=== PATIENT | female | born 1940 | race Caucasian/White ===

== ENCOUNTER 2022-01-18 10:02 | Emergency (ER) | payer OTHER, BC ==
--- OUTSIDE RECORDS SUMMARY | 2022-01-18 10:09 | XMS REPORT | Continuity of Care Document ---
:1940 Author Organization [facility] t Address [address] Brown [address] [place] [id number] Care Team Providers Name Role Phone SHANIQUE MARTÍNEZ Primary Care Physician Unavailable OUMOU SOTO Attending Clinician Unavailable MANUEL SIMS Attending Clinician Unavailable MARTA LOFTON Attending Clinician Unavailable MARTA LOFTON Attending Clinician Unavailable CATE NAZARIO Attending Clinician Unavailable DAMARIS GRUBER Attending Clinician Unavailable Damaris Gruber NP Attending Clinician FAYE MIRAMONTES Attending Clinician Unavailable Faye Miramontes MD Attending Clinician Doctor Unassigned, [place] Attending Clinician Unavailable TAMMY MUÑOZ Attending Clinician Unavailable Oumou Soto MD Attending Clinician Manuel Sims MDHTony Attending Clinician 2, [facility] Attending Clinician Unavailable FELISA CORRIGAN Attending Clinician Unavailable Mateo Funk DO Attending Clinician Josesito Hoffman Attending Clinician Tammy Muñoz MD Attending Clinician Field-Hrt, Visual Attending Clinician Unavailable Susan COREA, Stephany Rosales Attending Clinician [phone] FAYE MIRAMONTES Admitting Clinician Unavailable SIMSMANUEL DELUNA Admitting Clinician Unavailable Payers Payer Name Policy Type Policy Number Effective Date Expiration Date Sonido walter MEDICARE PART A \\T\\ [id number] 2003 B 00:00:00 BCBS TRADITIONAL [id number] 2014 00:00:00 MEDICARE PART A \\T\\ [id number] 2013 B - MEDICARE 00:00:00 MEDICARE SUPPLEMENT [id number] 2016 - BCBS [facility]00[facility]00 [id number] 2004 00:00:00 Problems Condition Condition Condition Status Onset Resolution Last Treating Co mments Source Name Details Category Date Date Treatment Clinician Date 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 7-20 it y of ium [place] complex 00 Medical (MAC) (MAC) Branch infection infection Essential Essential Disease Active Uni vers hypertensi hypertensi 7-20 it y of on on 00:00: [place] 00 Medical Branch Keratoconj Keratoconj Disease Active B nino unctivitis unctivitis 6-13 Co llege sicca due sicca due 00:00: of to to 00 Medicin decreased decreased e tear tear production production , , 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 Co llege and and 00:00: of basement basement 00 Medici n 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 3-02 Co llege eyes eyes 00:00: of 00 Medicin e 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 00 Medicin eyes eyes e 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, glaucoma, 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, right eye, 00 Me dicin 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 [facility] (epiretina (epiretina 9-23 Co llege l l 00:00: of membrane, membrane, 00 Medi cristo right eye) right eye) e ERM OD ERM OD Disease Active [facility] (epiretina (epiretina 11-17 Co llege l l 00:00: of membrane, membrane, 00 Medi cristo right eye) right eye) e POAG POAG Disease Active 2014-02 Overview: [facility] (primary (primary 03-28 Right eye Col lege open-angle open-angle 00:00: of glaucoma) glaucoma) 00 Medi cristo e 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 03-28 Co llege of both of both 00:00: of eyes eyes 00 Medicin e Neoplasm Neoplasm Disease Active [facility] r of of 1-14 College uncertain uncertain 00:00: of behavior behavior 00 Medici n of skin of skin e 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 00:00: of 00 Medicin e Vitreous Vitreous Disease Active [facility] degenerati degenerati 11-17 Co llege on on 00:00: of 00 Medicin e Borderline Borderline Disease Active [facility] glaucoma glaucoma 08-19 Colleg e with with 00:00: of ocular ocular 00 Medicin hypertensi hypertensi e on on Dryness of Dryness of Disease Active [facility] eye eye - College 00:00: of 00 Medicin e Pulmonary Pulmonary Disease Active 2008-02 Last [facility] nodule nodule 03-30 [facility] 00:00: t & Plan: of 00 Progressi Medicin ve RLL e nodules and lingula nodule- r/o Ca vs Laura. PET scan 11/03 - positive uptake, but mild. Discussed different ial diagnosis of Nodules- malignanc y, atypical malignanc y.Will proceed with bronchosc opy and biopsy- Feb 03 at 8 am. Risks benefits discussed in detail-. preop labs ordered. No known No known Disease Metho di active active st problems problems Hospit a l Anxiety Anxiety Problem Active 2019-06-13 Me moria (finding) (finding) 21:17:45 l Active [place] Problem 06/13/2019 [facility] Arthritis Arthritis Problem Active 2019-06-13 Memoria (disorder) (disorder) 21:17:45 l Active [place] Problem 06/13/2019 [facility] Bronchitis Bronchiti Problem Active 2019-06-13 [facility] (disorder) s 21:17:45 l (disorder) Robin n Active Problem 06/13/2019 [facility] Fatigue Fatigue Problem Active 2019-06-13 Me moria (finding) (finding) 21:17:45 l Active [place] Problem 06/13/2019 [facility] Glaucoma Glaucoma Problem Active 2019-06-13 Memoria (disorder) (disorder) 21:17:45 l Active Rick Problem 06/13/2019 [facility] Hyperlipid Hyperlipi Problem Active 2019-06-13 Memoria emia demia 21:17:45 l (disorder) (disorder) He rmann Active Problem 06/13/2019 [facility] Hypertensi Hypertens Problem Active 2019-06-13 Memoria ve lisa 21:17:45 l disorder, disorder, Herm meryl systemic systemic arterial arterial (disorder) (disorder) Active Problem 06/13/2019 [facility] Lumbar Lumbar Problem Active 2019-06-13 Jason angelica radiculopa radiculopa 21:17:45 l thy thy Rick (disorder) (disorder) Active Problem 06/13/2019 [facility] Neuropathy Neuropath Problem Active 2019-06-13 Memoria of lower y of lower 21:17:45 l limb limb [place] (disorder) (disorder) Active Problem 06/13/2019 [facility] Allergies, Adverse Reactions, Alerts Allergy Allergy Status Severity Reaction(s) Onset Inactive Treating Comm ents Source Name Type Date Date Clinician SULFA Drug Active Other-Cmnt 2021-02 Univer s (SULFONA Class 0-27 ity of MIDE 00:00: [place] ANTIBIOT 00 Medical ICS) Branch Sulfa Propensi Active Other - See 2021-02 Abdominal Univers (Sulfona ty to comments 0-27 cramping ity of mide adverse 00:00: [place] Antibiot reaction 00 Medica l ics) s Branch Adhesive Propensi Active Hives Univer s Tape-Chrissie ty to 8-09 ity of icones adverse 00:00: [place] reaction 00 Medical s Branch ADHESIVE DRUG Active Hives Univers TAPE-CHRISSIE 8-09 ity of ICONES 00:00: [place] 00 Medical Branch Fluoresc Propensi Active Other (See Burning B aylor ein-Nas ty to Comments) 6-13 sensation Co llege xinate adverse 00:00: of reaction 00 Medicin s to e drug Adhesive Propensi Active Rash RednessOt [place] ty to 08-12 her College adverse 00:00: reaction( of reaction 00 s): Other Medic in s to (See e substanc Comments) e rednessRe dness Adhesive Drug Active Other (See redness [facility] Codeine Drug Active Other (See Flushing [facility] 08-12 [facility] Sulfa Drug Active Nausea And [facility] (Sulfona [facility]ergy [facility]om[facility]12 [facility] mide [facility] Medical Antibiot 00 Center ics) Adhesive Propensi Active Rash Redness Metho di ty to 08-12 st adverse 00:00: Hospita reaction 00 l s to drug ADHESIVE Allergy [facility] Other [facility] CODEINE Allergy Active Other [facility] SULFA Allergy Active N\\T\\V [facility] (SULFONA 08-12 [facility] MIDE 00:00: Medical ANTIBIOT 00 Center ICS) Sulfa Propensi Active Nausea And [facility] Antibiot ty to Vomiting 08-11 Colleg e ics adverse 00:00: of reaction 00 Medicin s to e drug Sulfa Propensi Active Other Methodi (Sulfona ty to 08-11 reaction( st mide adverse 00:00: s): Hospita Antibiot reaction 00 Nausea l ics) s to And drug Vomiting CODEINE DRUG Active Anaphylaxis Univ ers INGREDI 08-12 ity of 00:00: [place] 00 Medical Branch Codeine Propensi Active Anaphylaxis Un cathy ty to 18 ity of adverse 00:00: [place] reaction 00 Medical s Branch Codeine Propensi Active Dermatitis 2008-02 Face [place] Phosphat ty to 03-30 flush College e adverse 00:00: of reaction 00 Medicin s to e drug Predniso Propensi Active Anxiety 2008-02 [place], [place] j[place] ne ty to 03-30 nervous College adverse 00:00: of reaction 00 Medicin s to e drug Codeine Propensi Active Dermatitis 2008-02 Face [facility] Phosphat ty to 03-[address] adverse 00:00: Hospita reaction 00 l s to drug Social History Social Habit Start Date Stop Date Quantity Comments Source History SDOH [facility] History SDOH [facility] Alcohol Std Medical Cent[facility] r Drinks History SDOH [facility] Alcohol Binge Medical [address] Exposure to 2021-12-11 2021-12-21 Not sure University SARS-CoV-2 00:00:00 10:42:00 [facility] (event) [place] Tobacco use and 2021-09-05 2021-09-05 Smokeless tobacco Un iversity of exposure 00:00:00 00:00:[address] [facility] Social History 2018-04-01 2018-04-01 [facility] 17:31:49 17:31:49 Alcohol intake 2014-12-29 2014-12-29 [facility] [facility] (finding) History SDOH 2014-12-28 2014-12-[address] [facility] Alcohol Comment 00:00:00 00:00:00 Medical C enter Sex [birth year] RASHID Nath kes 00:00:00 00:00:00 Medical Center Smoking Status Start Date Stop Date Source Never smoked tobacco [facility] Medications Ordered Filled Start Stop Current Ordering Indication Dosage Frequency Signature Comments Components Source Medication Medication Date Date Medication? Clinician (SIG) Name Name doxycycline 2021-02 Yes [id number] 100mg Take 1 Univers hyclate 100 0-27 capsule by it y of mg capsule 00:00: mouth in [place] as the Medical morning Branch and 1 capsule in the evening. levoFLOXaci 2021-02 No 750mg 750 mg, U nivers n 0-26 10-26 Oral, ONCE ity of (LEVAQUIN) 17:45: 17:17 NOW, 1 [place] tablet 750 00 :00 dose, On Medic al mg Wed Branch 12/20/21 at 1245, JATINDER
Re ason for Anti-Infec tive: Documented Infection< br>Documen arvin Infection Site: Respirator y
Durat ion of Therapy: 7 days cefTRIAXone 2021-02- No 1000mg 1,000 mg, Univers (ROCEPHIN) 0-26 - IV ity of 1,000 mg in 17:00: 17:27 Piggyback, [place] NaCl 0.9% 00 :00 ONCE, 1 Medical (NS) 50 mL dose, On Branc h MINI-BAG 12/20/21 at 1200, Administer over 30 Minutes, 50 mL
Reas on for Anti-Infec tive: Documented Infection< br>Documen arvin Infection Site: Respirator y
Du ration of Therapy: 7 days iopamidol 2021-02- No [id number] 80mL 80 mL, U nivers (ISOVUE 0-20 12- Intravenou ity o f 370-500 mL) 17:00: 17:00 s, ONCE, 1 [place] injection 00 :00 dose, On Medica l 80 mL Wed Branch 12/20/21 at 1200, Routine levoFLOXaci 2021-02 Yes [id number] 750mg Take 1 Univers n 0-26 tablet by ity of (LEVAQUIN) 00:00: mouth [place] 750 mg 00 every 24 Medical tablet (twenty- Branch ur) hours. benzonatate 2021-02 Yes [id number] 100mg Take 1 Univers 100 mg 0-26 capsule by ity of capsule 00:00: mouth 3 [place] 00 (three) Medical times Branch daily as needed for Cough. levoFLOXaci 2021-02 Yes [id number] 750mg Take 1 Univers n 0-26 tablet by ity of (LEVAQUIN) 00:00: mouth [place] 750 mg 00 every 24 Medical tablet (- Branch ur) hours. benzonatate 2021-02 Yes [id number] 100mg Take 1 Univers 100 mg 0-26 capsule by ity of capsule 00:00: mouth 3 [place] 00 (three) Medical times Branch daily as needed for Cough. fexofenadin Yes 60mg Take 60 mg Univers e 60 mg 7-12 by mouth ity of tablet 14:33: daily. 1 [place] [address] tablet Medical daily Branch ALPHAGAN P Yes Place in Uni vers OPHTHALMIC 7-12 each eye. ity of 14:33: [place] [address] Medical Branch Ascorbate Yes Take by Unive rs Calcium 500 7-12 mouth. ity of mg Tab 14:33: Once a day [place] 03 Medical Branch Magnesium 2022-0 Yes Take by Unive rs (MAGNACAPS) 7-12 mouth. 2 ity of 100 mg Cap 14:33: capsules [place] as 03 twice a Medical day Branch aspirin 81 0 Yes 81mg Take 81 mg U nivers mg EC 7-12 by mouth ity of tablet 14:33: daily. [place] [address] Medical Branch nebulizer Yes Univers accessories 7-12 ity of (HYPERSONIQ 14:33: [place] NEBULIZER Medical [facility]) fexofenadin 0 Yes 60mg Take 60 mg Univers e 60 mg 7-12 by mouth ity of tablet 14:33: daily. 1 [place] [address] tablet Medical daily Branch ALPHAGAN P Yes Place in Uni vers OPHTHALMIC 7-12 each eye. ity of 14:33: [address] Branch Ascorbate Yes Take by Unive rs Calcium 500 7-12 mouth. ity of mg Tab 14:33: Once a day [place] [address] Medical [place] Magnesium Yes Take by Unive rs (MAGNACAPS) 7-12 mouth. 2 ity of 100 mg Cap 14:33: capsules [place] as 03 twice a Medical day Branch aspirin 81 0 Yes 81mg Take 81 mg U nivers mg EC 7-12 by mouth ity of tablet 14:33: daily. [address] Branch nebulizer Yes Univers accessories 7-12 ity of (HYPERSONIQ 14:33: [place] NEBULIZER Medical [facility]) fexofenadin 0 Yes 60mg Take 60 mg Univers e 60 mg 7-12 by mouth ity of tablet 14:33: daily. 1 [place] [address] tablet Medical daily Branch ALPHAGAN P Yes Place in Uni vers OPHTHALMIC 7-12 each eye. ity of 14:33: [address] Branch Ascorbate 0 Yes Take by Unive rs Calcium 500 7-12 mouth. ity of mg Tab 14:33: Once a day [place] [address] Medical Branch Magnesium 0 Yes Take by Unive rs (MAGNACAPS) 7-12 mouth. 2 ity of 100 mg Cap 14:33: capsules [place] as 03 twice a Medical day Branch aspirin 81 2021-0 Yes 81mg Take 81 mg U nivers mg EC 7-12 by mouth ity of tablet 14:33: daily. [place] 03 Medical Branch nebulizer Yes Univers accessories 7-12 ity of (HYPERSONIQ 14:33: [place] NEBULIZER Medical [facility] Branch [facility]) fexofenadin Yes 60mg Take 60 mg Univers e 60 mg 712 by mouth ity of tablet 14:33: daily. 1 tablet Medical daily Branch ALPHAGAN P Yes Place in [facility] vers OPHTHALMIC 7-12 each eye. ity of 14:33: Medical Branch Ascorbate Yes Take by Unive rs Calcium 500 7-12 mouth. ity of mg Tab 14:33: Once a day Medical Branch Magnesium Yes Take by Unive rs (MAGNACAPS) 7-12 mouth. 2 ity of 100 mg Cap 14:33: capsules [place] twice a Medical day Branch aspirin 81 Yes 81mg Take 81 mg U nivers mg EC 12 by mouth ity of tablet 14:33: daily. Medical [place] nebulizer Yes Univers accessories 7-12 ity of (HYPERSONIQ 14:33: [place] NEBULIZER Medical [facility]) CITRACAL Yes Take by Univer s PLUS ORAL 3-31 mouth. ity of 13:09: Twice a Medical Branch hyoscyamine Yes .125mg Take 0.125 Univers 0.125 mg 3-31 mg by ity of tablet 13:09: mouth. [facility] Branch CITRACAL Yes Take by Univer s PLUS ORAL 3-31 mouth. ity of 13:09: Twice a Medical Branch hyoscyamine 0 Yes .125mg Take 0.125 Univers 0.125 mg 3-31 mg by ity of tablet 13:09: mouth. Medical Branch CITRACAL Yes Take by Univer s PLUS ORAL 3-31 mouth. ity of 13:09: Twice a Medical Branch hyoscyamine 0 Yes .125mg Take 0.125 Univers 0.125 mg 3-31 mg by ity of tablet 13:09: mouth. Medical [place] CITRACAL Yes Take by Univer s PLUS ORAL 3-31 mouth. ity of 13:09: Twice a [place] 20 day Medical Branch hyoscyamine 0 Yes .125mg Take 0.125 Univers 0.125 mg 3-31 mg by ity of tablet 13:09: mouth. 20 Medical Branch losartan 25 0 Yes [id number] 25mg Take 1 Univers mg tablet 3-31 tablet by ity o f 00:00: mouth [place] 00 daily. Medical Branch losartan 25 2021-0 Yes [id number] 25mg Take 1 Univers mg tablet 3-31 tablet by ity o f 00:00: mouth [place] 00 daily. Medical Branch losartan 25 2021-0 Yes [id number] 25mg Take 1 Univers mg tablet 3-31 tablet by ity o f 00:00: mouth [place] 00 daily. Medical Branch losartan 25 0 Yes [id number] 25mg Take 1 Univers mg tablet 3-31 tablet by ity o f 00:00: mouth [place] 00 daily. Medical Branch multivit-mi Yes 1{tbl} Take 1 Me thodi nerals/ferr 7-07 tablet by ou fum 14:24: mouth. Hospita (MULTI 07 l VITAMIN ORAL) pregabalin Yes 50mg [id number] Take 50 mg Methodi (LYRICA) 50 7- [id number] by mouth 3 st MG capsule 14:24: 3D (three) Hosp parmjit 07 times a l day. ascorbate Yes Take by Metho di calcium 7- mouth. st (VITAMIN C 14:24: Hospita ORAL) 07 l LUTEIN ORAL Yes Take by Met hodi 7-[address] 14:24: Hospita 07 l B-complex Yes 1{tbl} QD Take 1 Meth shashi with 7-07 tablet by vitamin C 14:24: mouth Hospita tablet 07 daily. l Lactobacill Yes Take by Met hodi us 7- mouth. st acidophilus 14:24: Hospit a (PROBIOTIC 07 l ORAL) calcium Yes Take by Methodi citrate/vit 7-07 mouth. martínez D3 14:24: Hospita (CITRACAL 07 l REGULAR ORAL) multivit-mi Yes 1{tbl} Take 1 Me thodi nerals/ferr 7-07 tablet by ous fum 14:24: mouth. Hospita (MULTI 07 l VITAMIN ORAL) pregabalin Yes 50mg Q.[id number] Take 50 mg Methodi (LYRICA) 50 08-31 [id number] by mouth [address] MG capsule 14:24: 3D (three) Hosp parmjit 07 times a l day. ascorbate Yes Take by Metho di calcium 7- mouth. st (VITAMIN C 14:24: Hospita ORAL) 07 l LUTEIN ORAL Yes Take by Met hodi - mouth. st 14:24: Hospita 07 l B-complex Yes 1{tbl} QD Take 1 Meth shashi with 08-31 tablet by vitamin C 14:24: mouth Hospita tablet 07 daily. l Lactobacill Yes Take by Met hodi us 08-[address] acidophilus 14:24: Hospit a (PROBIOTIC 07 l ORAL) calcium Yes Take by Methodi citrate/vit 08-[address] martínez D3 14:24: Hospita (CITRACAL 07 l REGULAR ORAL) gentamicin Yes MIX 1 VIAL U nivers 40 mg/mL 2-23 (80MG) ity of injection 00:00: WITH 2ML [place] 00 OF NORMAL Medical SALINE AND Branch NEBULIZE TWICE A DAY FOR 7 DAYS ON AND FOR 7 DAYS OFF gentamicin Yes MIX 1 VIAL U nivers 40 mg/mL 2-23 (80MG) ity of injection 00:00: WITH 2ML [place] 00 OF NORMAL Medical SALINE AND Branch NEBULIZE TWICE A DAY FOR 7 DAYS ON AND FOR 7 DAYS OFF gentamicin Yes MIX 1 VIAL U nivers 40 mg/mL 2-23 (80MG) ity of injection 00:00: WITH 2ML [place] 00 OF NORMAL Medical SALINE AND Branch NEBULIZE TWICE A DAY FOR 7 DAYS ON AND FOR 7 DAYS OFF gentamicin Yes MIX 1 VIAL U nivers 40 mg/mL 2-23 (80MG) ity of injection 00:00: WITH 2ML [place] 00 OF NORMAL Medical SALINE AND Branch NEBULIZE TWICE A DAY FOR 7 DAYS ON AND FOR 7 DAYS OFF estazolam 2 Yes TAKE 1 Univ ers mg tablet 2-11 TABLET BY ity o f 00:00: MOUTH AT [place] 00 BEDTIME Medical NEEDED FOR Branch SLEEP estazolam 2 Yes TAKE 1 Univ ers mg tablet 2-11 TABLET BY ity o f 00:00: MOUTH AT [place] BEDTIME Medical NEEDED FOR Branch SLEEP estazolam 2 Yes TAKE 1 Univ ers mg tablet 2-11 TABLET BY ity o f 00:00: MOUTH AT [place] BEDTIME Medical NEEDED FOR Branch SLEEP estazolam 2 Yes TAKE 1 Univ ers mg tablet 2-11 TABLET BY ity o f 00:00: MOUTH AT [place] BEDTIME Medical NEEDED FOR Branch SLEEP atorvastati Yes 10mg Take 10 mg Univers n 20 mg 2-02 by mouth ity of tablet 00:00: daily. Medical Branch azithromyci Yes TAKE 2 Univ ers n 250 mg 2-02 TABLETS BY ity o f tablet 00:00: MOUTH ON [place] Saturday, Medical SATURDAY, AND SATURDAY EACH atorvastati Yes 10mg Take 10 mg Univers n 20 mg 2-02 by mouth ity of tablet 00:00: daily. Medical Branch azithromyci Yes TAKE 2 Univ ers n 250 mg 2-02 TABLETS BY ity o f tablet 00:00: MOUTH ON [place] Saturday, Medical SATURDAY, AND SATURDAY EACH WEEK atorvastati Yes 10mg Take 10 mg Univers n 20 mg 2-02 by mouth ity of tablet 00:00: daily. Medical Branch azithromyci Yes TAKE 2 Univ ers n 250 mg 2-02 TABLETS BY ity o f tablet 00:00: MOUTH ON [place] Saturday, Medical SATURDAY, AND SATURDAY EACH WEEK atorvastati Yes 10mg Take 10 mg Univers n 20 mg 2-02 by mouth ity of tablet 00:00: daily. Medical Branch azithromyci Yes TAKE 2 Univ ers n 250 mg 2-02 TABLETS BY ity o f tablet 00:00: MOUTH ON [place] Saturday, Medical SATURDAY, AND SATURDAY EACH WEEK timolol 2019-02 Yes Timoptic Univer s maleate PF 0-15 [place] ity of ophthalmic 00:00: (PF) 0.5 % [place] d[place] 00 eye drops Medical (TIMOPTIC in a Branch OCUDOSE, dropperett PF,) 0.5 % e drops tafluprost, 2019-02 Yes 1[drp] 1 Drop. U nivers PF, 0-15 ity of (ZIOPTAN, 00:00: [place] PF,) 0.0015 00 Medical % Dpet Branch timolol 2019-02 Yes Timoptic Univer s maleate PF 0-15 [place] ity of ophthalmic 00:00: (PF) 0.5 % [place] d[place] 00 eye drops Medical (TIMOPTIC in a Branch OCUDOSE, dropperett PF,) 0.5 % e drops tafluprost, 2019-02 Yes 1[drp] 1 Drop. U nivers PF, 0-15 ity of (ZIOPTAN, 00:00: [place] PF,) 0.0015 00 Medical % Dpet Branch timolol 2019-02 Yes Timoptic Univer s maleate PF 0-15 [place] ity of ophthalmic 00:00: (PF) 0.5 % [place] d[place] 00 eye drops Medical (TIMOPTIC in a Branch OCUDOSE, dropperett PF,) 0.5 % e drops tafluprost, 2019-02 Yes 1[drp] 1 Drop. U nivers PF, 0-15 ity of (ZIOPTAN, 00:00: [place] PF,) 0.0015 00 Medical % Dpet Branch timolol 2019-02 Yes Timoptic Univer s maleate PF 0-15 [place] ity of ophthalmic 00:00: (PF) 0.5 % [place] d[place] 00 eye drops Medical (TIMOPTIC in a Branch OCUDOSE, dropperett PF,) 0.5 % e drops tafluprost, 2019-02 Yes 1[drp] 1 Drop. U nivers PF, 0-15 ity of (ZIOPTAN, 00:00: [place] PF,) 0.0015 00 Medical % Dpet Branch pregabalin Yes 75 mg = 1 Me moria 75 MG Oral 4-02 cap, PO, l Capsule 20:07: Bedtime, # Herm meryl [Lyrica] 00 30 cap, 3 Refill(s), [id number] pregabalin 2020-0 Yes 75 mg = 1 Me moria 75 MG Oral 4-02 cap, PO, l Capsule 20:07: Bedtime, # Karon meryl [Lyrica] 00 30 cap, 3 Refill(s), Pharmacy: [facility] #[id number] pregabalin 2020-0 No 75 mg = 1 Me moria 75 MG Oral 4-02 cap, PO, l Capsule 16:34: Bedtime, X Karon sheth [Lyrica] 00 30 day, # 30 cap, 3 Refill(s), Pharmacy: [place] [id number] [facility] pregabalin 2020-0 No 75 mg = 1 Me moria 75 MG Oral 4-02 cap, PO, l Capsule 16:34: Bedtime, X Karon sheth [Lyrica] 00 30 day, # 30 cap, 3 Refill(s), Pharmacy: [place] [id number] [facility] Bioflavonoi 2020-0 Yes 1{tbl} Take 1 Tab [facility] d Products 1-30 by mouth [facility] (CHANTEL-C) 21:21: daily. of 500 MG TABS 52 Medicin e Multiple 2020-0 Yes 1{tbl} Take 1 Tab B aylor Vitamin 1-30 by mouth [place] (ONE DAILY) 21:21: daily. of TABS 52 Medicin e Greig-3 2020-0 Yes 1[tbs_u Take 1 [facility] Fatty Acids 1-30 s] Tbsp by [facility] (OMEGA 3 21:21: mouth of OR) 52 daily. Medicin e Magnesium 2020-0 Yes 2{capsu Take 2 [place] Oxide 400 1-30 le} Caps by [place] MG CAPS 21:21: mouth At of 52 bedtime. Medicin e Calcium 2020-0 Yes Take by Jovanni Citrate 1-30 mouth. [place] (CITRACAL 21:21: of PO) 52 Medicin e losartan 2020-0 Yes losartan [facility] (COZAAR) 50 1-30 50 mg College MG tablet 21:21: tablet of 52 Medicin e calcium 2020-0 Yes Take by [facility] citrate 1-30 mouth. [place] (CALCITRATE 21:21: of ) 950 MG 52 Medicin tablet e Timolol 2020-0 Yes 1[drp] Place 1 [facility] Maleate PF 1-30 Drop into Tamela ege (TIMOPTIC 00:00: both eyes of OCUDOSE) 00 two times Medici n 0.5 % SOLN daily. e ZIOPTAN Yes 1[drp] Place 1 [facility] 0.0015 % 1-30 Drop into Colleg e SOLN 00:00: both eyes of 00 daily. Medicin e lidocaine Yes [id number] Apply up [facility] (XYLOCAINE) 1-06 to three [place]ela ege 5 % 00:00: times a of ointment 00 day for Medicin pain in e finger. pregabalin 2018-02 Yes 75 mg = 1 Me moria 75 MG Oral 2-19 cap, PO, l Capsule 17:26: Bedtime, # Herm meryl [Lyrica] 55 30 cap, 3 Refill(s) pregabalin 2018-02 Yes 75 mg = 1 Me moria 75 MG Oral 2-19 cap, PO, l Capsule 17:26: Bedtime, # Herm meryl [Lyrica] 55 30 cap, 3 Refill(s) Estazolam 2 2018-02 Yes TAKE ONE Ba ylor MG TABS 1-08 TABLET BY [place] 00:00: MOUTH of 00 NEEDED AT Medicin BEDTIME e FOR SLEEP azithromyci 2018-02 Yes TAKE 2 [facility] or n 1-08 TABLETS BY [place] (ZITHROMAX) 00:00: MOUTH ONCE of 250 MG 00 DAILY ON Medicin tablet SATURDAY,SAT e ,Sat tobramycin- 2019- No 1[in_us Apply 1 [facility] dexamethaso 10-29 09-05 ] Inch to Tamela ege ne 00:00: 04:59 eye once of (TOBRADEX) 00 :00 for 1 Medicin 0.3-0.1 % dose. e ophthalmic ointment ZIOPTAN Yes 1[drp] Place 1 [facility] 0.0015 % 8-02 Drop into Colleg e ophthalmic 00:00: both eyes of solution 00 daily. Medicin e ZIOPTAN 2020- No 1[drp] Place 1 [facility] or 0.0015 % 8-02 01-30 Drop into Colle ge ophthalmic 00:00: 00:00 both eyes o f solution 00 :00 daily. Medicin e pregabalin Yes 75 mg = 1 Me moria 75 MG Oral 5-07 cap, PO, l Capsule 16:20: Bedtime, # Herm meryl [Lyrica] 04 30 cap, 3 Refill(s) pregabalin 2019-0 Yes 75 mg = 1 Me moria 75 MG Oral 5-07 cap, PO, l Capsule 16:20: Bedtime, # Karon meryl [Lyrica] 04 30 cap, 3 Refill(s) Bioflavonoi 2019-0 Yes 1{tbl} Take 1 Tab Jovanni d Products -02 by mouth Colle ge (CHANTEL-C) 19:07: daily. of 500 MG TABS 29 Medicin e Multiple 2019-0 Yes 1{tbl} Take 1 Tab B aylor Vitamin -02 by mouth [place] (ONE DAILY) 19:07: daily. of TABS 29 Medicin e Greig-3 2018- Yes 1[tbs_u Take 1 [facility] Fatty Acids 05-27 s] Tbsp by [facility] (OMEGA 3 19:07: mouth of OR) 29 daily. Medicin e Magnesium 2018- Yes 2{capsu Take 2 [place] jacobo Oxide 400 05-27 le} Caps by [place] MG CAPS 19:07: mouth At of 29 bedtime. Medicin e Sodium Yes Take by [facility] Chloride, 4- nebulizati Tamela ege Inhalant, 19:07: on. of (HYPER-CONNIE) 29 Medicin 7 % NEBU e Calcium Yes Take by [facility] Citrate 05-27 mouth. College (CITRACAL 19:07: of PO) 29 Medicin e Sodium Yes Take by [facility] Chloride, 4- nebulizati Tamela ege Inhalant, 19:07: on. of (HYPER-CONNIE) 29 Medicin 7 % NEBU e Timolol Yes 1[drp] Place 1 [facility] Maleate PF 4-02 Drop into Tamela ege (TIMOPTIC 00:00: both eyes of OCUDOSE) 00 two times Medici n 0.5 % SOLN daily. e Timolol 2020- No 1[drp] Place 1 [facility] or Maleate PF 4-02 01-30 Drop into Col lege (TIMOPTIC 00:00: 00:00 both eyes of OCUDOSE) 00 :00 two times Medici n 0.5 % SOLN daily. e erythromyci 2018- Yes [id number] Apply 02/[address] (ROMYCIN) 00:00: three of ophthalmic 00 times a da Med icin ointment right eye e erythromyci Yes [id number] Apply 02/[address] (ROMYCIN) 00:00: three of ophthalmic 00 times a da Med icin ointment right eye e pregabalin No 75 mg = 1 Me moria 75 MG Oral 2-05 cap, PO, l Capsule 18:01: Bedtime, # Herm meryl [Lyrica] 00 30 cap, 3 Refill(s) pregabalin No 75 mg = 1 Me moria 75 MG Oral 2-05 cap, PO, l Capsule 18:01: Bedtime, # Herm meryl [Lyrica] 00 30 cap, 3 Refill(s) tafluprost Yes 1 drp, Memor ia 2-05 BOTH EYES, l 17:58: QPM, 0 Rick 00 Refill(s) tafluprost Yes 1 drp, Memor ia 2-05 BOTH EYES, l 17:58: QPM, 0 [place] 00 Refill(s) 12 HR Yes 1 drp, Memoria Timolol 5 2-05 BOTH EYES, l MG/ML 17:18: BID, 0 Rick Ophthalmic 00 Refill(s) Solution [Timoptic] Colistin Yes 0 Memoria 2-05 Refill(s) l 17:18: [place] 00 gabapentin No 300 mg = 1 M emoria 300 MG Oral 2-05 cap, PO, l Capsule 17:18: Bedtime, 0 Herm meryl 00 Refill(s) Hydrochloro Yes 12.5 mg, Me moria thiazide 2-05 PO, Daily, l 17:18: 0 Rick 00 Refill(s) Hyoscyamine No 0 Memori a 2-05 Refill(s) l 17:18: Rick 00 hyoscyamine Yes 0.125 mg = Memoria 0.125 mg 2-05 1 tab, PO, l oral tablet 17:18: PRN, PRN He rmann 00 spasm, # 40 tab, 0 Refill(s) 12 HR 2019-0 Yes 1 drp, Memoria Timolol 5 2-05 BOTH EYES, l MG/ML 17:18: BID, 0 Rick Ophthalmic 00 Refill(s) Solution [Timoptic] Hydrochloro Yes 12.5 mg, Me moria thiazide 2-05 PO, Daily, l 17:18: 0 [place] 00 Refill(s) Colistin Yes 0 Memoria 2-05 Refill(s) l 17:18: Rick 00 gabapentin No 300 mg = 1 M emoria 300 MG Oral 2-05 cap, PO, l Capsule 17:18: Bedtime, 0 Herm meryl 00 Refill(s) Hyoscyamine No 0 Memori a 2-05 Refill(s) l 17:18: [place] 00 hyoscyamine Yes 0.125 mg = Memoria 0.125 mg 2-05 1 tab, PO, l oral tablet 17:18: PRN, PRN He rm 00 spasm, # 40 tab, 0 Refill(s) TIMOPTIC Yes PLACE 1 Method i OCUDOSE, 1-[address] PF, 0.5 % 00:00: BOTH EYES Hos carl dropperette 00 TWO TIMES l DAILY. TIMOPTIC Yes PLACE 1 Method i OCUDOSE, 1-[address] PF, 0.5 % 00:00: BOTH EYES Hos carl dropperette 00 TWO TIMES l DAILY. amLODIPine Yes 5mg QD Take 5 mg Me thodi (NORVASC) 5 1-[address] mg tablet 00:00: daily. Hospit a 00 l amLODIPine Yes 5mg QD Take 5 mg Me thodi (NORVASC) 5 1-[address] mg tablet 00:00: daily. Hospit a 00 l colistimeth 2017-02 Yes Method i ate 2-24 st (COLISTIN) 00:00: Hospita 150 mg 00 l injection colistimeth 2017-02 Yes Method i ate 2-24 st (COLISTIN) 00:00: Hospita 150 mg 00 l injection hyoscyamine 2017-02 Yes DISSOLVE Ba ylor (LEVSIN/SL) 1-15 1-2 College 0.125 MG SL 00:00: TABLETS of tablet 00 UNDER THE Medicin TONGUE e EVERY 4-6 HOURS NEEDED. hyoscyamine 2017-02 Yes DISSOLVE Me thodi (LEVSIN) -15 1-2 st 0.125 mg SL 00:00: TABLETS Hos carl tablet 00 UNDER THE l TONGUE EVERY 4-6 HOURS NEEDED. hyoscyamine 2017-02 Yes DISSOLVE Me thodi (LEVSIN) -15 1-2 st 0.125 mg SL 00:00: TABLETS Hos carl tablet 00 UNDER THE l TONGUE EVERY 4-6 HOURS NEEDED. tafluprost, Yes 1[drp] Apply 1 M ethodi PF, 9-[address] (ZIOPTAN, 00:00: eye. Hospita PF,) 0.0015 00 l % dropperette tafluprost, Yes 1[drp] Apply 1 M ethodi PF, 9-[address] (ZIOPTAN, 00:00: eye. Hospita PF,) 0.0015 00 l % dropperette TAFLUPROST/ 2014-02 Yes [facility] (FATIMAH, 08:41: Medical PF, OPHT) [facility] Missing or 2014-[address] Non-Formula -04 [facility] ry 08:41: Medical Medication [facility] TAFLUPROST/ 2014-02 Yes [facility] PF 1-04 eye(s[facility] (RENETTAOPTAN, 08:41: Medical PF, OPHT) 44 Center Missing or 2014-[address] Non-Formula -04 [facility] 08:41: Medical Medication 44 Center ascorbic 2014-02 Yes 1000mg QD Take 1,[address] acid 1-04 mg by [facility] (VITAMIN C) 08:41: mouth Medic al 1000 MG 43 daily. Center tablet magnesium 2014-02 Yes Take by [facility] Tab 104 mouth. [facility] tablet 08:41: Medical [facility] Center cetirizine 2014-02 Yes 10mg QD Take [address] (ZYRTEC) 10 04 by mouth Luke s MG tablet 08:41: daily. Medica l 43 [place] brimonidine 2014-02 Yes 1[drp] [id number] [address] (ALPHAGAN) 02-28 [id number] (three) [facility] 0.2 % 08:41: 3D times Medical ophthalmic 43 daily. [place] solution ascorbic 2014-02 Yes 1000mg QD Take 1,[address] acid 1-04 mg by [facility] (VITAMIN C) 08:41: mouth Medic al 1000 MG 43 daily. [place] tablet magnesium 2014-02 Yes Take by [facility] mg Tab 1-04 mouth. [facility] tablet 08:41: Medical 43 [place] cetirizine 2014-02 Yes 10mg QD Take [address] (ZYRTEC) 10 1-04 by mouth Luke s MG tablet 08:41: daily. Medica l 43 [place] brimonidine 2014-02 Yes 1[drp] [id number] [address] (ALPHAGAN) 1- [id number] (three) [facility] 0.2 % 08:41: 3D times Medical ophthalmic 43 daily. [place] solution rifampin Yes Take by [facility] (RIFADINE) 5-27 mouth. College 150 MG 00:00: of capsule 00 Medicin e ethambutol Yes Take by [facility] or (MYAMBUTOL) 5-27 mouth. Colleg e 400 MG 00:00: of tablet 00 Medicin e Immunizations Ordered Filled Immunization Date Status Comments Sour e Immunization Name Name SARS-COV-2 COVID-19 2020-04-15 Completed Unive rsity of PFIZER VACCINE 00:00:00 [facility] SARS-COV-2 COVID-19 2020-04-15 Completed Unive rsity of PFIZER VACCINE 00:00:00 [facility] SARS-COV-2 COVID-19 2020-04-15 Completed Unive rsity of PFIZER VACCINE 00:00:00 [facility] SARS-COV-2 COVID-19 2020-04-15 Completed Unive rsity of PFIZER VACCINE 00:00:00 [facility] PFIZER COVID-19 2020-04-15 Completed Confucianist MRNA VACCINATION 00:00:00 [facility] PFIZER COVID-19 2020-04-15 Completed Confucianist MRNA VACCINATION 00:00:00 [facility] SARS-COV-2 COVID-19 2020-03-25 Completed Unive rsity of PFIZER VACCINE 00:00:00 [facility] SARS-COV-2 COVID-19 2020-03-25 Completed Unive rsity of PFIZER VACCINE 00:00:00 [facility] SARS-COV-2 COVID-19 2020-03-25 Completed Unive rsity of PFIZER VACCINE 00:00:00 [facility] SARS-COV-2 COVID-19 2020-03-25 Completed Unive rsity of PFIZER VACCINE 00:00:00 [facility] PFIZER COVID-19 2020-03-25 Completed Confucianist MRNA VACCINATION 00:00:00 [facility] PFIZER COVID-19 2020-03-25 Completed Confucianist MRNA VACCINATION 00:00:00 Hospital Swine Flu (H1N1) 2009-01-27 Completed [facility] C ollege of 00:00:00 Medicine Swine Flu (H1N1) 2009-01-27 Completed [facility] ollege of 00:00:00 Medicine H1n1 Vaccine 2009-01-27 Completed University o f 00:00:00 [facility] H1n1 Vaccine 2009-01-27 Completed University o f 00:00:00 [facility] H1n1 Vaccine 2009-01-27 Completed University o f 00:00:00 [facility] H1n1 Vaccine 2009-01-27 Completed University o f 00:00:00 [facility] Vital Signs Vital Name Observation Time Observation Value Comments Source Systolic blood 2021-12-21 15:44:00 186 mm[Hg] Univer sity of pressure [facility] Diastolic blood 2021-12-21 15:44:00 93 mm[Hg] Unive rsity of pressure [facility] Heart rate 2021-12-21 15:44:00 75 /min [facility] Body temperature 2021-12-21 15:44:00 37.06 Azul [facility] Res[facility] rate 2021-12-21 15:44:00 18 /min [facility] Body height 2021-12-21 15:44:00 162.6 cm [facility] Body weight 2021-12-21 15:44:00 51.256 kg [facility] BMI 2021-12-21 15:44:00 19.40 kg/m2 [facility] Oxygen saturation in 2021-12-21 15:44:00 100 /min [facility] Arterial blood by [facility] Pulse oximetry Branch Systolic blood 2021-12-20 17:19:44 168 mm[Hg] Univer sity of pressure [facility] Diastolic blood 2021-12-20 17:19:44 61 mm[Hg] Unive rsity of pressure [facility] Heart rate 2021-12-20 17:19:44 64 /min [facility] Body temperature 2021-12-20 17:19:44 37.11 Azul Univ ersity [facility] Respiratory rate 2021-12-20 17:19:44 18 /min Univ ersity [facility] Oxygen saturation in 2021-12-20 17:19:44 97 /min University of Arterial blood by [facility] Pulse oximetry Branch Body weight 2021-12-20 15:10:00 51.256 kg [facility] BMI 2021-12-20 15:10:00 19.40 kg/m2 [facility] Systolic blood 2021-10-03 15:11:00 151 mm[Hg] Univer sity of pressure [facility] Diastolic blood 2021-10-03 15:11:00 64 mm[Hg] Unive rsity of pressure [facility] Heart rate 2021-10-03 15:11:00 62 /min [facility] Oxygen saturation in 2021-10-03 15:11:00 98 /min University of Arterial blood by [facility] Pulse oximetry Branch Body height 2021-10-03 15:03:00 162.6 cm [facility] Body weight 2021-10-03 15:03:00 51.71 kg [facility] BMI 2021-10-03 15:03:00 19.57 kg/m2 [facility] Systolic (mm Hg) 2019-02-12 17:01:00 Jason marshall Rick Diastolic (mm Hg) 2019-02-12 17:01:00 Paris diaz [place] Heart Rate 2019-02-12 17:01:00 [facility] Rick Respitory Rate 2019-02-12 17:01:00 Will rodriguez Rick Height 2019-02-12 17:01:00 162.56 cm [facility] [place] Weight 2019-02-12 17:01:00 [facility] Rick BMI Calculated 2019-02-12 17:01:00 Will Wernerann BMI Calculated 2018-07-01 15:56:00 Will rodriguez [place] Height 2018-07-01 15:56:00 162.56 cm [facility] [place] Weight 2018-07-01 15:56:00 [facility] Rick Systolic (mm Hg) 2018-07-01 15:56:00 Jason rial Rick Diastolic (mm Hg) 2018-07-01 15:56:00 Mem orial Rick Respitory Rate 2018-07-01 15:56:00 Memori al Rick Heart Rate 2018-07-01 15:56:00 [facility] Rick Systolic (mm Hg) 2018-04-01 17:16:00 Jason rial Rick Diastolic (mm Hg) 2018-04-01 17:16:00 Mem orial [place] Heart Rate 2018-04-01 17:16:00 [facility] [place] Respitory Rate 2018-04-01 17:16:00 Memori al Rick Height 2018-04-01 17:16:00 162.56 cm [facility] Rick Weight 2018-04-01 17:16:00 [facility] Rick BMI Calculated 2018-04-01 17:16:00 Memori al Rick Procedures Procedure Date / Time Performing Clinician Source Performed CONSENT/REFUSAL FOR 2021-12-21 15:39:02 [facility] CT CHEST PULMONARY 2021-12-20 15:55:00 Faye Miramontes [facility] ANGIOGRAM Medical Branch EKG-12 LEAD 2021-12-20 15:46:49 Faye Miramontes [facility] TROPONIN I 2021-12-20 15:36:00 Faye Miramontes [facility] COMP. METABOLIC PANEL 2021-12-20 15:36:00 Faye Miramontes [facility] ([id number]) [facility] CBC WITH DIFF 2021-12-20 15:36:00 Faye Miramontes [facility] RAPID INFLUENZA A/B 2021-12-20 15:36:00 Faye Miramontes [facility] N-TERMINAL PRO-BNP 2021-12-20 15:36:00 Faye Miramontes [facility] COVID-19 (ID NOW RAPID 2021-12-20 15:36:00 Faye Miramontes [facility] TESTING) Medical Branch NOTICE OF PRIVACY 2021-12-20 15:05:02 Doctor Unassigned, No Univ ersity [facility] PRACTICES Name Medical Branch CONSENT/REFUSAL FOR 2021-12-20 15:04:07 Doctor Unassigned, [facility] Name Medical Branch 24-2 LUZMARIA FASTER,OU-BOTH 2021-11-28 13:32:06 [facility] Medicine HRT, GLAUCOMA - OU - 2019-03-26 21:47:[address] [facility] BOTH EYES Medicine CORNEAL TOPOGRAPHY - OU 2018-11-10 23:02:48 Stephany Davis [facility] BOTH EYES S. Medicine Adenoidectomy [facility] Cataract surgery [facility] Tonsillectomy [facility] Plan of Care Planned Activity Planned Date Details Comments Source Future Scheduled 2022-01-15 HEPATITIS B Confucianist Test 09:51:01 VACCINES (1 of 3 - Hospital 3-dose series) [code = HEPATITIS B VACCINES (1 of 3 - 3-dose series)] Future Scheduled 2022-01-15 SHINGLES VACCINES Method ist Test 09:51:01 (1 of 2) [code = Hospital SHINGLES VACCINES (1 of 2)] Future Scheduled 2022-01-15 65+ PNEUMOCOCCAL Methodi st Test 09:51:01 VACCINE (1 - PCV) Hospital [code = 65+ PNEUMOCOCCAL VACCINE (1 - PCV)] Future Scheduled 2022-01-15 COVID-19 VACCINE (3 Meth odist Test 09:51:01 - Booster for Hospital Pfizer series) [code = COVID-19 VACCINE (3 - Booster for Pfizer series)] Future Scheduled 2022-01-15 INFLUENZA VACCINE Method ist Test 09:51:01 [code = INFLUENZA Hospital VACCINE] Future Scheduled 2021-12-19 HEPATITIS B Confucianist Test 06:50:02 VACCINES (1 of 3 - Hospital 3-dose series) [code = HEPATITIS B VACCINES (1 of 3 - 3-dose series)] Future Scheduled 2021-12-19 SHINGLES VACCINES Method ist Test 06:50:02 (1 of 2) [code = Hospital SHINGLES VACCINES (1 of 2)] Future Scheduled 2021-12-19 65+ PNEUMOCOCCAL Methodi st Test 06:50:02 VACCINE (1 - PCV) Hospital [code = 65+ PNEUMOCOCCAL VACCINE (1 - PCV)] Future Scheduled 2021-12-19 COVID-19 VACCINE (3 Meth odist Test 06:50:02 - Booster for Hospital Pfizer series) [code = COVID-19 VACCINE (3 - Booster for Pfizer series)] Future Scheduled 2021-12-19 INFLUENZA VACCINE Method ist Test 06:50:02 [code = INFLUENZA Hospital VACCINE] Future Scheduled MEDICARE AWV [code [facility] r [place] Test = MEDICARE AWV] of Medicine Future Scheduled TETANUS SHOT [facility] Tamela ege Test (ADULT) [code = of Medicine TETANUS SHOT (ADULT)] Future Scheduled FALL SCREEN [code = [facility] Test FALL SCREEN] of Medicine Future Scheduled OSTEOPOROSIS [facility] Tamela ege Test SCREENING [code = of Medicin e OSTEOPOROSIS SCREENING] Future Scheduled PNEUMOVAX >=65 [facility] Co llege Test (PPSV23) [code = of Medicine PNEUMOVAX >=65 (PPSV23)] Future Scheduled PREVNAR >= 65 [facility] Col lege Test (PCV13) [code = of Medicine PREVNAR >= 65 (PCV13)] Future Scheduled FLU VACCINE > 6 [facility] C ollege Test MONTHS [code = FLU of Medici ne VACCINE > 6 MONTHS] Future Scheduled TETANUS SHOT [facility] Tamela ege Test (ADULT) [code = of Medicine TETANUS SHOT (ADULT)] Future Scheduled FALL SCREEN [code = [facility] Test FALL SCREEN] of Medicine Future Scheduled OSTEOPOROSIS [facility] Tamela ege Test SCREENING [code = of Medicin e OSTEOPOROSIS SCREENING] Future Scheduled PNEUMOVAX >=65 [facility] Co llege Test (PPSV23) [code = of Medicine PNEUMOVAX >=65 (PPSV23)] Future Scheduled PREVNAR >= 65 [facility] Col lege Test (PCV13) [code = of Medicine PREVNAR >= 65 (PCV13)] Future Scheduled MEDICARE AWV [facility] Tamela ege Test (Initial) [code = of Medicin e MEDICARE AWV (Initial)] Future Scheduled FLU VACCINE > 6 [facility] C ollege Test MONTHS [code = FLU of Medici ne VACCINE > 6 MONTHS] Future Scheduled JULES VISUAL 1 Occurrences [facility] Test FIELD - OU - BOTH starting of Medicin e EYES [code = 15900] 03/26/2019 until 06/24/2020 Encounters Start End Encounter Admission Attending Care Care Encounter Source Date/Time Date/Time Type Type Clinicians Facility Department ID 2022-01-15 2022-01-15 Outpatient R MARTA LOFTON [facility] [id number] Univers 10:00:00 10:00:00 MARTA LOFTON i ty of [facility] 2021-12-21 2021-12-21 [facility] [id number] Univers 10:45:00 11:21:00 DAMARIS ity [facility] 2021-12-21 2021-12-21 Emergency [facility] [id number] Univers 10:45:00 11:21:00 Damaris VILLANUEVA [id number] ity [id number] [phone] [place] [id number] [place] 2021-12-20 2021-12-20 Emergency [facility] [id number] Univers 10:16:00 12:30:00 FAYE ity [facility] 2021-12-20 2021-12-20 [facility] [id number] Univers 10:16:00 12:30:00 Faye VILLANUEVA [id number] [place]y [id number] [id number] [facility] 084 [place] 2021-12-20 2021-12-20 Orders Doctor CARSON [id number] Univers 00:00:00 00:00:00 Only Unassigned, MICHELLE [id number] [facility] [id number] Nicholas as [id number] [facility] 009 Branch 2021-12-06 2021-12-06 Outpatient R BETHANY [facility] [id number] Univers 10:00:00 10:00:00 SENDIL ity [facility] 2021-12-06 2021-12-06 Outpatient Ezequiel SIMS [facility] [id number] Univers 10:00:00 10:00:00 SENDIL ittrinidad [facility] 2021-11-28 2021-11-28 Outpatient [facility]OILA [facility] [id number] [facility] 12:38:36 14:13:50 TAMMY Og of Medicin e 2021-11-28 2021-11-28 Outpatient R BETHANY [facility] [id number] Univers 13:00:00 13:00:00 SENDIL ity [facility] 2021-11-28 2021-11-28 [facility] [id number] Univers 13:00:00 13:00:00 SENDIL ity [facility] 2021-10-09 2021-10-09 [facility] [id number] Univers 09:00:00 09:00:00 [facility] 2021-10-03 2021-10-03 [facility] [id number] Univers 09:45:00 11:03:16 Visit Oumou VILLANUEVA [id number] [id number] [id number] T[place] dical [facility] 205 [facility] 2021-10-03 2021-10-03 [facility] [id number] Univers 09:45:00 11:03:[address] [facility] 2021-10-03 2021-10-03 [facility] [id number] Univers 09:45:00 09:45:[address] [facility] 2021-09-13 2021-09-13 [facility] [id number] Univers 13:00:00 13:00:00 SENDIL ity [facility] 2021-09-13 2021-09-13 Tele[facility] [id number] Univers 00:00:00 00:00:00 Sendruby V[place]ANUEVA [id number] [id number] [id number] Tx dical NAL 059 [facility] 2021-09-05 2021-09-05 [facility] [id number] Univers 15:20:59 23:59:00 SENDIL ity [facility] 2021-09-05 2021-09-05 Office [facility] [id number] Univers 14:30:00 15:28:59 Visit Manuel V[place]AN[place] [id number] [id number] [id number] [address] 2021-09-05 2021-09-05 Outpatient R BETHANY [facility] [id number] Univers 14:30:00 14:30:00 SENDIL ity [facility] 2021-08-24 2021-08-24 Outpatient R BETHANY [facility] [id number] Univers 13:57:15 23:59:00 SENDIL ity [facility] 2021-08-17 2021-08-17 Outpatient R BETHANY [facility] [id number] Univers 13:00:00 13:00:00 [facility] 2021-08-14 2021-08-14 Outpatient R BETHANY [facility] [id number] Univers 11:00:00 11:00:00 [facility] 2021-08-11 2021-08-11 [facility]phone [facility] [id number] Univers 00:00:00 00:00:00 Manuel VILLANUEVA [id number] [id number] [id number] [address] 2021-05-29 2021-05-29 Telephone Bethany [facility] [id number] Univers 00:00:00 00:00:00 Manuel VILLANUEVA [id number] [id number] [phone] [address] 2021-05-25 2021-05-25 Sociology Instructor 2, Adc Lab [facility] [id number] Univers 14:15:00 14:30:00 Visit Manuel Sims [id number] 10 ity of [facility] [id number] [phone] Tx dical NAL 353 [facility] 2021-05-25 2021-05-25 [facility] [id number] Univers 13:30:00 13:51:[address] [facility] 2021-05-25 2021-05-25 Office [facility] [id number] Univers 13:30:00 13:51:57 Visit Sendruby VILLANUEVA [id number] [id number] [phone] Tx dical NAL 059 [facility] 2021-05-25 2021-05-25 Orders Doctor ALLI [id number] Univers 00:00:00 00:00:00 Only Unassigned, MICHELLE [id number] ity of [facility] [id number] Nicholas as [phone] [address] 2021-05-18 2021-05-18 Outpatient [facility] [id number] [facility] 13:55:58 14:53:23 TAMMY Og ege of Medicin e 2021-04-24 2021-04-24 [facility] [id number] Univers 13:00:00 13:00:00 SENDIL ity [facility] 2021-01-26 2021-01-26 Outpatient [facility] [id number] [facility] 13:14:06 14:44:44 TAMMY Og ege of Medicin e 2020-10-21 2020-10-21 Office Community [facility] 1.2.840.114 [id number] Univers 09:16:45 10:28:42 Visit Manuel Villanueva 350.1.13.10 [place] [phone] [place] dical nal 059 [facility] 2020-10-21 2020-10-21 Outpatient R BETHANY [facility] [id number] Univers 09:30:00 09:30:[address] [facility] 2020-10-18 2020-10-18 Orders Doctor ALLI 1.2.840.114 [id number] Univers 00:00:00 00:00:00 Only Unassigned, MICHELLE 350.1.13.10 ity of [place] [facility] 4.2.7.2.686 Nicholas as [phone] [address] 2020-09-20 2020-09-20 [facility] 1.2.840.114 [id number] Univers 00:00:00 00:00:00 Sendil Herman Villanueva 350.1.13.10 [place] [phone] [facility] 059 [facility] 2020-09-13 2020-09-13 Office Charles [facility] 1.2.840.114 [id number] [facility] 15:15:14 17:05:45 Visit Oumou JOSÉ 350.1.13.10 ity of [facility] [place] [phone] [address] 2020-09-13 2020-09-13 [facility] [id number] [facility] 15:30:00 15:30:00 [address] o f [facility] 2020-08-15 2020-08-15 Telephone [facility] 1.2.840.114 [id number] Univers 00:00:00 00:00:00 Oumou Villanueva 350.1.13.10 [place] [phone] [place] dicvalor health 205 [facility] 2020-08-04 2020-08-04 Telephone [facility] 1.2.840.114 [id number] Univers 00:00:00 00:00:00 Oumou Villanueva 350.1.13.10 [place] [phone] Me dical nal 188 [facility] 2020-08-01 2020-08-01 [facility] [id number] Univers 00:00:00 00:00:[address] [facility] 2020-07-19 2020-07-19 [facility] [id number] Univers 10:30:00 10:30:[address] [facility] 2020-07-07 2020-07-07 Orders Doctor ALLI 1.2.840.114 [id number] Univers 00:00:00 00:00:00 Only Unassigned, MICHELLE 350.1.13.10 ity of [facility] 4.2.7.2.686 [place] as [phone] [address] 2020-06-24 2020-06-24 [facility] 1.2.840.114 [id number] [facility] 09:59:50 11:38:21 Visit Oumou Villanueva 350.1.13.10 [place] [phone] [place] dical nal 205 [facility] 2020-06-24 2020-06-24 [facility] [id number] Univers 10:15:00 10:15:[address] [facility] 2020-06-17 2020-06-17 [facility] 1.2.840.114 [id number] Univers 10:05:41 11:43:48 Visit Manuel Villanueva 350.1.13.10 it[place] [phone] [place] dical nal 059 [facility] 2020-06-17 2020-06-17 [facility] 1.2.840.114 [id number] Univers 10:05:41 11:43:48 Visit Manuel Villanueva 350.1.13.10 it[place] [phone] [place] dical nal 059 [facility] 2020-06-17 2020-06-17 Outpatient R BETHANY [facility] [id number] Univers 10:30:00 10:30:00 SENDIL ittrinidad [facility] 2020-05-24 2020-05-24 Outpatient R BETHANY [facility] [id number] Univers 14:00:00 14:00:00 SENDIL ittrinidad [facility] 2020-05-23 2020-05-23 [facility]phone [facility] 1.2.656.355 [id number] Univers 00:00:00 00:00:00 Sendil Herman Villanueva 350.1.13.10 [place] [phone] Tx dical [facility] 2020-05-23 2020-05-23 Orders Doctor ALLI 1.2.840.114 [id number] Univers 00:00:00 00:00:00 Only Unassigned, MICHELLE 350.1.13.10 ity of [place] [facility] 4.2.7.2.686 Nicholas as [phone] [address] 2020-05-23 2020-05-23 [facility]phone [facility] 1.2.513.119 [id number] 00:00:00 00:00:00 Sendruby Villanueva 350.1.13.10 [place] 4.2.7.2.686 Professio [phone] [address] 2020-05-17 2020-05-17 Patient Good SCBLANCA 1.2.840.114 [id number] Univers 00:00:00 00:00:00 Outreach Mateo PRIMARY 350.1.13.10 i ty of [facility] [place] [phone] [place] dical [address] [place] [address] 2020-05-16 2020-05-16 Outpatient R BETHANY [facility] [id number] Univers 08:00:00 08:00:00 SENDIL shawanda [facility] 2020-05-04 2020-05-04 [facility] 1.2.840.114 [id number] Univers 10:22:44 11:41:29 Visit Sendil Herman Villanueva 350.1.13.10 [place] [phone] Tx dical [facility] 059 [facility] 2020-05-04 2020-05-04 Outpatient R SIMS, [facility] [id number] Univers 10:30:00 10:30:[address] [facility] 2020-05-04 2020-05-04 Orders Doctor CARSON 1.2.840.114 [id number] [facility] 00:00:00 00:00:00 Only Unassigned, MICHELLE 350.1.13.10 ity of [facility] 4.2.7.2.686 [place] as [phone] [address] 2020-04-15 2020-04-15 Outpatient [facility] [id number] [place] 00:00:00 00:00:[address] 2020-03-25 2020-03-25 Outpatient [facility] [id number] [place] 00:00:00 00:00:[address] 2019-06-11 2019-06-11 Ambulatory nullFlavo MNA [id number] Memoria 15:15:00 15:15:00 Pre-Reg r Neurology 06 l Eola Crandall 2019-06-11 2019-06-11 Ambulatory nullFlavo MNA [id number] [facility] 15:15:00 15:15:00 Pre-Reg r Neurology 07 l Eola Crandall 2019-06-11 2019-06-11 Ambulatory nullFlavo MNA [id number] [facility] 15:15:00 15:15:00 Pre-Reg r Neurology 07 l Eola Crandall 2019-06-11 2019-06-11 Ambulatory nullFlavo MNA [id number] [facility] 15:15:00 15:15:00 Pre-Reg r Neurology 06 l Eola Crandall 2019-06-11 2019-06-11 Outpatient MHIE MHIE [id number] [facility] 10:15:00 10:15:00 06 l Crandall 2019-06-11 2019-06-11 Outpatient MHIE MHIE [id number] [facility] 10:15:00 10:15:00 07 l Rick 2019-06-11 2019-06-11 Outpatient АЛЕКСАНДР HoffmanMISCHER MHMISCHER [id number] 10:15:00 10:15:00 Josesito 06 Jabier 2019-06-11 2019-06-11 Outpatient АЛЕКСАНДР HoffmanMISCHER MHMISCHER [id number] 10:15:00 10:15:00 Josesito 07 Jabier 2019-03-26 2019-03-26 Office Tammy Muñoz BCM 1.2.8 40.114 [id number] 14:42:21 15:17:21 Visit Field-Hrt, Visual AMBULATOR 350.1.13.2 1 Y 0.2.7.2.686 [phone] [facility][note 3] 2019-03-26 2019-03-26 Office Tammy Muñoz BCM 1.2.8 40.114 [id number] [facility] 14:42:21 15:17:21 Visit Field-Hrt, Visual AMBULATOR 350.1.13.2 1 College Y 0.2.7.2.686 of [phone] [facility] 300 e 2019-02-12 2019-02-13 Outpatient nullFlavo MNA [id number] Memoria 16:45:00 05:59:59 r Neurology 05 l Gely Rick 2019-02-12 2019-02-13 Outpatient nullFlavo MNA [id number] [facility] 16:45:00 05:59:59 r Neurology 05 l Gely Rick 2019-02-12 2019-02-12 Outpatient DONAVON HoffmanSCHER MHMISCHER [id number] 10:45:00 23:59:59 Josesito Aurora Jabier 2019-02-12 2019-02-12 Outpatient MHIE MHIE [id number] [facility] 10:45:00 10:45:00 05 tiffany Rick 2018-11-04 2018-11-04 Outpatient MHIE MHIE [id number] [facility] 10:30:00 10:30:00 04 tiffany Cabrera 2018-11-04 2018-11-04 Outpatient MHIE MHIE [id number] [facility] 10:30:00 10:30:00 04 tiffany Cabrera 2018-10-29 2018-10-29 Office VU Davis 1.2.840.114 [id number] 14:17:38 16:26:39 Visit Stephany S. AMBULATOR 350.1.13.21 Y 0.2.7.2.686 [phone] 300 2018-10-29 2018-10-29 Office VU Davis 1.2.840.114 [id number] [facility] 14:17:38 16:26:39 Visit Stephany S. AMBULATOR 350.1.13.21 College Y 0.2.7.2.686 of [id number] [facility] 300 e 2018-07-01 2018-07-02 Outpatient nullFlavo MNA [id number] Mem[facility] 15:30:00 04:59:59 r Neurology 03 l Gely Cabrera 2018-07-01 2018-07-02 Outpatient nullFlavo MNA [id number] [facility] 15:30:00 04:59:59 r Neurology 03 tiffany Cabrera 2018-07-01 2018-07-01 Outpatient АЛЕКСАНДР [id number] 10:30:00 23:59:59 Josesito 03 Jabier 2018-07-01 2018-07-01 Outpatient MHIE MHIE [id number] [facility] 10:30:00 10:30:00 03 tiffany Cabrera 2018-05-20 2018-05-20 Outpatient MHIE MHIE [id number] [facility] 09:30:00 09:30:00 02 tiffany Rick 2018-05-20 2018-05-20 Outpatient MHIE MHIE [id number] [facility]oria 09:30:00 09:30:00 02 tiffany Cabrera 2018-04-07 2018-04-07 Outpatient MHIE MHIE [id number] Memoria 08:15:00 08:15:00 01 tiffany Cabrera 2018-04-07 2018-04-07 Outpatient MHIE MHIE [id number] [facility]oria 08:15:00 08:15:00 01 tiffany Cabrera 2018-04-01 2018-04-02 Outpatient nullFlavo MNA [id number] [facility] 17:15:00 05:59:59 r Neurology 00 l Gely Cabrera 2018-04-01 2018-04-02 Outpatient nullFlavo MNA [id number] [facility] 17:15:00 05:59:59 r Neurology 00 l Gely Cabrera 2018-04-01 2018-04-01 Outpatient KENNY Hoffman [id number] 11:15:00 23:59:59 Josesito 00 Jabier 2018-04-01 2018-04-01 Outpatient SWETA SOL [id number] [place] 11:15:00 11:15:00 00 l Rick Results Test Description Test Time Test Comments Results Result Comments Source TROPONIN I 2021-12-20 16:26:15 Test Item Value Reference Range Interpretation Comme nts TROPONIN I (test code = 0.005 ng/mL See_Comment [Au tomated message] The [id number]) system which ge nerated this result tra nsmitted reference range : <=0.034. The reference r arpit was not used to int erpret this result as normal/abnormal . JABIER (test code = JABIER) Reference (Normal) Range (defined by the 99th percentile reference limit): <= 0.034 ng/mL Note: Cardiac troponin begins to rise 3-4 hours after the onset of ischemia. Repeat in 4-6 hours if the sample was drawn within 3-4 hours of the onset of the symptom and found normal. Diagnosis of myocardial injury is made with acute changes in cTn concentrations with at least one serial sample above the 99th percentile upper reference limit (URL), taken together with the patient's clinical presentation. Biotin has been reported to cause a negative bias, interpret results relative to patient's use of biotin. Lab Interpretation Normal (test code = 46437-9) [id number] 16:23:15 Test Item Value Reference Range Interpretation Comments NT-proBNP (test code 686 pg/mL See_Comment H [Autom ated = 7920829996) message] The system which generated this result transmitted reference range : <=450. The reference range was not used to interpret this result as normal/abnormal . JABIER (test code = JABIER) Biotin has been reported to cause a negative bias, interpret results relative to patient's use of biotin. Lab Interpretation Abnormal (test code = 95691-2) [facility] ([id number])2021-12-20 16:15:51 Test Item Value Reference Range Interpretation Comments NA (test code = 132 mmol/L 135-145 L 8950250489) K (test code = 5.4 mmol/L 3.5-5.0 H 0089521738) CL (test code = 98 mmol/L 98-108 2882102917) CO2 TOTAL (test code = 27 mmol/L 23-31 9099885185) AGAP (test code = 2-16 9919950283) BUN (test code = 33 mg/dL 7-23 H 8094159956) GLUCOSE (test code = 82 mg/dL 70-110 8122720711) CREATININE (test code = 0.92 mg/dL 0.50-1.04 9511107862) TOTAL BILI (test code = 0.7 mg/dL 0.1-1.9 5088853137) CALCIUM (test code = 9.2 mg/dL 8.6-10.6 6928937581) T PROTEIN (test code = 7.2 g/dL 6.3-8.2 9294428396) ALBUMIN (test code = 4.5 g/dL 3.5-5.0 5128240318) ALK PHOS (test code = 45 U/L 34-122 2233945795) ALTv (test code = 28 U/L 5-35 1742-6) AST(SGOT) (test code = 49 U/L 13-40 H 5901339736) eGFR (test code = mL/min/1.73m2 7781023549) JABIER (test code = JABIER) Association of Glomerular Filtration Rate (GFR) and Staging of Kidney Disease* + --+ --+ ------+| GFR (mL/min/1.73 m2) ?| With Kidney Damage ?| ?Without Kidney Damage+ --------+ --------+ +| ?>90 ?| ?Stage one ?| ? Normal ?+ ---+ ---+ -------+| ?60-89 ?| ?Stage two ?| ? Decreased GFR ? + --+ --+ ------+| ?30-59 ?| ?Stage three ?| ? Stage three ? + --+ --+ ------+| ?15-29 ?| ?Stage four ? | ? Stage four ?+ ---+ ---+ -------+| ?<15 (or dialysis) ? ?| ?Stage five ? | ? Stage five ?+ ---+ ---+ -------+ *Each stage assumes the associated GFR level has been in effect for at least three months. ?Stages 1 to 5, with or without kidney disease, indicate chronic kidney disease. Notes: Determination of stages one and two (with eGFR >59mL/min/1.73 m2) requires estimation of kidney damage for at least three months as defined by structural or functional abnormalities of the kidney, manifested by either:Pathological abnormalities or Markers of kidney damage (including abnormalities in the composition of the blood or urine or abnormalities in imaging tests). Lab Interpretation Abnormal (test code = 94110-0) [facility] WITH [id number] 16:00:51 Test Item Value Reference Range Interpretation Comments WBC (test code = See_Comment [Automated 7290-2) message] The sy stem which generated this result transmitted reference range : 4.30 - 11.10 10*3/?L. The reference range was not used to interpret this result as normal/abnormal . RBC (test code = See_Comment L [Automated 789-8) message] The sy stem which generated this result transmitted reference range : 3.93 - 5.25 10*6/?L. The reference range was not used to interpret this result as normal/abnormal . HGB (test code = 10.9 g/dL 11.6-15.0 L 718-7) HCT (test code = 31.4 % 35.7-45.2 L 4544-3) MCV (test code = 90.5 fL 80.6-95.5 787-2) MCH (test code = 31.4 pg 25.9-32.8 785-6) MCHC (test code = 34.7 g/dL 31.6-35.1 786-4) RDW-SD (test code = 46.5 fL 39.0-49.9 39663-0) RDW-CV (test code = 14.0 % 12.0-15.5 788-0) PLT (test code = See_Comment [Automated 777-3) message] The sy stem which generated this result transmitted reference range : 166 - 358 10*3/ ?L. The reference r arpit was not used to interpret this result as normal/abnormal . MPV (test code = 11.2 fL 9.5-12.9 93909-8) NRBC/100 WBC (test See_Comment [Automat ed code = 2199493068) message] The system which generated this result transmitted reference range : 0.0 - 10.0 /100 WBCs. The refer ence range was not u sed to interpret th is result as normal/abnormal . NRBC x10^3 (test code See_Comment [Auto mated = 4668952361) message] The s ystem which generated this result transmitted reference range : 10*3/?L. The reference range was not used to interpret this result as normal/abnormal . GRAN MAT (NEUT) % 65.7 % (test code = 770-8) IMM GRAN % (test code 0.70 % = 7460121276) LYMPH % (test code = 18.9 % 736-9) MONO % (test code = 9.6 % 5905-5) EOS % (test code = 4.7 % 713-8) BASO % (test code = 0.4 % 706-2) GRAN MAT x10^3(ANC) 4.80 10*3/uL 1.88-7.09 (test code = 8074981843) IMM GRAN x10^3 (test 0.05 10*3/uL 0.00-0.06 code = 1965684424) LYMPH x10^3 (test code 1.38 10*3/uL 1.32-3.29 = 731-0) MONO x10^3 (test code 0.70 10*3/uL 0.33-0.92 = 742-7) EOS x10^3 (test code = 0.34 10*3/uL 0.03-0.39 711-2) BASO x10^3 (test code 0.03 10*3/uL 0.01-0.07 = 704-7) Lab Interpretation Abnormal (test code = 69807-8) [facility] GLAUCOMA - OU - BOTH [id number] 22:09:29HRT Interpretation1/20 OD OS Quality Poor Poor Interpretation Cup 0.59 Cup 0.12 Change Poor study, essentially stable Poor study, essentially stable [facility] - B[facility] [id number] 23:02:48 Right EyeProgression has worsened. Left EyeProgression has worsened.[facility]"
--- NOTE | 2022-01-18 11:33 | RAD REPORT ---
EXAM DESCRIPTION: RAD - Hip Right 2 View - 01/18/2022 10:51 am CLINICAL HISTORY: Right hip pain FINDINGS: No fracture or dislocation is seen. The bones are osteoporotic. If the patient's continues to have symptoms to suggest an occult fracture MRI would be recommended
--- NOTE | 2022-01-18 11:34 | RAD REPORT ---
EXAM DESCRIPTION: RAD - Knee Right 2 View - 01/18/2022 10:51 am CLINICAL HISTORY: Knee pain FINDINGS: Limited two view series No fracture or dislocation seen
--- NOTE | 2022-01-18 11:40 | ER ---
Nurse's Notes [facility] Name: Kalpana Guzmán Age: 81 yrs Sex: Female : 1940 Arrival Date: 01/18/2022 Time: 10:06 Bed 6 Private MD: Lenka Penn C Diagnosis: Pain in right hip;Pain in right knee;Fall on same level, unspecified Presentation: 01/18 10:19 Chief complaint: Patient states: Knocked over by her large dog. R leg pain for 5-6 ll1 days. Coronavirus screen: Vaccine status: Patient reports receiving the 2nd dose of the covid vaccine. Client denies travel out of the [place] in the last 14 days. At this time, the client does not indicate any symptoms associated with coronavirus-19. Ebola Screen: Patient denies travel to an Ebola-affected area in the 21 days before illness onset. Initial Sepsis Screen: Does the patient meet any 2 criteria? No. Patient's initial sepsis screen is negative. Does the patient have a suspected source of infection? Yes: Bone or joint infection. Risk Assessment: Do you want to hurt yourself or someone else? Patient reports no desire to harm self or others. Onset of symptoms was January 13, 2022. 10:19 Method Of Arrival: Ambulatory ll1 10:19 Acuity: KATIE 4 ll1 Historical: - Allergies: 10:18 Codeine; ll1 - PMHx: 10:18 Hypertensive disorder; Glaucoma; MAC; ll1 - PSHx: 10:18 None; ll1 - Immunization history:: Client reports receiving the 2nd dose of the Covid vaccine. - Social history:: Smoking status: Patient denies any tobacco usage or history of. Screenin:20 Abuse screen: Denies threats or abuse. Denies injuries from another. Nutritional jl7 screening: No deficits noted. Tuberculosis screening: No symptoms or risk factors identified. Fall Risk None identified. Assessment: 10:20 General: Appears in no apparent distress. uncomfortable, Behavior is calm, cooperative, jl7 appropriate for age. Pain: Complains of pain in right leg Pain currently is 2 out of 10 on a pain scale. at worst was 8 out of 10 on a pain scale. Neuro: Level of Consciousness is awake, alert, obeys commands, Oriented to person, place, time, situation. Cardiovascular: Patient's skin is warm and dry. Respiratory: Airway is patent Respiratory effort is even, unlabored, Respiratory pattern is regular, symmetrical. Derm: Skin is pink, warm \T\ dry. Musculoskeletal: Range of motion: intact in all extremities, Swelling absent. 11:35 Reassessment: Dr. Ulloa at bedside discussing results and POC. jl7 Vital Signs: 10:19 BP 163 / 54; Pulse 65; Resp 17; Temp 98.2; Pulse Ox 99% ; Weight 53.07 kg; Height 5 ft. ll1 4 in. (162.56 cm); Pain 3/10; 11:35 BP 150 / 57; Pulse 57; Resp 15; Pulse Ox 100% ; jl7 10:19 Body Mass Index 20.08 (53.07 kg, 162.56 cm) ll1 ED Course: 10:06 Patient arrived in ED. rg4 10:06 Lenka Penn MD is Private Physician. rg4 10:08 Hank Ulloa DO is Attending Physician. ms3 10:16 Sravani Whitfield RN is Primary Nurse. jl7 10:18 Arm band placed on Patient placed in an exam room, on a stretcher. ll1 10:20 Triage completed. ll1 10:20 Patient has correct armband on for positive identification. Placed in gown. Pulse ox jl7 on. NIBP on. Warm blanket given. 10:53 Hip Right 2 View XRAY In Process Unspecified. EDMS 10:53 Knee Right 2 View XRAY In Process Unspecified. EDMS 11:45 No provider procedures requiring assistance completed. Patient did not have IV access jl7 during this emergency room visit. Administered Medications: No medications were administered Medication: 11:45 VIS not applicable for this client. jl7 Outcome: 11:40 Discharge ordered by MD. ms3 11:45 Discharged to home ambulatory. jl7 11:45 Condition: stable 11:45 Discharge instructions given to patient, Instructed on discharge instructions, follow up and referral plans. Demonstrated understanding of instructions, follow-up care. 11:45 Patient left the ED. jl7 Signatures: Dispatcher [employer] EDLaina Mary 4 Sravani Whitfield RN RN jl7 Magda Painting RN RN ll1 Hank Ulloa DO DO ms3
--- NOTE | 2022-01-18 11:40 | EDPHYS ---
Physician Documentation [facility] Name: Kalpana Guzmán Age: 81 yrs Sex: Female : 1940 Arrival Date: 01/18/2022 Time: 10:06 Bed 6 Private MD: Lenka Penn C ED Physician Hank Ulloa HPI: 01/18 10:25 This 81 yrs old Female presents to ER via Ambulatory with complaints of Leg Pain. ms3 10:25 The patient presents with pain, that is acute. The complaints affect the right hip, ms3 right knee. Context: The problem was sustained at home, resulted from giving her pit bull medication and hitting her hip and knee 6 days ago, the patient can fully bear weight, the patient is able to ambulate, with moderate difficulty. Onset: The symptoms/episode began/occurred 6 day(s) ago. Modifying factors: The symptoms are alleviated by Gabapentin. Associated signs and symptoms: Pertinent negatives calf tenderness, fever, rash, swelling. Treatment prior to arrival includes: Gabapentin. Severity of symptoms: At their worst the symptoms were severe, in the emergency department the symptoms have improved, a " 2" out of "10". Historical: - Allergies: 10:18 Codeine; ll1 - PMHx: 10:18 Hypertensive disorder; Glaucoma; MAC; ll1 - PSHx: 10:18 None; ll1 - Immunization history:: Client reports receiving the 2nd dose of the Covid vaccine. - Social history:: Smoking status: Patient denies any tobacco usage or history of. ROS: 10:25 Constitutional: Negative for fever, and chills. Neck: Negative for injury, pain, and ms3 swelling, Cardiovascular: Negative for chest pain, and palpitations. Respiratory: Negative for shortness of breath, cough, wheezing, and pleuritic chest pain, Abdomen/GI: Negative for abdominal pain, nausea, vomiting, diarrhea, and constipation. 10:25 Skin: Negative for injury, rash, and discoloration. 10:25 MS/extremity: Positive for pain. 10:25 All other systems are negative. Exam: 10:25 Constitutional: This is a well developed, well nourished patient who is awake, alert, ms3 and in no acute distress. Head/Face: Normocephalic, atraumatic. Neck: Trachea midline, no cervical lymphadenopathy. Supple, full range of motion without nuchal rigidity, or vertebral point tenderness. No Meningismus. Chest/axilla: Normal chest wall appearance and motion. Nontender with no deformity. Cardiovascular: Regular rate and rhythm with a normal S1 and S2. No gallops, murmurs, or rubs. Normal PMI, no JVD. No pulse deficits. Respiratory: Lungs have equal breath sounds bilaterally, clear to auscultation and percussion. No rales, rhonchi or wheezes noted. No increased work of breathing, no retractions or nasal flaring. Abdomen/GI: Soft, non-tender, with normal bowel sounds. No distension or tympany. No guarding or rebound. No evidence of tenderness throughout. Skin: Warm, dry with normal turgor. Normal color with no rashes, no lesions, and no evidence of cellulitis. 10:25 Musculoskeletal/extremity: Extremities: noted in the right hip: pain, tenderness, noted in the right knee: pain, ROM: no acute changes, Circulation is intact in all extremities. Sensation intact. Joints: the right knee displays painful range of motion. Vital Signs: 10:19 BP 163 / 54; Pulse 65; Resp 17; Temp 98.2; Pulse Ox 99% ; Weight 53.07 kg; Height 5 ft. ll1 4 in. (162.56 cm); Pain 3/10; 11:35 BP 150 / 57; Pulse 57; Resp 15; Pulse Ox 100% ; jl7 10:19 Body Mass Index 20.08 (53.07 kg, 162.56 cm) ll1 MDM: 10:25 Patient medically screened. ms3 10:25 Differential diagnosis: closed fracture, contusion. ms3 11:41 Data reviewed: vital signs, nurses notes, radiologic studies, and as a result, I will ms3 discharge patient. Counseling: I had a detailed discussion with the patient and/or guardian regarding: the historical points, exam findings, and any diagnostic results supporting the discharge/admit diagnosis. ED course: Discussed x-ray results with patient. Patient request prescription for cane. Patient to follow-up with orthopedics in 2 to 3 days. Patient understands agrees with plan. All questions were answered. Return precautions discussed include worsening symptoms, or any other concerns. On reevaluation patient is ambulatory in Emergency Department, alert and oriented x4, in no apparent distress, nontoxic-appearing.. 01/18 10:25 Order name: Hip Right 2 View XRAY; Complete Time: 11:36 ms3 01/18 10:25 Order name: Knee Right 2 View XRAY; Complete Time: 11:36 ms3 Administered Medications: No medications were administered Disposition Summary: 01/18/22 11:40 Discharge Ordered Location: Home ms3 Condition: Stable ms3 Diagnosis - Pain in right hip ms3 - Pain in right knee ms3 - Fall on same level, unspecified ms3 Discharge Instructions: - Discharge Summary Sheet ms3 - Musculoskeletal Pain ms3 Forms: - Medication Reconciliation Form ms3 - Thank You Letter ms3 - Antibiotic Education ms3 - Prescription Opioid Use ms3 Prescriptions: CaneSignatures: Dispatcher [employer] Magda Gould, RN RN ll1 Hank Ulloa, DO ms3
[2022-01-18 11:50] VITALS: TEMP 98.2
[2022-01-18 11:52] VITALS: BP 150/57; O2SAT 100
== END 2022-01-18 11:45 | disposition home or self-care (01) ==
LOC: ER 10:02
DX: M25.551 Pain in right hip (principal); M25.561 Pain in right knee; W18.30XA Fall on same level, unspecified, initial encounter; I10 Essential (primary) hypertension; Z88.5 Allergy status to narcotic agent
CPT/HCPCS: 99283

== ENCOUNTER 2022-11-06 08:45 | Emergency (ER) | payer OTHER, BC ==
--- OUTSIDE RECORDS SUMMARY | 2022-11-06 08:57 | XMS REPORT | Continuity of Care Document ---
:1940 Author Organization [facility] t Address [address] [place] [id number] Care Team Providers Name Role Phone April Pennandrew Heath Primary Care Physician ROLANDO SMART Attending Clinician Unavailable FRIEDA AC Attending Clinician Unavailable MARTA LOFTON Attending Clinician Unavailable MARTA LOFTON Attending Clinician Unavailable Frieda Ac MD Attending Clinician [phone] OUMOU IGLESIAS Attending Clinician Unavailable Oumou Luther MD Attending Clinician Unavailable Edwin Mackay MD Attending Clinician Pob, [facility] Main Attending Clinician Unavailable Edwin Yadav MD Attending Clinician EDWIN YADAV Attending Clinician Unavailable , [facility] Attending Clinician Unavailable Doctor Unassigned, [place] Attending Clinician Unavailable Marta Lofton DO Attending Clinician Pcp-Lab Attending Clinician Unavailable MANUEL SIMS Attending Clinician Unavailable CATE NAZARIO Attending Clinician Unavailable DAMARIS GRUBER Attending Clinician Unavailable Damaris Gruber NP Attending Clinician FAYE MIRAMONTES Attending Clinician Unavailable Faye Miramontes MD Attending Clinician Bethany COREA, Manuel K.H. Attending Clinician 2, [facility] Attending Clinician Unavailable FELISA CORRIGAN Attending Clinician Unavailable Mateo Funk DO Attending Clinician Josesito Hoffman Attending Clinician FAYE MIRAMONTES Admitting Clinician Unavailable MANUEL SIMS Admitting Clinician Unavailable Payers Payer Name Policy Type Policy Number Effective Date Expiration Date S saba MEDICARE PART A \\T\\ [id number] 2003 B 00:00:00 [employer] TRADITIONAL [id number] 2014 00:00:00 Problems Condition Condition Condition Status Onset Resolution Last Treating Co mments Source Name Details Category Date Date Treatment Clinician Date Chronic Chronic Disease Active Univers rhinitis rhinitis 7-25 ity of 00:00: [place] [facility] 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 7-25 it y of a a 00:00: [place] [facility] 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 7-20 it y of ium avium [place] av[place] (MAC) (MAC) Branch infection infection Essential Essential Disease Active Uni vers hypertensi hypertensi 7-20 it y of on on 00:00: [place] [facility] Anxiety Anxiety Problem Active 2019-06-13 Me sanjiv (finding) (finding) 21:17:45 l Active [place] Problem 06/13/2019 [facility] Arthritis Arthritis Problem Active 2019-06-13 Memoria (disorder) (disorder) 21:17:45 l Active [place] Problem 06/13/2019 [facility] Bronchitis Bronchiti Problem Active 2019-06-13 Memoria (disorder) s 21:17:45 l (disorder) Robin n Active Problem 06/13/2019 [facility] Fatigue Fatigue Problem Active 2019-06-13 Me sanjiv (finding) (finding) 21:17:45 l Active [place] Problem 06/13/2019 [facility] Glaucoma Glaucoma Problem Active 2019-06-13 Memoria (disorder) (disorder) 21:17:45 l Active [place] Problem 06/13/2019 [facility] Hyperlipid Hyperlipi Problem [...] y of lower 21:17:45 l limb limb [place] (disorder) (disorder) Active Problem 06/13/2019 [facility] No known No known Disease Metho di active active st problems problems Hospit a l Allergies, Adverse Reactions, Alerts Allergy Allergy Status [...] of ICONES 00:00: [place] 00 Medical Branch ADHESIVE Allergy [facility] CODEINE Allergy Active [facility] SULFA Allergy Active N\\T\\V [facility] 00:[facility]: Medical ANTIBIOT 00 Center ICS) Adhesive Drug Active Other (See redness [facility] Sulfa Drug Active Nausea And [facility] (Sulfona [facility]ergy Vomiting [facility] 00:[facility]: Medical Antibiot 00 Center ics) Adhesive Propensi Active Rash Redness Metho di ty to [address] adverse 00:00: Hospita reaction 00 l s to drug Adhesive Drug Active Other (See redness [facility] Codeine Drug Active Other (See Flushing [facility]) [facility] Center Sulfa Drug Active Nausea And [facility] (Sulfona Allergy Vomiting [facility] 00:00: Medical Antibiot 00 Center ics) Sulfa Propensi Active Other Methodi (Sulfona ty to 617 reaction( st mide adverse 00:00: s): Hospita Antibiot reaction 00 Nausea l ics) s to And drug Vomiting CODEINE DRUG Active Anaphylaxis Univ ers INGREDI 6-18 ity of 00:00: [address] Branch Codeine Propensi Active Anaphylaxis Un cathy ty to 6-18 ity of adverse 00:00: [place] reaction 00 [facility] s Branch Codeine Propensi Active Dermatitis 2008-02 Face Met hodi Phosphat ty to 2-[address] adverse 00:00: Hospita reaction 00 l s to drug No Known No Known Active Memori a Medicati Medicati l on on Rick Allergellie Allergellie s s Social History Social Habit Start Date Stop Date Quantity Comments Source History SDOH [facility] Alcohol Frequency Medical Center History SDOH [facility] Alcohol Std Drinks Medica l Center History SDOH [facility] Alcohol Binge Medical [address] [facility] Gender identity [facility] Sexual orientation [facility] Hospital Exposure to 2022-06-15 2022-06-25 Not sure University of SARS-CoV-2 (event) 00:00:00 09:11:00 [facility] [place] Tobacco use and 2021-09-05 2021-09-05 Smokeless Universit y of exposure 00:00:00 00:00:00 tobacco non-user [facility] History of Social 2018-10-14 2018-10-[address] function 00:00:00 00:00:00 Hospital Social History 2018-04-01 2018-04-01 [facility] Sabina mujica 17:31:49 17:31:49 Alcohol intake 2014-12-29 2014-12-29 Current drinker RASHID Pepper 00:00:00 00:00:00 of [facility] (finding) Alcohol Comment 2014-12-28 2014-12-28 1 per month RASHID Loera 00:00:00 00:00:00 Medical Center Sex Ass[birth year] At [birth year] RASHID Nath kes 00:00:00 00:00:00 Medical Center Smoking Status Start Date Stop Date Source Never smoked tobacco [facility] Medications Ordered Filled Start Stop Current Ordering Indication Dosage Frequency Signature Comments Components Source Medication Medication Date Date Medication? Clinician (SIG) Name Name hyoscyamine 3- No .125mg Take 0.125 Univers 0.125 mg 8-17 08-17 mg by ity of tablet 14:07: 00:00 mouth. [place] 23 :00 [facility] hyoscyamine 2023- No .125mg Take 0.125 Univers 0.125 mg 8-17 08-17 mg by ity of tablet 14:07: 00:00 mouth. [place] 23 :00 [facility] hyoscyamine 2023- No .125mg Take 0.125 Univers 0.125 mg 8-17 08-17 mg by ity of tablet 14:07: 00:00 mouth. [place] 23 :00 [facility] hyoscyamine 0 2023- No .125mg Take 0.125 Univers 0.125 mg 8-17 08-17 mg by ity of tablet 14:07: 00:00 mouth. [place] 23 :00 [facility] hyoscyamine 2023- No .125mg Take 0.125 Univers 0.125 mg 8-17 08-17 mg by ity of tablet 14:07: 00:00 mouth. [place] 23 :00 [facility] Magnesium Yes Take by Unive rs (MAGNACAPS) 8-17 mouth. 2 ity of 100 mg Cap 13:29: capsules Nicholas as 22 twice a Medical day Branch nebulizer Yes Univers accessories 8-17 ity of (HYPERSONIQ 13:29: [place] NEBULIZER 22 Medical CARTRIDGE Branch MISC) metoprolol 2023-0 Yes 12.5mg Take 0.5 U nivers tartrate 25 8-17 tablets by it y of mg tablet 13:29: [place] 22 the Medical morning Branch and 0.5 tablets in the evening. Magnesium 0 Yes Take by Unive rs (MAGNACAPS) 8-17 mouth. 2 ity of 100 mg Cap 13:29: capsules [place] as 22 twice a Medical day Branch nebulizer 0 Yes Univers accessories 8-17 ity of (HYPERSONIQ 13:29: [place] NEBULIZER 22 Medical [place] [facility] [place] metoprolol 0 Yes 12.5mg Take 0.5 U nivers tartrate 25 8-17 tablets by it y of mg tablet 13:29: [place] 22 the Medical morning Branch and 0.5 tablets in the evening. Magnesium 2022-0 Yes Take by Unive rs (MAGNACAPS) 8-17 mouth. 2 ity of 100 mg Cap 13:29: capsules [place] as 22 twice a Medical day Branch nebulizer 0 Yes Univers accessories 8-17 ity of (HYPERSONIQ 13:29: [place] NEBULIZER 22 Medical CARTRIDGE [facility]) metoprolol 0 Yes 12.5mg Take 0.5 U nivers tartrate 25 8-17 tablets by it y of mg tablet 13:29: mouth in 22 the Medical morning Branch and 0.5 tablets in the evening. Magnesium 0 Yes Take by Unive rs (MAGNACAPS) 8-17 mouth. 2 ity of 100 mg Cap 13:29: capsules [place] as 22 twice a Medical day Branch nebulizer 0 Yes Univers accessories 8-17 ity of (HYPERSONIQ 13:29: [place] NEBULIZER 22 Medical CARTRIDGE [facility]) metoprolol 0 Yes 12.5mg Take 0.5 U nivers tartrate 25 8-17 tablets by it y of mg tablet 13:29: [place] 22 the Medical morning Branch and 0.5 tablets in the evening. Magnesium 0 Yes Take by Unive rs (MAGNACAPS) 8-17 mouth. 2 ity of 100 mg Cap 13:29: capsules [place] as 22 twice a Medical day Branch nebulizer 0 Yes Univers accessories 8-17 ity of (HYPERSONIQ 13:29: [place] NEBULIZER 22 Medical [place] Branch [facility] [place] metoprolol 2022-0 Yes 12.5mg Take 0.5 U nivers tartrate 25 8-17 tablets by it y of mg tablet 13:29: [place] 22 the Medical morning Branch and 0.5 tablets in the evening. Magnesium 2022-0 Yes Take by Unive rs (MAGNACAPS) 8-17 mouth. 2 ity of 100 mg Cap 13:29: capsules [place] as 22 twice a Medical day Branch nebulizer 0 Yes Univers accessories 8-17 ity of (HYPERSONIQ 13:29: [place] NEBULIZER 22 Medical [place] Branch [facility] [place] metoprolol 0 Yes 12.5mg Take 0.5 U nivers tartrate 25 8-17 tablets by it y of mg tablet 13:29: [place] 22 the Medical morning Branch and 0.5 tablets in the evening. Magnesium 2022-0 Yes Take by Unive rs (MAGNACAPS) 8-17 mouth. 2 ity of 100 mg Cap 13:29: capsules [place] as 22 twice a Medical day Branch nebulizer 0 Yes Univers accessories 8-17 ity of (HYPERSONIQ 13:29: [place] NEBULIZER 22 Medical CARTRIDGE [facility]) metoprolol 2022-0 Yes 12.5mg Take 0.5 U nivers tartrate 25 8-17 tablets by it y of mg tablet 13:29: [place] 22 the Medical morning Branch and 0.5 tablets in the evening. aspirin 81 2022-0 2022- No 81mg Take 81 mg Univers mg EC 10-11 by mouth ity of tablet 13:26: 00:00 daily. [place] 50 :00 [facility] Branch aspirin 81 3-0 2022- No 81mg Take 81 mg Univers mg EC 10-11 by mouth ity of tablet 13:26: 00:00 daily. [place] 50 :00 [facility] Branch aspirin 81 3-0 202- No 81mg Take 81 mg Univers mg EC 10-11 by mouth ity of tablet 13:26: 00:00 daily. [place] 50 :00 [facility] Branch aspirin 81 2022-0 2022- No 81mg Take 81 mg Univers mg EC 10-11 by mouth ity of tablet 13:26: 00:00 daily. [place] 50 :00 [facility] aspirin 81 2022-0 2023- No 81mg Take 81 mg Univers mg EC 8-17 08-17 by mouth ity of tablet 13:26: 00:00 daily. [place] 50 :00 [facility] hyoscyamine 2022-[id number] 1 Univers sulfate 8-17 tablet ity of (LEVSIN/SL) 00:00: [place] 0.125 mg 00 tongue Medical sublingual every 12 Branc h tablet (twelve) hours as needed for Other (abdominal spasms). hyoscyamine 2022-[id number] 1 Univers sulfate 8-17 tablet ity of (LEVSIN/SL) 00:00: under the [place] 0.125 mg 00 tongue Medical sublingual every 12 Branc h tablet (twelve) hours as needed for Other (abdominal spasms). hyoscyamine 2022-[id number] 1 Univers sulfate 8-17 tablet ity of (LEVSIN/SL) 00:00: under the [place] 0.125 mg 00 tongue Medical sublingual every 12 Branc h tablet (twelve) hours as needed for Other (abdominal spasms). hyoscyamine 2022-[id number] 1 Univers sulfate 8-17 tablet ity of (LEVSIN/SL) 00:00: under the [place] 0.125 mg 00 tongue Medical sublingual every 12 Branc h tablet (twelve) hours as needed for Other (abdominal spasms). hyoscyamine 2022-[id number] 1 Univers sulfate 8-17 tablet ity of (LEVSIN/SL) 00:00: under the [place] 0.125 mg 00 tongue Medical sublingual every 12 Branc h tablet (twelve) hours as needed for Other (abdominal spasms). immun glob 2022-0 Yes [id number] 8g inject 8 g Univers G,IgG,-pro- 8-03 under the ity of IgA 0-50 00:00: skin [place] (HIZENTRA) 00 weekly. Medica l 4 gram/20 Branch mL (20 %) Syrg immun glob 2022-0 Yes [id number] 8g inject 8 g Univers G,IgG,-pro- 8-03 under the ity of IgA 0-50 00:00: skin [place] [facility] 00 weekly. Medica l 4 gram/20 Branch mL (20 %) Syrg immun glob Yes [id number] 8g inject 8 g Univers G,IgG,-pro- 8-03 under the ity of IgA 0-50 00:00: skin [place] (MNZENTRA) 00 weekly. Medica l 4 gram/20 Branch mL (20 %) Syrg immun glob Yes [id number] 8g inject 8 g Univers G,IgG,-pro- 8-03 under the ity of IgA 0-50 00:00: skin [place] ([facility] 00 weekly. Medica l 4 gram/20 Branch mL (20 %) Syrg immun glob Yes [id number] 8g inject 8 g Univers G,IgG,-pro- 8-03 under the ity of IgA 0-50 00:00: skin [place] ([facility]) 00 weekly. Medica l 4 gram/20 Branch mL (20 %) Syrg immun glob Yes [id number] 8g inject 8 g Univers G,IgG,-pro- 8-03 under the ity of IgA 0-50 00:00: skin [place] ([facility] 00 weekly. Medica l 4 gram/20 Branch mL (20 %) Syrg fexofenadin 2022- No 60mg Take 60 mg Univers e 60 mg 7-25 07-25 by mouth ity of tablet 14:46: 00:00 daily. 1 09 :00 tablet Medical daily Branch fexofenadin 2022- No 60mg Take 60 mg Univers e 60 mg 7-25 07-25 by mouth ity of tablet 14:46: 00:00 daily. 1 : tablet Medical daily Branch fexofenadin 2022- No 60mg Take 60 mg Univers e 60 mg 7-25 07-25 by mouth ity of tablet 14:46: 00:00 daily. 1 09 :00 tablet Medical daily Branch fexofenadin 0 2022- No 60mg Take 60 mg Univers e 60 mg 7-25 07-25 by mouth ity of tablet 14:46: 00:00 daily. 1 [place] 09 :00 tablet Medical daily Branch metoprolol 2022-0 Yes 12.5mg Take 12.5 Univers tartrate 25 7-25 mg by ity of mg tablet 14:17: mouth in [place] [address] the Medical morning Branch and 12.5 mg in the evening. metoprolol 0 Yes 12.5mg Take 12.5 Univers tartrate 25 7-25 mg by ity of mg tablet 14:17: mouth in [place] [address] the [facility] morning [place] and 12.5 mg in the evening. metoprolol 0 Yes 12.5mg Take 12.5 Univers tartrate 25 7-25 mg by ity of mg tablet 14:17: mouth in [address] Medical morning Branch and 12.5 mg in the evening. metoprolol 0 Yes 12.5mg Take 12.5 Univers tartrate 25 7-25 mg by ity of mg tablet 14:17: mouth in [address] morning [place] and 12.5 mg in the evening. metoprolol 0 Yes 12.5mg Take 12.5 Univers tartrate 25 7-25 mg by ity of mg tablet 14:17: mouth in [address] morning [place] and 12.5 mg in the evening. metoprolol 0 Yes 12.5mg Take 12.5 Univers tartrate 25 7-25 mg by ity of mg tablet 14:17: mouth in [address] and 12.5 mg in the evening. metoprolol 0 Yes 12.5mg Take 12.5 Univers tartrate 25 7-25 mg by ity of mg tablet 14:17: mouth in [address] and 12.5 mg in the evening. azelastine Yes [id number] 2{spray Use 2 Univers 137 mcg 7-25 } Sprays in ity of (0.1 %) 00:00: each [place] nasal spray 00 nostril in [facility] the morning and 2 Sprays in the evening. Use in each nostril as directed fexofenadin Yes [id number] 180mg Take 1 Univers e 180 mg 7-25 tablet by ity of tablet 00:00: mouth in [place] 00 the morning. 1 Branch tablet daily immun glob 2023-0 Yes [id number] 8g inject 8 g Univers G,IgG,-pro- 7-25 under the ity of IgA 0-50 00:00: skin [place] ([facility] 00 weekly. Medica l 4 gram/20 Branch mL (20 %) Syrg azelastine Yes [id number] 2{spray Use 2 Univers 137 mcg 7-25 } Sprays in ity of (0.1 %) 00:00: each [place] nasal spray 00 nostril in [facility] the Branch morning and 2 Sprays in the evening. Use in each nostril as directed fexofenadin Yes [id number] 180mg Take 1 Univers e 180 mg 7-25 tablet by ity of tablet 00:00: mouth in [place] 00 the Medical morning. 1 Branch tablet daily immun glob Yes [id number] 8g inject 8 g Univers G,IgG,-pro- 7-25 under the ity of IgA 0-50 00:00: skin [place] ([facility]) 00 weekly. Medica l 4 gram/20 Branch mL (20 %) Syrg azelastine Yes [id number] 2{spray Use 2 Univers 137 mcg 7-25 } Sprays in ity of (0.1 %) 00:00: each [place] nasal spray 00 nostril in [facility] the [place] morning and 2 Sprays in the evening. Use in each nostril as directed fexofenadin Yes [id number] 180mg Take 1 Univers e 180 mg 7-25 tablet by ity of tablet 00:00: mouth in [place] the Medical morning. 1 Branch tablet daily immun glob 0 Yes [id number] 8g inject 8 g Univers G,IgG,-pro- 7-25 under the ity of IgA 0-50 00:00: skin [place] ([facility] 00 weekly. Medica l 4 gram/20 Branch mL (20 %) Syrg azelastine Yes [id number] 2{spray Use 2 Univers 137 mcg 7-25 } Sprays in ity of (0.1 %) 00:00: each [place] nasal spray 00 nostril in [facility] the Branch morning and 2 Sprays in the evening. Use in each nostril as directed fexofenadin Yes [id number] 180mg Take 1 Univers e 180 mg 7-25 tablet by ity of tablet 00:00: mouth in [place] 00 the Medical morning. 1 Branch tablet daily immun glob Yes [id number] 8g inject 8 g Univers G,IgG,-pro- 7-25 under the ity of IgA 0-50 00:00: skin [place] ([facility] 00 weekly. Medica l 4 gram/20 Branch mL (20 %) Syrg azelastine Yes [id number] 2{spray Use 2 Univers 137 mcg 7-25 } Sprays in ity of (0.1 %) 00:00: each [place] nasal spray 00 nostril in [facility] the morning and 2 Sprays in the evening. Use in each nostril as directed fexofenadin Yes [id number] 180mg Take 1 Univers e 180 mg 7-25 tablet by ity of tablet 00:00: mouth in [place] 00 the Medical morning. 1 Branch tablet daily immun glob Yes [id number] 8g inject 8 g Univers G,IgG,-pro- 7-25 under the ity of IgA 0-50 00:00: skin [place] ([facility]) 00 weekly. Medica l 4 gram/20 Branch mL (20 %) Syrg azelastine Yes [id number] 2{spray Use 2 Univers 137 mcg 7-25 } Sprays in ity of (0.1 %) 00:00: each [place] nasal spray 00 nostril in [facility] the morning and 2 Sprays in the evening. Use in each nostril as directed fexofenadin Yes [id number] 180mg Take 1 Univers e 180 mg 7-25 tablet by ity of tablet 00:00: mouth in [place] 00 the Medical morning. 1 Branch tablet daily immun glob Yes [id number] 8g inject 8 g Univers G,IgG,-pro- 7-25 under the ity of IgA 0-50 00:00: skin [place] (HIZENTRA) 00 weekly. Medica l 4 gram/20 Branch mL (20 %) Syrg azelastine Yes [id number] 2{spray Use 2 Univers 137 mcg 7-25 } Sprays in ity of (0.1 %) 00:00: each [place] nasal spray 00 nostril in [facility] the [place] morning and 2 Sprays in the evening. Use in each nostril as directed fexofenadin 2022-0 Yes [id number] 180mg Take 1 Univers e 180 mg 7-25 tablet by ity of tablet 00:00: mouth in [place] 00 the Medical morning. 1 Branch tablet daily azelastine 2022-0 Yes [id number] 2{spray Use 2 Univers 137 mcg 7-25 } Sprays in ity of (0.1 %) 00:00: each [place] nasal spray 00 nostril in [facility] morning and 2 Sprays in the evening. Use in each nostril as directed fexofenadin 2022-0 Yes [id number] 180mg Take 1 Univers e 180 mg 7-25 tablet by ity of tablet 00:00: mouth in [place] the Medical morning. 1 Branch tablet daily azelastine 2022-0 Yes [id number] 2{spray Use 2 Univers 137 mcg 7-25 } Sprays in ity of (0.1 %) 00:00: each [place] nasal spray 00 nostril in [facility] morning and 2 Sprays in the evening. Use in each nostril as directed fexofenadin 2022-0 Yes [id number] 180mg Take 1 Univers e 180 mg 7-25 tablet by ity of tablet 00:00: mouth in [place] the Medical morning. 1 Branch tablet daily azelastine 2022-0 Yes [id number] 2{spray Use 2 Univers 137 mcg 7-25 } Sprays in ity of (0.1 %) 00:00: each [place] nasal spray 00 nostril in [facility] the [place] morning and 2 Sprays in the evening. Use in each nostril as directed fexofenadin 2022-0 Yes [id number] 180mg Take 1 Univers e 180 mg 7-25 tablet by ity of tablet 00:00: mouth in [place] the Medical morning. 1 Branch tablet daily azelastine 2022-0 Yes [id number] 2{spray Use 2 Univers 137 mcg 7-25 } Sprays in ity of (0.1 %) 00:00: each [place] nasal spray 00 nostril in [facility] morning and 2 Sprays in the evening. Use in each nostril as directed fexofenadin Yes [id number] 180mg Take 1 Univers e 180 mg 7-25 tablet by ity of tablet 00:00: mouth in [place] 00 the Medical morning. 1 Branch tablet daily azelastine Yes [id number] 2{spray Use 2 Univers 137 mcg 7-25 } Sprays in ity of (0.1 %) 00:00: each [place] nasal spray 00 nostril in [facility] morning and 2 Sprays in the evening. Use in each nostril as directed fexofenadin Yes [id number] 180mg Take 1 Univers e 180 mg 7-25 tablet by ity of tablet 00:00: mouth in [place] the Medical morning. 1 Branch tablet daily azelastine Yes [id number] 2{spray Use 2 Univers 137 mcg 7-25 } Sprays in ity of (0.1 %) 00:00: each [place] nasal spray 00 nostril in [facility] morning and 2 Sprays in the evening. Use in each nostril as directed fexofenadin Yes [id number] 180mg Take 1 Univers e 180 mg 7-25 tablet by ity of tablet 00:00: mouth in [place] the morning. 1 Branch tablet daily azelastine Yes [id number] 2{spray Use 2 Univers 137 mcg 7-25 } Sprays in ity of (0.1 %) 00:00: each [place] nasal spray 00 nostril in [facility] morning and 2 Sprays in the evening. Use in each nostril as directed fexofenadin Yes [id number] 180mg Take 1 Univers e 180 mg 7-25 tablet by ity of tablet 00:00: mouth in [place] the Medical morning. 1 Branch tablet daily immun glob 2022- No [id number] 8g inject 8 g Univers G,IgG,-pro- 709-27 under the it y of IgA 0-50 00:00: 00:00 skin [place] (HIZENTRA) 00 :00 weekly. Medica l 4 gram/20 Branch mL (20 %) Syrg immun glob 2022- No [id number] 8g inject 8 g Univers G,IgG,-pro- 7- 08-03 under the it y of IgA 0-50 00:00: 00:00 skin [place] (HIZENTRA) 00 :00 weekly. Medica l 4 gram/20 Branch mL (20 %) Syrg immun glob 2022-0 2022- No [id number] 8g inject 8 g Univers G,IgG,-pro- 7- 08-03 under the it y of IgA 0-50 00:00: 00:00 skin [place] (HIZENTRA) 00 :00 weekly. Medica l 4 gram/20 Branch mL (20 %) Syrg azelastine 2022-0 Yes [id number] 2{spray Use 2 Univers 137 mcg 4-07 } Sprays in ity of (0.1 %) 00:00: each [place] nasal spray 00 nostril in [facility] the Branch morning and 2 Sprays in the evening. Use in each nostril as directed azelastine 2022-0 Yes [id number] 2{spray Use 2 Univers 137 mcg 4-07 } Sprays in ity of (0.1 %) 00:00: each [place] nasal spray 00 nostril in [facility] the Branch morning and 2 Sprays in the evening. Use in each nostril as directed azelastine 2022-0 Yes [id number] 2{spray Use 2 Univers 137 mcg 4-07 } Sprays in ity of (0.1 %) 00:00: each [place] nasal spray 00 nostril in [facility] the Branch morning and 2 Sprays in the evening. Use in each nostril as directed azelastine 2022-0 Yes [id number] 2{spray Use 2 Univers 137 mcg 4-07 } Sprays in ity of (0.1 %) 00:00: each [place] nasal spray 00 nostril in [facility] the Branch morning and 2 Sprays in the evening. Use in each nostril as directed azelastine 2022-0 Yes [id number] 2{spray Use 2 Univers 137 mcg 4-07 } Sprays in ity of (0.1 %) 00:00: each [place] nasal spray 00 nostril in [facility] the Branch morning and 2 Sprays in the evening. Use in each nostril as directed azelastine 2023-0 Yes [id number] 2{spray Use 2 Univers 137 mcg 4-07 } Sprays in ity of (0.1 %) 00:00: each [place] nasal spray 00 nostril in [facility] the Branch morning and 2 Sprays in the evening. Use in each nostril as directed azelastine 2023-0 Yes [id number] 2{spray Use 2 Univers 137 mcg 4-07 } Sprays in ity of (0.1 %) 00:00: each [place] nasal spray 00 nostril in [facility] the Branch morning and 2 Sprays in the evening. Use in each nostril as directed azelastine 2023-0 Yes [id number] 2{spray Use 2 Univers 137 mcg 4-07 } Sprays in ity of (0.1 %) 00:00: each [place] nasal spray 00 nostril in [facility] morning and 2 Sprays in the evening. Use in each nostril as directed azelastine 2023-0 Yes [id number] 2{spray Use 2 [facility] 137 mcg 4-07 } Sprays in ity of (0.1 %) 00:00: each [place] nasal spray 00 nostril in [facility] morning and 2 Sprays in the evening. Use in each nostril as directed azelastine 2023-0 2023- No [id number] 2{spray Use 2 [facility] 137 mcg 4-07 07-25 } Sprays in ity of (0.1 %) 00:00: 00:00 each [place] nasal spray 00 :00 nostril in [facility] morning and 2 Sprays in the evening. Use in each nostril as directed azelastine 2023-0 2023- No [id number] 2{spray Use 2 [facility] 137 mcg 4-07 07-25 } Sprays in ity of (0.1 %) 00:00: 00:00 each [place] nasal spray 00 :00 nostril in [facility] morning and 2 Sprays in the evening. Use in each nostril as directed azelastine 2023-0 2023- No [id number] 2{spray Use 2 [facility] 137 mcg 4-07 07-25 } Sprays in ity of (0.1 %) 00:00: 00:00 each [place] nasal spray 00 :00 nostril in [facility] morning and 2 Sprays in the evening. Use in each nostril as directed azelastine 2023-0 2023- No [id number] 2{spray Use 2 [facility] 137 mcg 4-07 07-25 } Sprays in ity of (0.1 %) 00:00: 00:00 each [place] nasal spray 00 :00 nostril in [facility] morning and 2 Sprays in the evening. Use in each nostril as directed azelastine 2023-0 Yes [id number] 2{spray Use 2 [facility] 137 mcg 3-28 } Sprays in ity of (0.1 %) 00:00: each [place] nasal spray 00 nostril in [facility] morning and 2 Sprays in the evening. Use in each nostril as directed azelastine 2023-0 Yes [id number] 2{spray Use 2 [facility] 137 mcg 3-28 } Sprays in ity of (0.1 %) 00:00: each [place] nasal spray 00 nostril in [facility] the [facility] morning and 2 Sprays in the evening. Use in each nostril as directed azelastine 2023-0 Yes [id number] 2{spray Use 2 [facility] 137 mcg 3-28 } Sprays in ity of (0.1 %) 00:00: each [place] nasal spray 00 nostril in [facility] morning and 2 Sprays in the evening. Use in each nostril as directed azelastine 2023-0 Yes [id number] 2{spray Use 2 [facility] 137 mcg 3-28 } Sprays in ity of (0.1 %) 00:00: each [place] nasal spray 00 nostril in [facility] morning and 2 Sprays in the evening. Use in each nostril as directed azelastine 2023-0 Yes [id number] 2{spray Use 2 [facility] 137 mcg 3-28 } Sprays in ity of (0.1 %) 00:00: each [place] nasal spray 00 nostril in [facility] morning and 2 Sprays in the evening. Use in each nostril as directed azelastine 2023-0 2023- No [id number] 2{spray Use 2 [facility] 137 mcg 3-28 04-07 } Sprays in ity of (0.1 %) 00:00: 00:00 each [place] nasal spray 00 :00 nostril in [facility] morning and 2 Sprays in the evening. Use in each nostril as directed azelastine 2022- No [id number] 2{spray Use 2 [facility] 137 mcg 3-28 04-07 } Sprays in ity of (0.1 %) 00:00: 00:00 each [place] nasal spray 00 :00 nostril in [facility] morning and 2 Sprays in the evening. Use in each nostril as directed benzonatate 2022-0 Yes [id number] 100mg Take 1 [facility] (TESSALON 3-21 capsule by ity of PERLES) 100 00:00: mouth [place] mg capsule 00 every 8 Medica l (eight) Branch hours as needed for Cough. benzonatate 2022-0 Yes [id number] 100mg Take 1 [facility] (TESSALON 3-21 capsule by ity of PERLES) 100 00:00: mouth [place] mg capsule 00 every 8 Medica l (eight) Branch hours as needed for Cough. benzonatate 0 Yes [id number] 100mg Take 1 [facility] (TESSALON 3-21 capsule by ity of PERLES) 100 00:00: mouth [place] mg capsule 00 every 8 Medica l (eight) Branch hours as needed for Cough. benzonatate 2022-0 Yes [id number] 100mg Take 1 [facility] (TESSALON 3-21 capsule by ity of PERLES) 100 00:00: mouth [place] mg capsule 00 every 8 Medica l (eight) Branch hours as needed for Cough. benzonatate 2022-0 Yes [id number] 100mg Take 1 [facility] (TESSALON 3-21 capsule by ity of PERLES) 100 00:00: mouth [place] mg capsule 00 every 8 Medica l (eight) Branch hours as needed for Cough. benzonatate 2022-0 Yes [id number] 100mg Take 1 [facility] (TESSALON 3-21 capsule by ity of PERLES) 100 00:00: mouth [place] mg capsule 00 every 8 Medica l (eight) Branch hours as needed for Cough. benzonatate 2023-0 Yes [id number] 100mg Take 1 [facility] (TESSALON 3-21 capsule by ity of PERLES) 100 00:00: mouth [place] mg capsule 00 every 8 Medica l (eight) Branch hours as needed for Cough. benzonatate 2022-0 Yes [id number] 100mg Take 1 [facility] (TESSALON 3-21 capsule by ity of PERLES) 100 00:00: mouth [place] mg capsule 00 every 8 Medica l (eight) Branch hours as needed for Cough. benzonatate 2022-0 Yes [id number] 100mg Take 1 [facility] (TESSALON 3-21 capsule by ity of PERLES) 100 00:00: mouth [place] mg capsule 00 every 8 Medica l (eight) Branch hours as needed for Cough. benzonatate 2022-0 Yes [id number] 100mg Take 1 [facility] (TESSALON 3-21 capsule by ity of PERLES) 100 00:00: mouth [place] mg capsule 00 every 8 Medica l (eight) Branch hours as needed for Cough. benzonatate 2022-0 Yes [id number] 100mg Take 1 [facility] (TESSALON 3-21 capsule by ity of PERLES) 100 00:00: mouth [place] mg capsule 00 every 8 Medica l (eight) Branch hours as needed for Cough. benzonatate 2022-0 Yes [id number] 100mg Take 1 [facility] (TESSALON 3-21 capsule by ity of PERLES) 100 00:00: mouth [place] mg capsule 00 every 8 Medica l (eight) Branch hours as needed for Cough. benzonatate 2022-0 Yes [id number] 100mg Take 1 [facility] (TESSALON 3-21 capsule by ity of PERLES) 100 00:00: mouth [place] mg capsule 00 every 8 Medica l (eight) Branch hours as needed for Cough. benzonatate 2022-0 Yes [id number] 100mg Take 1 [facility] (TESSALON 3-21 capsule by ity of PERLES) 100 00:00: mouth [place] mg capsule 00 every 8 Medica l (eight) Branch hours as needed for Cough. benzonatate 2022-0 Yes [id number] 100mg Take 1 [facility] (TESSALON 3-21 capsule by ity of PERLES) 100 00:00: mouth [place] mg capsule 00 every 8 Medica l (eight) Branch hours as needed for Cough. benzonatate 2023-0 Yes [id number] 100mg Take 1 [facility] (TESSALON 3-21 capsule by ity of PERLES) 100 00:00: mouth [place] mg capsule 00 every 8 Medica l (eight) Branch hours as needed for Cough. benzonatate 2023-0 Yes [id number] 100mg Take 1 [facility] (TESSALON 3-21 capsule by ity of PERLES) 100 00:00: mouth [place] mg capsule 00 every 8 Medica l (eight) Branch hours as needed for Cough. benzonatate 2023-0 Yes [id number] 100mg Take 1 [facility] (TESSALON 3-21 capsule by ity of PERLES) 100 00:00: mouth [place] mg capsule 00 every 8 Medica l (eight) Branch hours as needed for Cough. benzonatate 2023-0 Yes [id number] 100mg Take 1 [facility] (TESSALON 3-21 capsule by ity of PERLES) 100 00:00: mouth [place] mg capsule 00 every 8 Medica l (eight) Branch hours as needed for Cough. benzonatate 2023-0 Yes [id number] 100mg Take 1 [facility] (TESSALON 3-21 capsule by ity of PERLES) 100 00:00: mouth [place] mg capsule 00 every 8 Medica l (eight) Branch hours as needed for Cough. benzonatate 2023-0 Yes [id number] 100mg Take 1 [facility] (TESSALON 3-21 capsule by ity of PERLES) 100 00:00: mouth [place] mg capsule 00 every 8 Medica l (eight) Branch hours as needed for Cough. benzonatate 2023-0 Yes [id number] 100mg Take 1 [facility] (TESSALON 3-21 capsule by ity of PERLES) 100 00:00: mouth [place] mg capsule 00 every 8 Medica l (eight) Branch hours as needed for Cough. benzonatate 2023-0 Yes [id number] 100mg Take 1 [facility] (TESSALON 3-21 capsule by ity of PERLES) 100 00:00: mouth [place] mg capsule 00 every 8 Medica l (eight) Branch hours as needed for Cough. benzonatate 2023-0 Yes [id number] 100mg Take 1 [facility] (TESSALON 3-21 capsule by ity of PERLES) 100 00:00: mouth [place] mg capsule 00 every 8 Medica l (eight) Branch hours as needed for Cough. benzonatate 3-0 Yes [id number] 100mg Take 1 [facility] (TESSALON 3-21 capsule by ity of PERLES) 100 00:00: mouth [place] mg capsule 00 every 8 Medica l (eight) Branch hours as needed for Cough. benzonatate 2023-0 Yes [id number] 100mg Take 1 [facility] (TESSALON 3-21 capsule by ity of PERLES) 100 00:00: mouth [place] mg capsule 00 every 8 Medica l (eight) Branch hours as needed for Cough. benzonatate 3-0 Yes [id number] 100mg Take 1 [facility] (TESSALON 3-21 capsule by ity of PERLES) 100 00:00: mouth [place] mg capsule 00 every 8 Medica l (eight) Branch hours as needed for Cough. benzonatate 3-0 Yes [id number] 100mg Take 1 [facility] (TESSALON 3-21 capsule by ity of PERLES) 100 00:00: mouth [place] mg capsule 00 every 8 Medica l (eight) Branch hours as needed for Cough. benzonatate 2022-0 Yes [id number] 100mg Take 1 [facility] (TESSALON 3-21 capsule by ity of PERLES) 100 00:00: mouth [place] mg capsule 00 every 8 Medica l (eight) Branch hours as needed for Cough. benzonatate 3-0 Yes [id number] 100mg Take 1 [facility] (TESSALON 3-21 capsule by ity of PERLES) 100 00:00: mouth [place] mg capsule 00 every 8 Medica l (eight) Branch hours as needed for Cough. benzonatate 3-0 Yes [id number] 100mg Take 1 [facility] (TESSALON 3-21 capsule by ity of PERLES) 100 00:00: mouth [place] mg capsule 00 every 8 Medica l (eight) Branch hours as needed for Cough. benzonatate 3-0 Yes [id number] 100mg Take 1 [facility] (TESSALON 3-21 capsule by ity of PERLES) 100 00:00: mouth [place] mg capsule 00 every 8 Medica l (eight) Branch hours as needed for Cough. metoprolol 2021-02 Yes 12.5mg Take 12.5 [facility] tartrate 25 1-21 mg by ity of mg tablet 10:39: mouth in [facility] the Medical morning Branch and 12.5 mg in the evening. metoprolol 2021-02 Yes 12.5mg Take 12.5 [facility] tartrate 25 1-21 mg by ity of mg tablet 10:39: mouth in [facility] the Medical morning Branch and 12.5 mg in the evening. metoprolol 2021-02 Yes 12.5mg Take 12.5 [facility] tartrate 25 1-21 mg by ity of mg tablet 10:39: mouth in [facility] the Medical morning Branch and 12.5 mg in the evening. metoprolol 2021-02 Yes 12.5mg Take 12.5 [facility] tartrate 25 1-21 mg by ity of mg tablet 10:39: mouth in [place] [address] the Medical morning Branch and 12.5 mg in the evening. metoprolol 2021-02 Yes 12.5mg Take 12.5 [facility] tartrate 25 1-21 mg by ity of mg tablet 10:39: mouth in [place] [address] the Medical morning Branch and 12.5 mg in the evening. metoprolol 2021-02 Yes 12.5mg Take 12.5 [facility] tartrate 25 1-21 mg by ity of mg tablet 10:39: mouth in [place] [address] the Medical morning Branch and 12.5 mg in the evening. metoprolol 2021-02 Yes 12.5mg Take 12.5 [facility] tartrate 25 1-21 mg by ity of mg tablet 10:39: mouth in [place] [address] the Medical morning Branch and 12.5 mg in the evening. metoprolol 2021-02 Yes 12.5mg Take 12.5 [facility] tartrate 25 1-21 mg by ity of mg tablet 10:39: mouth in [facility] the Medical morning Branch and 12.5 mg in the evening. metoprolol 2021-02 Yes 12.5mg Take 12.5 [facility] tartrate 25 1-21 mg by ity of mg tablet 10:39: mouth in [facility] the Medical morning Branch and 12.5 mg in the evening. metoprolol 2021-02 Yes 12.5mg Take 12.5 [facility] tartrate 25 1-21 mg by ity of mg tablet 10:39: mouth in [facility] the Medical morning Branch and 12.5 mg in the evening. metoprolol 2021-02 Yes 12.5mg Take 12.5 [facility] tartrate 25 1-21 mg by [facility]y of mg tablet 10:39: [place] the [facility] morning [facility] and 12.5 mg in the evening. metoprolol 2021-02 Yes 12.5mg Take 12.5 [facility] tartrate 25 1-21 mg by ity of mg tablet 10:39: mouth in [facility] the Medical morning Branch and 12.5 mg in the evening. metoprolol 2021-02 Yes 12.5mg Take 12.5 [facility] tartrate 25 1-21 mg by [facility] of mg tablet 10:39: [place] the Medical morning Branch and 12.5 mg in the evening. metoprolol 2021-02 Yes 12.5mg Take 12.5 [facility] tartrate 25 1-21 mg by ity of mg tablet 10:39: mouth in [facility] the Medical morning Branch and 12.5 mg in the evening. metoprolol 2021-02 Yes 12.5mg Take 12.5 [facility] tartrate 25 1-21 mg by ity of mg tablet 10:39: mouth in [facility] the Medical morning Branch and 12.5 mg in the evening. metoprolol 2021-02 Yes 12.5mg Take 12.5 [facility] tartrate 25 1-21 mg by ity of mg tablet 10:39: mouth in [facility] the Medical morning Branch and 12.5 mg in the evening. metoprolol 2021-02 Yes 12.5mg Take 12.5 [facility] tartrate 25 1-21 mg by ity of mg tablet 10:39: mouth in [facility] the Medical morning Branch and 12.5 mg in the evening. metoprolol 2021-02 Yes 12.5mg Take 12.5 [facility] tartrate 25 1-21 mg by ity of mg tablet 10:39: mouth in [facility] the Medical morning Branch and 12.5 mg in the evening. metoprolol 2021-02 Yes 12.5mg Take 12.5 [facility] tartrate 25 1-21 mg by ity of mg tablet 10:39: mouth in [facility] the Medical morning Branch and 12.5 mg in the evening. metoprolol 2021-02 Yes 12.5mg Take 12.5 [facility] tartrate 25 1-21 mg by [facility] of mg tablet 10:39: [place] the Medical morning Branch and 12.5 mg in the evening. metoprolol 2021-02 Yes 12.5mg Take 12.5 [facility] tartrate 25 1-21 mg by [facility] of mg tablet 10:39: [place] the Medical morning Branch and 12.5 mg in the evening. doxycycline 2021-02 Yes [id number] 100mg Take 1 [facility] hyclate 100 0-27 capsule by it y of mg capsule 00:00: mouth in [place] the Medical morning Branch and 1 capsule in the evening. doxycycline 2021-02 Yes [id number] 100mg Take 1 [facility] hyclate 100 0-27 capsule by it y of mg capsule 00:00: mouth in [place] 00 the Medical morning Branch and 1 capsule in the evening. doxycycline 2021-02 Yes [id number] 100mg Take 1 [facility] hyclate 100 0-27 capsule by it y of mg capsule 00:00: mouth in [place] 00 the Medical morning Branch and 1 capsule in the evening. doxycycline 2021-02 Yes [id number] 100mg Take 1 [facility] hyclate 100 0-27 capsule by it y of mg capsule 00:00: mouth in [place] 00 the Medical morning Branch and 1 capsule in the evening. doxycycline 2021-02 Yes [id number] 100mg Take 1 [facility] hyclate 100 0-27 capsule by it y of mg capsule 00:00: mouth in [place] 00 the Medical morning Branch and 1 capsule in the evening. doxycycline 2021-02 Yes [id number] 100mg Take 1 [facility] hyclate 100 0-27 capsule by it y of mg capsule 00:00: mouth in [place] 00 the Medical morning Branch and 1 capsule in the evening. doxycycline 2021-02 Yes [id number] 100mg Take 1 [facility] hyclate 100 0-27 capsule by it y of mg capsule 00:00: mouth in [place] 00 the Medical morning Branch and 1 capsule in the evening. doxycycline 2021-02 Yes [id number] 100mg Take 1 [facility] hyclate 100 0-27 capsule by it y of mg capsule 00:00: mouth in [place] 00 the Medical morning Branch and 1 capsule in the evening. doxycycline 2021-02 Yes [id number] 100mg Take 1 [facility] hyclate 100 0-27 capsule by it y of mg capsule 00:00: mouth in [place] 00 the Medical morning Branch and 1 capsule in the evening. doxycycline 2021-02 Yes [id number] 100mg Take 1 [facility] hyclate 100 0-27 capsule by it y of mg capsule 00:00: mouth in [place] 00 the Medical morning Branch and 1 capsule in the evening. doxycycline 2021-02 Yes [id number] 100mg Take 1 [facility] hyclate 100 0-27 capsule by it y of mg capsule 00:00: mouth in [place] 00 the Medical morning Branch and 1 capsule in the evening. doxycycline 2021-02 Yes [id number] 100mg Take 1 [facility] hyclate 100 0-27 capsule by it y of mg capsule 00:00: mouth in [place] 00 the Medical morning Branch and 1 capsule in the evening. doxycycline 2021-02 Yes [id number] 100mg Take 1 [facility] hyclate 100 0-27 capsule by it y of mg capsule 00:00: mouth in [place] 00 the Medical morning Branch and 1 capsule in the evening. doxycycline 2021-02 Yes [id number] 100mg Take 1 [facility] hyclate 100 0-27 capsule by it y of mg capsule 00:00: mouth in [place] 00 the Medical morning Branch and 1 capsule in the evening. doxycycline 2021-02 Yes [id number] 100mg Take 1 [facility] hyclate 100 0-27 capsule by it y of mg capsule 00:00: mouth in [place] 00 the Medical morning Branch and 1 capsule in the evening. doxycycline 2021-02 Yes [id number] 100mg Take 1 [facility] hyclate 100 0-27 capsule by it y of mg capsule 00:00: mouth in [place] 00 the Medical morning Branch and 1 capsule in the evening. doxycycline 2021-02 Yes [id number] 100mg Take 1 [facility] hyclate 100 0-27 capsule by it y of mg capsule 00:00: mouth in [place] 00 the Medical morning Branch and 1 capsule in the evening. doxycycline 2021-02 Yes [id number] 100mg Take 1 [facility] hyclate 100 0-27 capsule by it y of mg capsule 00:00: mouth in [place] 00 the Medical morning Branch and 1 capsule in the evening. doxycycline 2021-02 Yes [id number] 100mg Take 1 [facility] hyclate 100 0-27 capsule by it y of mg capsule 00:00: mouth in [place] 00 the Medical morning Branch and 1 capsule in the evening. doxycycline 2021-02 Yes [id number] 100mg Take 1 [facility] hyclate 100 0-27 capsule by it y of mg capsule 00:00: mouth in [place] 00 the Medical morning Branch and 1 capsule in the evening. doxycycline 2021-02 Yes [id number] 100mg Take 1 [facility] hyclate 100 0-27 capsule by it y of mg capsule 00:00: mouth in [place] 00 the Medical morning Branch and 1 capsule in the evening. doxycycline 2021-02 Yes [id number] 100mg Take 1 [facility] hyclate 100 0-27 capsule by it y of mg capsule 00:00: mouth in [place] 00 the Medical morning Branch and 1 capsule in the evening. doxycycline 2021-02- No [id number] 100mg Take 1 [facility] hyclate 100 0-27 07-25 capsule by i ty of mg capsule 00:00: 00:00 mouth in [place] 00 :00 the Medical morning Branch and 1 capsule in the evening. doxycycline 2021-02- No [id number] 100mg Take 1 [facility] hyclate 100 0-27 07-25 capsule by i ty of mg capsule 00:00: 00:00 mouth in [place] 00 :00 the Medical morning Branch and 1 capsule in the evening. doxycycline 2021-02- No [id number] 100mg Take 1 [facility] hyclate 100 0-27 07-25 capsule by i ty of mg capsule 00:00: 00:00 mouth in [place] 00 :00 the Medical morning Branch and 1 capsule in the evening. doxycycline 2021-02- No [id number] 100mg Take 1 [facility] hyclate 100 0-27 07-25 capsule by i ty of mg capsule 00:00: 00:00 mouth in [place] 00 :00 the Medical morning Branch and 1 capsule in the evening. levoFLOXaci 2021-02- No 750mg 750 mg, U nivers n 0-26 10-26 Oral, ONCE ity of (LEVAQUIN) 17:45: 17:17 NOW, 1 [place] tablet 750 00 :00 dose, On Medic al mg Wed Branch 12/20/21 at 1245, SUMANTH
Re ason for Anti-Infec tive: Documented Infection< br>Documen arvin Infection Site: Respirator y
Durat ion of Therapy: 7 days cefTRIAXone 2022-1 2022- No 1000mg 1,000 mg, [facility] (ROCEPHIN) 0-26 10- IV ity of 1,000 mg in 17:00: 17:27 [place]gy[place], [place] NaCl 0.9% 00 :00 ONCE, 1 Medical (NS) 50 mL dose, On Branc h MINI-BAG 12/20/21 at 1200, Administer over 30 Minutes, 50 mL
Reas on for Anti-Infec tive: Documented Infection< br>Documen arvin Infection Site: Respirator y
Du ration of Therapy: 7 days iopamidol 2021-02- No [id number] 80mL 80 mL, U nivers (ISOVUE 0-26 10- Intravenou ity o f 370-500 mL) 17:00: 17:00 s, ONCE, 1 [place] injection 00 :00 dose, On Medica l 80 mL Wed Branch 12/20/21 at 1200, Routine levoFLOXaci 2021-02 Yes [id number] 750mg Take 1 [facility] n 0-26 tablet by ity of (LEVAQUIN) 00:00: mouth [place] 750 mg 00 every 24 Medical tablet (twenty-fo Branch ur) hours. benzonatate 2021-02 Yes [id number] 100mg Take 1 [facility] 100 mg 0-26 capsule by ity of capsule 00:00: mouth 3 [place] 00 (three) Medical times Branch daily as needed for Cough. levoFLOXaci 2021-02 Yes [id number] 750mg Take 1 [facility] n 0-26 tablet by ity of (LEVAQUIN) 00:00: mouth [place] 750 mg 00 every 24 Medical tablet (twenty-fo Branch ur) hours. benzonatate 2021-02 Yes [id number] 100mg Take 1 [facility] 100 mg 0-26 capsule by ity of capsule 00:00: mouth 3 [place] 00 (three) Medical times Branch daily as needed for Cough. levoFLOXaci 2021-02 Yes [id number] 750mg Take 1 [facility] n 0-26 tablet by ity of (LEVAQUIN) 00:00: mouth [place] 750 mg 00 every 24 Medical tablet (twenty-fo Branch ur) hours. benzonatate 2021-02 Yes [id number] 100mg Take 1 [facility] 100 mg 0-26 capsule by ity of capsule 00:00: mouth 3 [place] 00 (three) Medical times Branch daily as needed for Cough. levoFLOXaci 2021-02 Yes [id number] 750mg Take 1 [facility] n 0-26 tablet by ity of (LEVAQUIN) 00:00: mouth [place] 750 mg 00 every 24 Medical tablet (twenty-fo Branch ur) hours. benzonatate 2021-02 Yes [id number] 100mg Take 1 [facility] 100 mg 0-26 capsule by ity of capsule 00:00: mouth 3 00 (three) Medical times Branch daily as needed for Cough. levoFLOXaci 2021-02 Yes [id number] 750mg Take 1 [facility] n 0-26 tablet by ity of (LEVAQUIN) 00:00: mouth [place] 750 mg 00 every 24 Medical tablet (twenty-fo Branch ur) hours. benzonatate 2021-02 Yes [id number] 100mg Take 1 [facility] 100 mg 0-26 capsule by ity of capsule 00:00: mouth 3 (three) Medical times Branch daily as needed for Cough. levoFLOXaci 2021-02 Yes [id number] 750mg Take 1 [facility] n 0-26 tablet by ity of (LEVAQUIN) 00:00: mouth [place] 750 mg 00 every 24 Medical tablet (twenty-fo Branch ur) hours. benzonatate 2021-02 Yes [id number] 100mg Take 1 [facility] 100 mg 0-26 capsule by ity of capsule 00:00: mouth 3 (three) Medical times Branch daily as needed for Cough. levoFLOXaci 2021-02 Yes [id number] 750mg Take 1 [facility] n 0-26 tablet by ity of (LEVAQUIN) 00:00: mouth [place] 750 mg 00 every 24 Medical tablet (twenty-fo Branch ur) hours. benzonatate 2021-02 Yes [id number] 100mg Take 1 [facility] 100 mg 0-26 capsule by ity of capsule 00:00: mouth 3 (three) Medical times Branch daily as needed for Cough. levoFLOXaci 2021-02 Yes [id number] 750mg Take 1 [facility] n 0-26 tablet by ity of (LEVAQUIN) 00:00: mouth [place] 750 mg 00 every 24 Medical tablet (twenty-fo Branch ur) hours. benzonatate 2021-02 Yes [id number] 100mg Take 1 [facility] 100 mg 0-26 capsule by ity of capsule 00:00: mouth 3 (three) Medical times Branch daily as needed for Cough. levoFLOXaci 2021-02 Yes [id number] 750mg Take 1 [facility] n 0-26 tablet by ity of (LEVAQUIN) 00:00: mouth [place] 750 mg 00 every 24 Medical tablet (twenty-fo Branch ur) hours. benzonatate 2021-02 Yes [id number] 100mg Take 1 [facility] 100 mg 0-26 capsule by ity of capsule 00:00: mouth 3 [place] 00 (three) Medical times Branch daily as needed for Cough. levoFLOXaci 2021-02 Yes [id number] 750mg Take 1 [facility] n 0-26 tablet by ity of (LEVAQUIN) 00:00: mouth [place] 750 mg 00 every 24 Medical tablet (twenty-fo Branch ur) hours. benzonatate 2021-02 Yes [id number] 100mg Take 1 [facility] 100 mg 0-26 capsule by ity of capsule 00:00: mouth 3 [place] 00 (three) Medical times Branch daily as needed for Cough. levoFLOXaci 2021-02 Yes [id number] 750mg Take 1 [facility] n 0-26 tablet by ity of (LEVAQUIN) 00:00: mouth [place] 750 mg 00 every 24 Medical tablet (twenty-fo Branch ur) hours. benzonatate 2021-02 Yes [id number] 100mg Take 1 [facility] 100 mg 0-26 capsule by ity of capsule 00:00: mouth 3 [place] 00 (three) Medical times Branch daily as needed for Cough. levoFLOXaci 2021-02 Yes [id number] 750mg Take 1 [facility] n 0-26 tablet by ity of (LEVAQUIN) 00:00: mouth [place] 750 mg 00 every 24 Medical tablet (twenty-fo Branch ur) hours. benzonatate 2021-02 Yes [id number] 100mg Take 1 [facility] 100 mg 0-26 capsule by ity of capsule 00:00: mouth 3 [place] 00 (three) Medical times Branch daily as needed for Cough. levoFLOXaci 2021-02 Yes [id number] 750mg Take 1 [facility] n 0-26 tablet by ity of (LEVAQUIN) 00:00: mouth [place] 750 mg 00 every 24 Medical tablet (twenty-fo Branch ur) hours. benzonatate 2021-02 Yes [id number] 100mg Take 1 [facility] 100 mg 0-26 capsule by ity of capsule 00:00: mouth 3 [place] 00 (three) Medical times Branch daily as needed for Cough. levoFLOXaci 2021-02 Yes [id number] 750mg Take 1 [facility] n 0-26 tablet by ity of (LEVAQUIN) 00:00: mouth [place] 750 mg 00 every 24 Medical tablet (twenty-fo Branch ur) hours. benzonatate 2021-02 Yes [id number] 100mg Take 1 [facility] 100 mg 0-26 capsule by ity of capsule 00:00: mouth 3 [place] 00 (three) Medical times Branch daily as needed for Cough. levoFLOXaci 2021-02 Yes [id number] 750mg Take 1 [facility] n 0-26 tablet by ity of (LEVAQUIN) 00:00: mouth [place] 750 mg 00 every 24 Medical tablet (twenty-fo Branch ur) hours. benzonatate 2021-02 Yes [id number] 100mg Take 1 [facility] 100 mg 0-26 capsule by ity of capsule 00:00: mouth 3 [place] 00 (three) Medical times Branch daily as needed for Cough. levoFLOXaci 2021-02 Yes [id number] 750mg Take 1 [facility] n 0-26 tablet by ity of (LEVAQUIN) 00:00: mouth [place] 750 mg 00 every 24 Medical tablet (twenty-fo Branch ur) hours. benzonatate 2021-02 Yes [id number] 100mg Take 1 [facility] 100 mg 0-26 capsule by ity of capsule 00:00: mouth 3 [place] 00 (three) Medical times Branch daily as needed for Cough. levoFLOXaci 2021-02 Yes [id number] 750mg Take 1 [facility] n 0-26 tablet by ity of (LEVAQUIN) 00:00: mouth [place] 750 mg 00 every 24 Medical tablet (twenty-fo Branch ur) hours. benzonatate 2021-02 Yes [id number] 100mg Take 1 [facility] 100 mg 0-26 capsule by ity of capsule 00:00: mouth 3 [place] 00 (three) Medical times Branch daily as needed for Cough. levoFLOXaci 2021-02 Yes [id number] 750mg Take 1 [facility] n 0-26 tablet by ity of (LEVAQUIN) 00:00: mouth [place] 750 mg 00 every 24 Medical tablet (twenty-fo Branch ur) hours. benzonatate 2021-02 Yes [id number] 100mg Take 1 [facility] 100 mg 0-26 capsule by ity of capsule 00:00: mouth 3 [place] 00 (three) Medical times Branch daily as needed for Cough. levoFLOXaci 2021-02 Yes [id number] 750mg Take 1 [facility] n 0-26 tablet by ity of (LEVAQUIN) 00:00: mouth [place] 750 mg 00 every 24 Medical tablet (twenty-fo Branch ur) hours. benzonatate 2021-02 Yes [id number] 100mg Take 1 [facility] 100 mg 0-26 capsule by ity of capsule 00:00: mouth 3 [place] 00 (three) Medical times Branch daily as needed for Cough. levoFLOXaci 2021-02 Yes [id number] 750mg Take 1 [facility] n 0-26 tablet by ity of (LEVAQUIN) 00:00: mouth [place] 750 mg 00 every 24 Medical tablet (twenty-fo Branch ur) hours. benzonatate 2021-02 Yes [id number] 100mg Take 1 [facility] 100 mg 0-26 capsule by ity of capsule 00:00: mouth 3 [place] 00 (three) Medical times Branch daily as needed for Cough. levoFLOXaci 2021-02 Yes [id number] 750mg Take 1 [facility] n 0-26 tablet by ity of (LEVAQUIN) 00:00: mouth [place] 750 mg 00 every 24 Medical tablet (twenty-fo Branch ur) hours. benzonatate 2021-02 Yes [id number] 100mg Take 1 [facility] 100 mg 0-26 capsule by ity of capsule 00:00: mouth 3 [place] 00 (three) Medical times Branch daily as needed for Cough. levoFLOXaci 2021-02 Yes [id number] 750mg Take 1 [facility] n 0-26 tablet by ity of (LEVAQUIN) 00:00: mouth [place] 750 mg 00 every 24 Medical tablet (twenty-fo Branch ur) hours. benzonatate 2021-02 Yes [id number] 100mg Take 1 [facility] 100 mg 0-26 capsule by ity of capsule 00:00: mouth 3 [place] 00 (three) Medical times Branch daily as needed for Cough. levoFLOXaci 2021-02 Yes [id number] 750mg Take 1 [facility] n 0-26 tablet by ity of (LEVAQUIN) 00:00: mouth [place] 750 mg 00 every 24 Medical tablet (twenty-fo Branch ur) hours. benzonatate 2021-02 Yes [id number] 100mg Take 1 [facility] 100 mg 0-26 capsule by ity of capsule 00:00: mouth 3 [place] 00 (three) Medical times Branch daily as needed for Cough. benzonatate 2021-02 Yes [id number] 100mg Take 1 [facility] 100 mg 0-26 capsule by ity of capsule 00:00: mouth (three) Medical times Branch daily as needed for Cough. benzonatate 2021-02 Yes [id number] 100mg Take 1 [facility] 100 mg 0-26 capsule by ity of capsule 00:00: mouth (three) Medical times Branch daily as needed for Cough. benzonatate 2021-02 Yes [id number] 100mg Take 1 [facility] 100 mg 0-26 capsule by ity of capsule 00:00: mouth (three) Medical times Branch daily as needed for Cough. benzonatate 2021-02 Yes [id number] 100mg Take 1 [facility] 100 mg 0-26 capsule by ity of capsule 00:00: mouth (three) Medical times Branch daily as needed for Cough. benzonatate 2021-02 Yes [id number] 100mg Take 1 [facility] 100 mg 0-26 capsule by ity of capsule 00:00: mouth (three) Medical times Branch daily as needed for Cough. benzonatate 2021-02 Yes [id number] 100mg Take 1 [facility] 100 mg 0-26 capsule by ity of capsule 00:00: mouth (three) Medical times Branch daily as needed for Cough. benzonatate 2021-02 Yes [id number] 100mg Take 1 [facility] 100 mg 0-26 capsule by ity of capsule 00:00: mouth (three) Medical times Branch daily as needed for Cough. benzonatate 2021-02 Yes [id number] 100mg Take 1 [facility] 100 mg 0-26 capsule by ity of capsule 00:00: mouth (three) Medical times Branch daily as needed for Cough. benzonatate 2021-02 Yes [id number] 100mg Take 1 [facility] 100 mg 0-26 capsule by ity of capsule 00:00: mouth (three) Medical times Branch daily as needed for Cough. benzonatate 2021-02 Yes [id number] 100mg Take 1 [facility] 100 mg 0-26 capsule by ity of capsule 00:00: mouth (three) Medical times Branch daily as needed for Cough. benzonatate 2021-02 Yes [id number] 100mg Take 1 [facility] 100 mg 0-26 capsule by ity of capsule 00:00: mouth (three) Medical times Branch daily as needed for Cough. benzonatate 2021-02 Yes [id number] 100mg Take 1 [facility] 100 mg 0-26 capsule by ity of capsule 00:00: mouth 3 00 (three) Medical times Branch daily as needed for Cough. benzonatate 2021-02 Yes [id number] 100mg Take 1 [facility] 100 mg 0-26 capsule by ity of capsule 00:00: mouth 3 00 (three) Medical times Branch daily as needed for Cough. benzonatate 2021-02 Yes [id number] 100mg Take 1 [facility] 100 mg 0-26 capsule by ity of capsule 00:00: mouth 3 00 (three) Medical times Branch daily as needed for Cough. levoFLOXaci 2021-02- No [id number] 750mg Take 1 [facility] n 0-26 07-25 tablet by ity of (LEVAQUIN) 00:00: 00:00 mouth [place] 750 mg 00 :00 every 24 Medical tablet (twenty-fo Branch ur) hours. levoFLOXaci 2021-02- No [id number] 750mg Take 1 [facility] n 0-26 07-25 tablet by ity of (LEVAQUIN) 00:00: 00:00 mouth [place] 750 mg 00 :00 every 24 Medical tablet (twenty-fo Branch ur) hours. levoFLOXaci 2021-02- No [id number] 750mg Take 1 [facility] n 0-26 07-25 tablet by ity of (LEVAQUIN) 00:00: 00:00 mouth [place] 750 mg 00 :00 every 24 Medical tablet (twenty-fo Branch ur) hours. levoFLOXaci 2021-02- No [id number] 750mg Take 1 [facility] n 0-26 07-25 tablet by ity of (LEVAQUIN) 00:00: 00:00 mouth [place] 750 mg 00 :00 every 24 Medical tablet (twenty-fo Branch ur) hours. [place] P Yes Place in Uni vers OPHTHALMIC 7-12 each eye. ity of 14:33: Medical Branch Asc[facility]ate [facility] by [facility] Calcium 500 7-12 mouth. ity of mg Tab 14:33: Once a day Medical Branch Magnesium Yes Take by Unive rs (MAGNACAPS) 7-12 mouth. 2 ity of 100 mg Cap 14:33: capsules [place] 03 twice a Medical day Branch aspirin 81 0 Yes 81mg Take 81 mg U nivers mg EC 7-12 by mouth ity of tablet 14:33: daily. [place] [address] Medical Branch nebulizer 0 Yes [facility] accessories 7-12 ity of (HYPERSONIQ 14:33: [place] NE[facility]ULIZER Medical [facility]) [place] P [address] in Uni vers OPHTHALMIC 7-12 each eye. ity of 14:33: [address] Branch Ascorbate 0 Yes Take by Unive rs Calcium 500 7-12 mouth. ity of mg Tab 14:33: Once a day [address] Branch Magnesium 0 Yes Take by Unive rs (MAGNACAPS) 7-12 mouth. 2 ity of 100 mg Cap 14:33: capsules [place] 03 twice a Medical day Branch aspirin 81 0 Yes 81mg Take 81 mg U nivers mg EC 7-12 by mouth ity of tablet 14:33: daily. [address] Branch nebulizer 0 Yes [facility] accessories 7-12 ity of (HYPERSONIQ 14:33: [place] NE[facility]UL[facility]ER [address] [place] [address]) [place] P [address] in Uni vers OPHTHALMIC 7-12 each eye. ity of 14:33: [address] Ascorbate 0 Yes Take by Unive rs Calcium 500 7-12 mouth. ity of mg Tab 14:33: Once a day [address] Magnesium 0 Yes Take by Unive rs (MAGNACAPS) 7-12 mouth. 2 ity of 100 mg Cap 14:33: capsules [place] 03 twice a Medical day Branch aspirin 81 0 Yes 81mg Take 81 mg U nivers mg EC 7-12 by mouth ity of tablet 14:33: daily. [address] Branch nebulizer 0 Yes [facility] accessories 7-12 ity of (HYPERSONIQ 14:33: [place] [facility]UL[facility] Medical [facility]) [place] P 2021-[address] in Uni vers OPHTHALMIC 7-12 each eye. ity of 14:33: [address] Ascorbate 0 Yes Take by Unive rs Calcium 500 7-12 mouth. ity of mg Tab 14:33: Once a day [address] Branch Magnesium 2021-0 Yes Take by Unive rs (MAGNACAPS) 7-12 mouth. 2 ity of 100 mg Cap 14:33: capsules [place] 03 twice a Medical day Branch aspirin 81 2021-0 Yes 81mg Take 81 mg U nivers mg EC 7-12 by mouth ity of tablet 14:33: daily. [address] Branch nebulizer 2021-0 Yes [facility] accessories 7-12 ity of (HYPERSONIQ 14:33: [place] NEBULIZER Medical [facility]) [place] P 2021-[address] in Uni vers OPHTHALMIC 7-12 each eye. ity of 14:33: [address] Ascorbate 2021-0 Yes Take by Unive rs Calcium 500 7-12 mouth. ity of mg Tab 14:33: Once a day [address] Magnesium 2021-0 Yes Take by Unive rs (MAGNACAPS) 7-12 mouth. 2 ity of 100 mg Cap 14:33: capsules [place] 03 twice a Medical day Branch aspirin 81 2021-0 Yes 81mg Take 81 mg U nivers mg EC 7-12 by mouth ity of tablet 14:33: daily. [address] nebulizer 0 Yes [facility] accessories 7-12 ity of (HYPERSONIQ 14:33: [place] NEBULIZ[facility] Medical [facility]) [place] P 2021-[address] in Uni vers OPHTHALMIC 7-12 each eye. ity of 14:33: [address] Ascorbate 2021-0 Yes Take by Unive rs Calcium 500 7-12 mouth. ity of mg Tab 14:33: Once a day [address] [place] P 2021-[address] in Uni vers OPHTHALMIC 7-12 each eye. ity of 14:33: [address] Ascorbate 2021-0 Yes Take by Unive rs Calcium 500 7-12 mouth. ity of mg Tab 14:33: Once a day [address] [place] P 2021-[address] in Uni vers OPHTHALMIC 7-12 each eye. ity of 14:33: [address] Ascorbate 2021-0 Yes Take by Unive rs Calcium 500 7-12 mouth. ity of mg Tab 14:33: Once a day [address] [place] P 2021-[address] in Uni vers OPHTHALMIC 7-12 each eye. ity of 14:33: [address] Ascorbate 2022-0 Yes Take by Unive rs Calcium 500 7-12 mouth. ity of mg Tab 14:33: Once a day [address] [place] P Yes Place in Uni vers OPHTHALMIC 7-12 each eye. ity of 14:33: [address] Ascorbate Yes Take by Unive rs Calcium 500 7-12 mouth. ity of mg Tab 14:33: Once a day [address] [place] P Yes Place in Uni vers OPHTHALMIC 7-12 each eye. ity of 14:33: [address] Ascorbate Yes Take by Unive rs Calcium 500 7-12 mouth. ity of mg Tab 14:33: Once a day [address] [place] P Yes Place in Uni vers OPHTHALMIC 7-12 each eye. ity of 14:33: [address] Ascorbate Yes Take by Unive rs Calcium 500 7-12 mouth. ity of mg Tab 14:33: Once a day [address] fexofenadin Yes 60mg Take 60 mg Univers e 60 mg 712 by mouth ity of tablet 14:33: daily. 1 [place] [address] tablet Medical daily Branch AL[place] P Yes Place in Uni vers OPHTHALMIC 7-12 each eye. ity of 14:33: [address] Ascorbate Yes Take by [facility] rs Calcium 500 7-12 mouth. ity of mg Tab 14:33: Once a day [address] Magnesium Yes Take by Unive rs (MAGNACAPS) 7-12 mouth. 2 ity of 100 mg Cap 14:33: capsules [place] twice a Medical day Branch aspirin 81 0 Yes 81mg Take 81 mg U nivers mg EC 712 by mouth ity of tablet 14:33: daily. [address] nebulizer 0 Yes Univers accessories 7-12 ity of (HYPERSONIQ 14:33: [place] NEBULIZER [address] [place] [address] MISC) fexofenadin Yes 60mg Take 60 mg Univers e 60 mg 7-12 by mouth ity of tablet 14:33: daily. 1 [place] [address] tablet Medical daily Branch ALPHAG[place] P Yes Place in Uni vers OPHTHALMIC 7-12 each eye. ity of 14:33: [address] Ascorbate 0 Yes Take by Unive rs Calcium 500 7-12 mouth. ity of mg Tab 14:33: Once a day [place] [address] Medical Branch Magnesium 0 Yes Take by Unive rs (MAGNACAPS) 7-12 mouth. 2 ity of 100 mg Cap 14:33: capsules [place] 03 twice a Medical day Branch aspirin 81 0 Yes 81mg Take 81 mg U nivers mg EC 7-12 by mouth ity of tablet 14:33: daily. [address] Branch nebulizer Yes Univers accessories 7-12 ity of (HYPERSONIQ 14:33: [place] NEBULIZER Medical [facility]) fexofenadin 0 Yes 60mg Take 60 mg Univers e 60 mg 7-12 by mouth ity of tablet 14:33: daily. 1 [place] [address] tablet Medical daily Branch [place] P Yes Place in Uni vers OPHTHALMIC 7-12 each eye. ity of 14:33: [address] Ascorbate Yes Take by Unive rs Calcium 500 7-12 mouth. ity of mg Tab 14:33: Once a day [address] Magnesium Yes Take by Unive rs (MAGNACAPS) 7-12 mouth. 2 ity of 100 mg Cap 14:33: capsules [place] 03 twice a Medical day Branch aspirin 81 0 Yes 81mg Take 81 mg U nivers mg EC 7-12 by mouth ity of tablet 14:33: daily. [address] nebulizer Yes Univers accessories 7-12 ity of (HYPERSONIQ 14:33: [place] NEBULIZER Medical [facility]) fexofenadin 0 Yes 60mg Take 60 mg Univers e 60 mg 7-12 by mouth ity of tablet 14:33: daily. 1 [place] [address] tablet Medical daily Branch [place] P Yes Place in Uni vers OPHTHALMIC 7-12 each eye. ity of 14:33: [address] Ascorbate 0 Yes Take by Unive rs Calcium 500 7-12 mouth. ity of mg Tab 14:33: Once a day [place] [address] Medical Branch Magnesium 2021-0 Yes Take by Unive rs (MAGNACAPS) 7-12 mouth. 2 ity of 100 mg Cap 14:33: capsules [place] 03 twice a Medical day Branch aspirin 81 Yes 81mg Take 81 mg U nivers mg EC 7-12 by mouth ity of tablet 14:33: daily. [place] [address] Medical Branch nebulizer Yes Univers accessories 7-12 ity of (HYPERSONIQ 14:33: [place] NEBULIZER Medical [facility]) fexofenadin Yes 60mg Take 60 mg Univers e 60 mg 7-12 by mouth ity of tablet 14:33: daily. 1 [place] [address] tablet Medical daily Branch [place] P Yes Place in Uni vers OPHTHALMIC 7-12 each eye. ity of 14:33: [address] Ascorbate Yes Take by Unive rs Calcium 500 7-12 mouth. ity of mg Tab 14:33: Once a day [address] Magnesium Yes Take by Unive rs (MAGNACAPS) 7-12 mouth. 2 ity of 100 mg Cap 14:33: capsules [place] twice a Medical day Branch aspirin 81 Yes 81mg Take 81 mg U nivers mg EC 7-12 by mouth ity of tablet 14:33: daily. [address] nebulizer Yes Univers accessories 7-12 ity of (HYPERSONIQ 14:33: [place] NEBULIZER Medical [facility]) fexofenadin Yes 60mg Take 60 mg Univers e 60 mg 7-12 by mouth ity of tablet 14:33: daily. 1 [place] [address] tablet Medical daily Branch [place] P Yes Place in Uni vers OPHTHALMIC 7-12 each eye. ity of 14:33: [address] Ascorbate Yes Take by Unive rs Calcium 500 7-12 mouth. ity of mg Tab 14:33: Once a day [address] Branch Magnesium 0 Yes Take by Unive rs (MAGNACAPS) 7-12 mouth. 2 ity of 100 mg Cap 14:33: capsules [place] 03 twice a Medical day Branch aspirin 81 Yes 81mg Take 81 mg U nivers mg EC 7-12 by mouth ity of tablet 14:33: daily. [address] Branch nebulizer Yes Univers accessories 7-12 ity of (HYPERSONIQ 14:33: [place] NE[facility]ULIZER [address] [place] [address]) fexofenadin Yes 60mg Take 60 mg Univers e 60 mg 7-12 by mouth ity of tablet 14:33: daily. 1 [place] [address] tablet Medical daily Branch [place] P Yes Place in Uni vers OPHTHALMIC 7-12 each eye. ity of 14:33: [address] Branch Ascorbate Yes Take by Unive rs Calcium 500 7-12 mouth. ity of mg Tab 14:33: Once a day [address] Branch Magnesium 0 Yes Take by Unive rs (MAGNACAPS) 7-12 mouth. 2 ity of 100 mg Cap 14:33: capsules [place] 03 twice a Medical day Branch aspirin 81 Yes 81mg Take 81 mg U nivers mg EC 7-12 by mouth ity of tablet 14:33: daily. [address] nebulizer Yes Univers accessories 7-12 ity of (HYPERSONIQ 14:33: [place] NE[facility]UL[facility]ER [address] [place] [address]) fexofenadin Yes 60mg Take 60 mg Univers e 60 mg 7-12 by mouth ity of tablet 14:33: daily. 1 [place] [address] tablet Medical daily Branch [place] P Yes Place in Uni vers OPHTHALMIC 7-12 each eye. ity of 14:33: [address] Ascorbate Yes Take by Unive rs Calcium 500 7-12 mouth. ity of mg Tab 14:33: Once a day [address] Magnesium Yes Take by Unive rs (MAGNACAPS) 7-12 mouth. 2 ity of 100 mg Cap 14:33: capsules [place] 03 twice a Medical day Branch aspirin 81 0 Yes 81mg Take 81 mg U nivers mg EC 7-12 by mouth ity of tablet 14:33: daily. [address] nebulizer 0 Yes Univers accessories 7-12 ity of (HYPERSONIQ 14:33: [place] NEBUL[facility]ER [address] [place] [address]) fexofenadin 0 Yes 60mg Take 60 mg Univers e 60 mg 7-12 by mouth ity of tablet 14:33: daily. 1 [place] [address] tablet Medical daily Branch [place] P Yes Place in Uni vers OPHTHALMIC 7-12 each eye. ity of 14:33: [place] [address] Medical Branch Ascorbate 0 Yes Take by Unive rs Calcium 500 7-12 mouth. ity of mg Tab 14:33: Once a day [place] [address] Medical Branch Magnesium 0 Yes Take by Unive rs (MAGNACAPS) 7-12 mouth. 2 ity of 100 mg Cap 14:33: capsules [place] 03 twice a Medical day Branch aspirin 81 2021-0 Yes 81mg Take 81 mg U nivers mg EC 7-12 by mouth ity of tablet 14:33: daily. [address] Branch nebulizer 0 Yes Univers accessories 7-12 ity of (HYPERSONIQ 14:33: [place] NEBULIZER Medical [facility]) fexofenadin 0 Yes 60mg Take 60 mg Univers e 60 mg 7-12 by mouth ity of tablet 14:33: daily. 1 [place] [address] tablet Medical daily Branch [place] P [address] Uni vers OPHTHALMIC 7-12 each eye. ity of 14:33: [address] Ascorbate Yes Take by Unive rs Calcium 500 7-12 mouth. ity of mg Tab 14:33: Once a day [place] [address] Medical [place] Magnesium 0 Yes Take by Unive rs (MAGNACAPS) 7-12 mouth. 2 ity of 100 mg Cap 14:33: capsules [place] as 03 twice a Medical day Branch aspirin 81 2021-0 Yes 81mg Take 81 mg U nivers mg EC 7-12 by mouth ity of tablet 14:33: daily. [address] nebulizer 0 Yes Univers accessories 7-12 ity of (HYPERSONIQ 14:33: [place] NEBULIZER Medical [facility]) fexofenadin 0 Yes 60mg Take 60 mg Univers e 60 mg 7-12 by mouth ity of tablet 14:33: daily. 1 [place] [address] tablet Medical daily Branch [place] P [address] Uni vers OPHTHALMIC 7-12 each eye. ity of 14:33: [address] Ascorbate 0 Yes Take by Unive rs Calcium 500 7-12 mouth. ity of mg Tab 14:33: Once a day [place] [address] Medical Branch Magnesium 2021-0 Yes Take by Unive rs (MAGNACAPS) 7-12 mouth. 2 ity of 100 mg Cap 14:33: capsules [place] 03 twice a Medical day Branch aspirin 81 Yes 81mg Take 81 mg U nivers mg EC 7-12 by mouth ity of tablet 14:33: daily. [place] [address] Medical Branch nebulizer Yes Univers accessories 7-12 ity of (HYPERSONIQ 14:33: [place] NEBULIZER Medical [facility]) fexofenadin Yes 60mg Take 60 mg Univers e 60 mg 7-12 by mouth ity of tablet 14:33: daily. 1 [place] [address] tablet Medical daily Branch [place] P Yes Place in Uni vers OPHTHALMIC 7-12 each eye. ity of 14:33: [address] Ascorbate Yes Take by Unive rs Calcium 500 7-12 mouth. ity of mg Tab 14:33: Once a day [place] [address] Medical Branch Magnesium Yes Take by Unive rs (MAGNACAPS) 7-12 mouth. 2 ity of 100 mg Cap 14:33: capsules [place] twice a Medical day Branch aspirin 81 Yes 81mg Take 81 mg U nivers mg EC 7-12 by mouth ity of tablet 14:33: daily. [address] Branch nebulizer Yes Univers accessories 7-12 ity of (HYPERSONIQ 14:33: [place] NEBULIZER Medical [facility]) fexofenadin Yes 60mg Take 60 mg Univers e 60 mg 7-12 by mouth ity of tablet 14:33: daily. 1 [place] [address] tablet Medical daily Branch [place] P Yes Place in Uni vers OPHTHALMIC 7-12 each eye. ity of 14:33: [address] Branch Ascorbate 0 Yes Take by Unive rs Calcium 500 7-12 mouth. ity of mg Tab 14:33: Once a day [place] [address] Medical Branch Magnesium 0 Yes Take by Unive rs (MAGNACAPS) 7-12 mouth. 2 ity of 100 mg Cap 14:33: capsules [place] as 03 twice a Medical day Branch aspirin 81 0 Yes 81mg Take 81 mg U nivers mg EC 7-12 by mouth ity of tablet 14:33: daily. [place] [address] Medical Branch nebulizer Yes Univers accessories 7-12 ity of (HYPERSONIQ 14:33: [place] NEBULIZER [address] [place] [address]) fexofenadin Yes 60mg Take 60 mg Univers e 60 mg 7-12 by mouth ity of tablet 14:33: daily. 1 [place] [address] tablet Medical daily Branch [place] P Yes Place in Uni vers OPHTHALMIC 7-12 each eye. ity of 14:33: [address] Ascorbate Yes Take by Unive rs Calcium 500 7-12 mouth. ity of mg Tab 14:33: Once a day [address] Magnesium 0 Yes Take by Unive rs (MAGNACAPS) 7-12 mouth. 2 ity of 100 mg Cap 14:33: capsules [place] as 03 twice a Medical day Branch aspirin 81 Yes 81mg Take 81 mg U nivers mg EC 7-12 by mouth ity of tablet 14:33: daily. [address] nebulizer Yes Univers accessories 7-12 ity of (HYPERSONIQ 14:33: [place] NEBULIZER [address] [place] [address]) fexofenadin Yes 60mg Take 60 mg Univers e 60 mg 7-12 by mouth ity of tablet 14:33: daily. 1 [place] [address] tablet Medical daily Branch [facility] P Yes Place in Uni vers OPHTHALMIC 7-12 each eye. ity of 14:33: [address] Ascorbate Yes Take by Unive rs Calcium 500 7-12 mouth. ity of mg Tab 14:33: Once a day [address] Magnesium Yes Take by Unive rs (MAGNACAPS) 7-12 mouth. 2 ity of 100 mg Cap 14:33: capsules [place] as 03 twice a Medical day Branch aspirin 81 0 Yes 81mg Take 81 mg U nivers mg EC 7-12 by mouth ity of tablet 14:33: daily. [address] nebulizer Yes Univers accessories 7-12 ity of (HYPERSONIQ 14:33: [place] NEBULIZER [address] [place] [address]) fexofenadin 0 Yes 60mg Take 60 mg Univers e 60 mg 7-12 by mouth ity of tablet 14:33: daily. 1 [place] [address] tablet Medical daily Branch [facility] P Yes Place in Uni vers OPHTHALMIC 7-12 each eye. ity of 14:33: [place] [address] Medical Branch Ascorbate 0 Yes Take by Unive rs Calcium 500 7-12 mouth. ity of mg Tab 14:33: Once a day [place] [address] Medical Branch Magnesium 0 Yes Take by Unive rs (MAGNACAPS) 7-12 mouth. 2 ity of 100 mg Cap 14:33: capsules [place] as 03 twice a Medical day Branch aspirin 81 0 Yes 81mg Take 81 mg U nivers mg EC 7-12 by mouth ity of tablet 14:33: daily. [place] [address] Medical Branch nebulizer Yes Univers accessories 7-12 ity of (HYPERSONIQ 14:33: [place] NEBULIZER Medical [facility]) fexofenadin Yes 60mg Take 60 mg Univers e 60 mg 7-12 by mouth ity of tablet 14:33: daily. 1 [place] [address] tablet Medical daily Branch [place] P Yes Place in Uni vers OPHTHALMIC 7-12 each eye. ity of 14:33: [address] Ascorbate Yes Take by Un[facility] rs Calcium 500 7-12 mouth. ity of mg Tab 14:33: Once a day [place] [address] Medical Branch Magnesium Yes Take by Unive rs (MAGNACAPS) 7-12 mouth. 2 ity of 100 mg Cap 14:33: capsules [place] as 03 twice a Medical day Branch aspirin 81 0 Yes 81mg Take 81 mg U nivers mg EC 7-12 by mouth ity of tablet 14:33: daily. [address] nebulizer Yes Univers accessories 7-12 ity of (HYPERSONIQ 14:33: [place] NEBULIZER Medical [facility]) fexofenadin 0 Yes 60mg Take 60 mg Univers e 60 mg 7-12 by mouth ity of tablet 14:33: daily. 1 [place] [address] tablet Medical daily Branch [place] P Yes Place in Uni vers OPHTHALMIC 7-12 each eye. ity of 14:33: [address] Ascorbate Yes Take by [facility] rs Calcium 500 7-12 mouth. ity of mg Tab 14:33: Once a day [place] [address] Medical Branch Magnesium 0 Yes Take by Unive rs (MAGNACAPS) 7-12 mouth. 2 ity of 100 mg Cap 14:33: capsules [place] as 03 twice a Medical day Branch aspirin 81 Yes 81mg Take 81 mg U nivers mg EC 7-12 by mouth ity of tablet 14:33: daily. [place] [address] Medical Branch nebulizer Yes Univers accessories 7-12 ity of (HYPERSONIQ 14:33: [place] NEBULIZER [address] [place] [address] [facility]) fexofenadin Yes 60mg Take 60 mg Univers e 60 mg 7-12 by mouth ity of tablet 14:33: daily. 1 [place] [address] tablet Medical daily Branch [place] P Yes Place in Uni vers OPHTHALMIC 7-12 each eye. ity of 14:33: [address] Ascorbate Yes Take by [facility] rs Calcium 500 7-12 mouth. ity of mg Tab 14:33: Once a day [address] Magnesium Yes Take by Unive rs (MAGNACAPS) 7-12 mouth. 2 ity of 100 mg Cap 14:33: capsules [place] as twice a Medical day Branch aspirin 81 Yes 81mg Take 81 mg U nivers mg EC 7-12 by mouth ity of tablet 14:33: daily. [address] nebulizer Yes Univers accessories 7-12 ity of (HYPERSONIQ 14:33: [place] NE[facility] [address] [place] [address] [facility]) fexofenadin Yes 60mg Take 60 mg Univers e 60 mg 7-12 by mouth ity of tablet 14:33: daily. 1 [place] [address] tablet Medical daily Branch [place] P Yes Place in Uni vers OPHTHALMIC 7-12 each eye. ity of 14:33: [address] Ascorbate 0 Yes Take by Un[facility] rs Calcium 500 7-12 mouth. ity of mg Tab 14:33: Once a day [address] [address] [facility] Magnesium 0 Yes Take by [facility] rs (MAGNACAPS) 7-12 mouth. 2 ity of 100 mg Cap 14:33: capsules [place] as 03 twice a Medical day Branch aspirin 81 0 Yes 81mg Take 81 mg U nivers mg EC 7-12 by mouth ity of tablet 14:33: daily. [place] [address] Medical Branch nebulizer Yes [facility] accessories 7-12 ity of (HYPERSONIQ 14:33: [place] NEBULIZER Medical [facility]) fexofenadin Yes 60mg Take 60 mg Univers e 60 mg 7-12 by mouth ity of tablet 14:33: daily. 1 [place] [address] tablet Medical daily Branch ALPHAGAN P Yes Place in [facility] vers OPHTHALMIC 7-12 each eye. ity of 14:33: [address] Ascorbate Yes Take by Unive rs Calcium 500 7-12 mouth. ity of mg Tab 14:33: Once a day [place] [address] Medical Branch Magnesium Yes Take by Unive rs (MAGNACAPS) 7-12 mouth. 2 ity of 100 mg Cap 14:33: capsules [place] 03 twice a Medical day Branch aspirin 81 Yes 81mg Take 81 mg U nivers mg EC 7-12 by mouth ity of tablet 14:33: daily. [address] nebulizer Yes Univers accessories 7-12 ity of (HYPERSONIQ 14:33: [place] NEBULIZER [address] [place] [address]) fexofenadin Yes 60mg Take 60 mg Univers e 60 mg 7-12 by mouth ity of tablet 14:33: daily. 1 [place] [address] tablet Medical daily Branch ALPHAGAN P Yes Place in [place] [facility] OPHTHALMIC 7-12 each eye. ity of 14:33: [address] Ascorbate Yes Take by Unive rs Calcium 500 7-12 mouth. ity of mg Tab 14:33: Once a day [address] Magnesium Yes Take by Unive rs (MAGNACAPS) 7-12 mouth. 2 ity of 100 mg Cap 14:33: capsules [place] 03 twice a Medical day Branch aspirin 81 0 Yes 81mg Take 81 mg U nivers mg EC 7-12 by mouth ity of tablet 14:33: daily. [address] Branch nebulizer Yes [facility] accessories 7-12 ity of (HYPERSONIQ 14:33: [place] NEBULIZER Medical [facility]) fexofenadin 0 Yes 60mg Take 60 mg Univers e 60 mg 7-12 by mouth ity of tablet 14:33: daily. 1 [place] [address] tablet Medical daily Branch ALPHAGAN P 2022-[address] in Uni vers OPHTHALMIC 7-12 each eye. ity of 14:33: [address] Branch Ascorbate 0 Yes Take by Unive rs Calcium 500 7-12 mouth. ity of mg Tab 14:33: Once a day [place] [address] Medical Branch Magnesium 0 Yes Take by [facility] rs (MAGNACAPS) 7-12 mouth. 2 ity of 100 mg Cap 14:33: capsules [place] 03 twice a Medical day Branch aspirin 81 0 Yes 81mg Take 81 mg U nivers mg EC 7-12 by mouth ity of tablet 14:33: daily. [address] Branch nebulizer 0 Yes [facility] accessories 7-12 ity of (HYPERSONIQ 14:33: [place] NEBULIZER Medical [facility]) fexofenadin 0 Yes 60mg Take 60 mg Univers e 60 mg 7-12 by mouth ity of tablet 14:33: daily. 1 [place] [address] tablet Medical daily Branch ALPHAGAN P Yes Place in Uni vers OPHTHALMIC 7-12 each eye. ity of 14:33: [address] Ascorbate 0 Yes Take by Unive rs Calcium 500 7-12 mouth. ity of mg Tab 14:33: Once a day [address] Magnesium 0 Yes Take by [facility]ive rs (MAGNACAPS) 7-12 mouth. 2 ity of 100 mg Cap 14:33: capsules [place] as 03 twice a Medical day Branch aspirin 81 2021-0 Yes 81mg Take 81 mg U nivers mg EC 7-12 by mouth ity of tablet 14:33: daily. [address] nebulizer 0 Yes Univers accessories 7-12 ity of (HYPERSONIQ 14:33: [place] NEBULIZER Medical [facility]) fexofenadin 0 Yes 60mg Take 60 mg Univers e 60 mg 7-12 by mouth ity of tablet 14:33: daily. 1 [place] [address] tablet Medical daily Branch ALPHAGAN P [address] [facility] vers OPHTHALMIC 7-12 each eye. ity of 14:33: [address] Ascorbate 0 Yes Take by Unive rs Calcium 500 7-12 mouth. ity of mg Tab 14:33: Once a day [address] Branch Magnesium 2021-0 Yes Take by [facility]ive rs (MAGNACAPS) 7-12 mouth. 2 ity of 100 mg Cap 14:33: capsules [place] as 03 twice a Medical day Branch aspirin 81 0 Yes 81mg Take 81 mg U nivers mg EC 7-12 by mouth ity of tablet 14:33: daily. [place] [address] Medical Branch nebulizer Yes Univers accessories 7-12 ity of (HYPERSONIQ 14:33: [place] NEBULIZER Medical [facility]) ALPHAGAN P Yes Place in Uni vers OPHTHALMIC 7-12 each eye. ity of 14:33: [address] Branch Ascorbate Yes Take by Unive rs Calcium 500 7-12 mouth. ity of mg Tab 14:33: Once a day [place] [address] Medical Branch Magnesium Yes Take by Unive rs (MAGNACAPS) 7-12 mouth. 2 ity of 100 mg Cap 14:33: capsules [place] as 03 twice a Medical day Branch aspirin 81 Yes 81mg Take 81 mg U nivers mg EC 7-12 by mouth ity of tablet 14:33: daily. [address] nebulizer Yes Univers accessories 7-12 ity of (HYPERSONIQ 14:33: [place] NEBULIZER [address] [place] [address]) ALPHAGAN P Yes Place in Uni vers OPHTHALMIC 7-12 each eye. ity of 14:33: [address] Ascorbate Yes Take by Unive rs Calcium 500 7-12 mouth. ity of mg Tab 14:33: Once a day [address] Magnesium Yes Take by [facility] rs (MAGNACAPS) 7-12 mouth. 2 ity of 100 mg Cap 14:33: capsules [place] as 03 twice a Medical day Branch aspirin 81 0 Yes 81mg Take 81 mg U nivers mg EC 7-12 by mouth ity of tablet 14:33: daily. [address] nebulizer Yes Univers accessories 7-12 ity of (HYPERSONIQ 14:33: [place] NEBULIZER Medical [facility]) CITRACAL Yes Take by Univer s PLUS ORAL 3-31 mouth. ity of 13:09: Twice a [place] day [facility] Branch hyoscyamine Yes .125mg Take 0.125 Univers 0.125 mg 3-31 mg by ity of tablet 13:09: mouth. [place] [facility] CITRACAL 2-0 Yes Take by Univer s PLUS ORAL 3-31 mouth. ity of 13:09: Twice a Medical Branch hyoscyamine 2-0 Yes .125mg Take 0.125 Univers 0.125 mg 3-31 mg by ity of tablet 13:09: mouth. Medical Branch CITRACAL 2021-0 Yes Take by Univer s PLUS ORAL 3-31 mouth. ity of 13:09: Twice a Medical Branch hyoscyamine 2-0 Yes .125mg Take 0.125 Univers 0.125 mg 3-31 mg by ity of tablet 13:09: mouth. Medical Branch CITRACAL 2021-0 Yes Take by Univer s PLUS ORAL 3-31 mouth. ity of 13:09: Twice a Medical Branch hyoscyamine 2021-0 Yes .125mg Take 0.125 Univers 0.125 mg 3-31 mg by ity of tablet 13:09: mouth. Medical Branch CITRACAL 2021-0 Yes Take by Univer s PLUS ORAL 3-31 mouth. ity of 13:09: Twice a Medical Branch hyoscyamine 2021-0 Yes .125mg Take 0.125 Univers 0.125 mg 3-31 mg by ity of tablet 13:09: mouth. Medical Branch CITRACAL 2-0 Yes Take by Univer s PLUS ORAL 3-31 mouth. ity of 13:09: Twice a Medical Branch hyoscyamine 2-0 Yes .125mg Take 0.125 Univers 0.125 mg 3-31 mg by ity of tablet 13:09: mouth. [place] [address] Medical Branch CITRACAL 2-0 Yes Take by Univer s PLUS ORAL 3-31 mouth. ity of 13:09: Twice a Medical Branch hyoscyamine 2-0 Yes .125mg Take 0.125 Univers 0.125 mg 3-31 mg by ity of tablet 13:09: mouth. Medical Branch CITRACAL 2-0 Yes Take by Univer s PLUS ORAL 3-31 mouth. ity of 13:09: Twice a day Medical Branch hyoscyamine 2022-0 Yes .125mg Take 0.125 Univers 0.125 mg 3-31 mg by ity of tablet 13:09: mouth. Medical Branch CITRACAL 2021-0 Yes Take by Univer s PLUS ORAL 3-31 mouth. ity of 13:09: Twice a Medical Branch hyoscyamine 2021-0 Yes .125mg Take 0.125 Univers 0.125 mg 3-31 mg by ity of tablet 13:09: mouth. Medical Branch CITRACAL 2021-0 Yes Take by Univer s PLUS ORAL 3-31 mouth. ity of 13:09: Twice a Medical Branch hyoscyamine 2021-0 Yes .125mg Take 0.125 Univers 0.125 mg 3-31 mg by ity of tablet 13:09: mouth. Medical Branch CITRACAL 2021-0 Yes Take by Univer s PLUS ORAL 3-31 mouth. ity of 13:09: Twice a Medical Branch hyoscyamine 2021-0 Yes .125mg Take 0.125 Univers 0.125 mg 3-31 mg by ity of tablet 13:09: mouth. Medical Branch CITRACAL 2021-0 Yes Take by Univer s PLUS ORAL 3-31 mouth. ity of 13:09: Twice a Medical Branch hyoscyamine 2021-0 Yes .125mg Take 0.125 Univers 0.125 mg 3-31 mg by ity of tablet 13:09: mouth. Medical Branch CITRACAL 2021-0 Yes Take by Univer s PLUS ORAL 3-31 mouth. ity of 13:09: Twice a Medical Branch hyoscyamine 2-0 Yes .125mg Take 0.125 Univers 0.125 mg 3-31 mg by ity of tablet 13:09: mouth. Medical Branch CITRACAL 2021-0 Yes Take by Univer s PLUS ORAL 3-31 mouth. ity of 13:09: Twice a Medical Branch hyoscyamine 2021-0 Yes .125mg Take 0.125 Univers 0.125 mg 3-31 mg by ity of tablet 13:09: mouth. Medical Branch CITRACAL 2021-0 Yes Take by Univer s PLUS ORAL 3-31 mouth. ity of 13:09: Twice a Medical Branch hyoscyamine 2022-0 Yes .125mg Take 0.125 Univers 0.125 mg 3-31 mg by ity of tablet 13:09: mouth. Medical Branch CITRACAL 2-0 Yes Take by Univer s PLUS ORAL 3-31 mouth. ity of 13:09: Twice a Medical Branch hyoscyamine 2-0 Yes .125mg Take 0.125 Univers 0.125 mg 3-31 mg by ity of tablet 13:09: mouth. [place] [facility] CITRACAL 2-0 Yes Take by Univer s PLUS ORAL 3-31 mouth. ity of 13:09: Twice a Medical Branch hyoscyamine 2-0 Yes .125mg Take 0.125 Univers 0.125 mg 3-31 mg by ity of tablet 13:09: mouth. Medical Branch CITRACAL 2021-0 Yes Take by Univer s PLUS ORAL 3-31 mouth. ity of 13:09: Twice a Medical Branch hyoscyamine 2-0 Yes .125mg Take 0.125 Univers 0.125 mg 3-31 mg by ity of tablet 13:09: mouth. [place] [address] Medical Branch CITRACAL 2021-0 Yes Take by Univer s PLUS ORAL 3-31 mouth. ity of 13:09: Twice a Medical Branch hyoscyamine 2-0 Yes .125mg Take 0.125 Univers 0.125 mg 3-31 mg by ity of tablet 13:09: mouth. Medical Branch CITRACAL 2-0 Yes Take by Univer s PLUS ORAL 3-31 mouth. ity of 13:09: Twice a Medical Branch hyoscyamine 2-0 Yes .125mg Take 0.125 Univers 0.125 mg 3-31 mg by ity of tablet 13:09: mouth. [place] [address] Medical Branch CITRACAL 2-0 Yes Take by Univer s PLUS ORAL 3-31 mouth. ity of 13:09: Twice a Medical Branch hyoscyamine 2-0 Yes .125mg Take 0.125 Univers 0.125 mg 3-31 mg by ity of tablet 13:09: mouth. [place] [address] Medical Branch CITRACAL 2021-0 Yes Take by Univer s PLUS ORAL 3-31 mouth. ity of 13:09: Twice a Medical Branch hyoscyamine 2021-0 Yes .125mg Take 0.125 Univers 0.125 mg 3-31 mg by ity of tablet 13:09: mouth. Medical Branch CITRACAL 2021-0 Yes Take by Univer s PLUS ORAL 3-31 mouth. ity of 13:09: Twice a Medical Branch hyoscyamine 2021-0 Yes .125mg Take 0.125 Univers 0.125 mg 3-31 mg by ity of tablet 13:09: mouth. [place] [address] Medical Branch CITRACAL 2021-0 Yes Take by Univer s PLUS ORAL 3-31 mouth. ity of 13:09: Twice a Medical Branch hyoscyamine 2021-0 Yes .125mg Take 0.125 Univers 0.125 mg 3-31 mg by ity of tablet 13:09: mouth. [place] [address] Medical Branch CITRACAL 2021-0 Yes Take by Univer s PLUS ORAL 3-31 mouth. ity of 13:09: Twice a Medical Branch hyoscyamine 2021-0 Yes .125mg Take 0.125 Univers 0.125 mg 3-31 mg by ity of tablet 13:09: mouth. [place] [address] Medical Branch CITRACAL 2021-0 Yes Take by Univer s PLUS ORAL 3-31 mouth. ity of 13:09: Twice a Medical Branch hyoscyamine 2-0 Yes .125mg Take 0.125 Univers 0.125 mg 3-31 mg by ity of tablet 13:09: mouth. [place] [address] Medical Branch CITRACAL 2021-0 Yes Take by Univer s PLUS ORAL 3-31 mouth. ity of 13:09: Twice a Medical Branch hyoscyamine 2-0 Yes .125mg Take 0.125 Univers 0.125 mg 3-31 mg by ity of tablet 13:09: mouth. [place] [address] Medical Branch CITRACAL 2021-0 Yes Take by Univer s PLUS ORAL 3-31 mouth. ity of 13:09: Twice a [place] [facility] Branch hyoscyamine 2021-0 Yes .125mg Take 0.125 Univers 0.125 mg 3-31 mg by ity of tablet 13:09: mouth. Medical Branch CITRACAL 2021-0 Yes Take by Univer s PLUS ORAL 3-31 mouth. ity of 13:09: Twice a Medical Branch hyoscyamine 2021-0 Yes .125mg Take 0.125 Univers 0.125 mg 3-31 mg by ity of tablet 13:09: mouth. Medical Branch CITRACAL 2021-0 Yes Take by Univer s PLUS ORAL 3-31 mouth. ity of 13:09: Twice a Medical Branch hyoscyamine 2021-0 Yes .125mg Take 0.125 Univers 0.125 mg 3-31 mg by ity of tablet 13:09: mouth. Medical Branch CITRACAL 2021-0 Yes Take by Univer s PLUS ORAL 3-31 mouth. ity of 13:09: Twice a Medical Branch hyoscyamine 2021-0 Yes .125mg Take 0.125 Univers 0.125 mg 3-31 mg by ity of tablet 13:09: mouth. Medical Branch CITRACAL 2021-0 Yes Take by Univer s PLUS ORAL 3-31 mouth. ity of 13:09: Twice a Medical Branch hyoscyamine 2021-0 Yes .125mg Take 0.125 Univers 0.125 mg 3-31 mg by ity of tablet 13:09: mouth. Medical Branch CITRACAL 2021-0 Yes Take by Univer s PLUS ORAL 3-31 mouth. ity of 13:09: Twice a Medical Branch CITRACAL 2021-0 Yes Take by Univer s PLUS ORAL 3-31 mouth. ity of 13:09: Twice a Medical Branch CITRACAL 2021-0 Yes Take by Univer s PLUS ORAL 3-31 mouth. ity of 13:09: Twice a Medical Branch CITRACAL 2021-0 Yes Take by Univer s PLUS ORAL 3-31 mouth. ity of 13:09: Twice a Medical Branch CITRACAL 2021-0 Yes Take by Univer s PLUS ORAL 3-31 mouth. ity of 13:09: Twice a Medical Branch CITRACAL 2021-0 Yes Take by Univer s PLUS ORAL 3-31 mouth. ity of 13:09: Twice a [place] 20 day Medical Branch CITRACAL Yes Take by Univer s PLUS ORAL 3-31 mouth. ity of 13:09: Twice a [place] 20 day Medical Branch losartan 25 2021-0 Yes [id number] 25mg Take 1 Univers mg tablet 3-31 tablet by ity o f 00:00: mouth [place] 00 daily. Medical Branch losartan 25 0 Yes [id number] 25mg Take 1 Univers mg tablet 3-31 tablet by ity o f 00:00: mouth [place] 00 daily. Medical Branch losartan 25 0 Yes [id number] 25mg Take 1 Univers mg tablet 3-31 tablet by ity o f 00:00: mouth [place] 00 daily. Medical Branch losartan 25 0 Yes [id number] 25mg Take 1 Univers mg tablet 3-31 tablet by ity o f 00:00: mouth [place] 00 daily. Medical Branch losartan 25 0 Yes [id number] 25mg Take 1 Univers mg tablet 3-31 tablet by ity o f 00:00: mouth [place] 00 daily. Medical Branch losartan 25 0 Yes [id number] 25mg Take 1 Univers mg tablet 3-31 tablet by ity o f 00:00: mouth [place] 00 daily. Medical Branch losartan 25 0 Yes [id number] 25mg Take 1 Univers mg tablet 3-31 tablet by ity o f 00:00: mouth [place] 00 daily. Medical Branch losartan 25 0 Yes [id number] 25mg Take 1 Univers mg tablet 3-31 tablet by ity o f 00:00: mouth [place] 00 daily. Medical Branch losartan 25 2021-0 Yes [id number] 25mg Take 1 Univers mg tablet 3-31 tablet by ity o f 00:00: mouth [place] 00 daily. Medical Branch losartan 25 2021-0 Yes [id number] 25mg Take 1 Univers mg tablet 3-31 tablet by ity o f 00:00: mouth [place] 00 daily. Medical Branch losartan 25 2021-0 Yes [id number] 25mg Take 1 Univers mg tablet 3-31 tablet by ity o f 00:00: mouth [place] 00 daily. Medical Branch losartan 25 2021-0 Yes [id number] 25mg Take 1 Univers mg tablet 3-31 tablet by ity o f 00:00: mouth [place] 00 daily. Medical Branch losartan 25 2022-0 Yes [id number] 25mg Take 1 Univers mg tablet 3-31 tablet by ity o f 00:00: mouth [place] 00 daily. Medical Branch losartan 25 0 Yes [id number] 25mg Take 1 Univers mg tablet 3-31 tablet by ity o f 00:00: mouth [place] 00 daily. Medical Branch losartan 25 0 Yes [id number] 25mg Take 1 Univers mg tablet 3-31 tablet by ity o f 00:00: mouth [place] 00 daily. Medical Branch losartan 25 0 Yes [id number] 25mg Take 1 Univers mg tablet 3-31 tablet by ity o f 00:00: mouth [place] 00 daily. Medical Branch losartan 25 0 Yes [id number] 25mg Take 1 Univers mg tablet 3-31 tablet by ity o f 00:00: mouth [place] 00 daily. Medical Branch losartan 25 0 Yes [id number] 25mg Take 1 Univers mg tablet 3-31 tablet by ity o f 00:00: mouth [place] 00 daily. Medical Branch losartan 25 0 Yes [id number] 25mg Take 1 Univers mg tablet 3-31 tablet by ity o f 00:00: mouth [place] 00 daily. Medical Branch losartan 25 0 Yes [id number] 25mg Take 1 Univers mg tablet 3-31 tablet by ity o f 00:00: mouth [place] 00 daily. Medical Branch losartan 25 0 Yes [id number] 25mg Take 1 Univers mg tablet 3-31 tablet by ity o f 00:00: mouth [place] 00 daily. Medical Branch losartan 25 0 Yes [id number] 25mg Take 1 Univers mg tablet 3-31 tablet by ity o f 00:00: mouth [place] 00 daily. Medical Branch losartan 25 0 Yes [id number] 25mg Take 1 Univers mg tablet 3-31 tablet by ity o f 00:00: mouth [place] 00 daily. Medical Branch losartan 25 2021-0 Yes [id number] 25mg Take 1 Univers mg tablet 3-31 tablet by ity o f 00:00: mouth [place] 00 daily. Medical Branch losartan 25 2021-0 Yes [id number] 25mg Take 1 Univers mg tablet 3-31 tablet by ity o f 00:00: mouth [place] 00 daily. Medical Branch losartan 25 2021-0 Yes [id number] 25mg Take 1 Univers mg tablet 3-31 tablet by ity o f 00:00: mouth [place] 00 daily. Medical Branch losartan 25 0 Yes [id number] 25mg Take 1 Univers mg tablet 3-31 tablet by ity o f 00:00: mouth [place] 00 daily. Medical Branch losartan 25 2021-0 Yes [id number] 25mg Take 1 Univers mg tablet 3-31 tablet by ity o f 00:00: mouth [place] 00 daily. Medical Branch losartan 25 2021-0 Yes [id number] 25mg Take 1 Univers mg tablet 3-31 tablet by ity o f 00:00: mouth [place] 00 daily. Medical Branch losartan 25 0 Yes [id number] 25mg Take 1 Univers mg tablet 3-31 tablet by ity o f 00:00: mouth [place] 00 daily. Medical Branch losartan 25 2021-0 Yes [id number] 25mg Take 1 Univers mg tablet 3-31 tablet by ity o f 00:00: mouth [place] 00 daily. Medical Branch losartan 25 2021-0 Yes [id number] 25mg Take 1 Univers mg tablet 3-31 tablet by ity o f 00:00: mouth [place] 00 daily. Medical Branch losartan 25 0 Yes [id number] 25mg Take 1 Univers mg tablet 3-31 tablet by ity o f 00:00: mouth [place] 00 daily. Medical Branch losartan 25 2021-0 Yes [id number] 25mg Take 1 Univers mg tablet 3-31 tablet by ity o f 00:00: mouth [place] 00 daily. Medical Branch losartan 25 2021-0 Yes [id number] 25mg Take 1 Univers mg tablet 3-31 tablet by ity o f 00:00: mouth [place] 00 daily. Medical Branch losartan 25 2021-0 Yes [id number] 25mg Take 1 Univers mg tablet 3-31 tablet by ity o f 00:00: mouth [place] 00 daily. Medical Branch losartan 25 2021-0 Yes [id number] 25mg Take 1 Univers mg tablet 3-31 tablet by ity o f 00:00: mouth [place] 00 daily. Medical Branch losartan 25 2021-0 Yes [id number] 25mg Take 1 Univers mg tablet 3-31 tablet by ity o f 00:00: mouth [place] 00 daily. Medical Branch losartan 25 2021-0 Yes [id number] 25mg Take 1 [facility] mg tablet 3-31 tablet by ity o f 00:00: mouth [place] 00 daily. Medical Branch calcium 2021-0 Yes Take by [facility] citrate/vit 7-[address] [facility] D3 14:24: [facility]osp[facility] (CITRACAL 07 l REGULAR ORAL) multivit-mi Yes 1{tbl} Take 1 Me thodi nerals/ferr 7-[address] o[facility] fum 14:24: mouth. Hospita (MULTI 07 l VITAMIN ORAL) pregabalin Yes 50mg [id number] Take 50 mg [facility] (LYRICA) 50 7-07 [id number] [address] mouth [address] MG capsule 14:24: 3D (three) Hosp parmjit 07 times a l day. ascorbate Yes Take by Metho di calcium 7- mouth. st (VITAMIN C 14:24: Hospita ORAL) 07 l LUTEIN ORAL Yes Take by [facility] h[facility] 7- mouth. st 14:24: Hospita 07 l B-complex Yes 1{tbl} QD Take 1 Meth shashi with 7-[address] vitamin C 14:24: mouth [facility]ospita tablet 07 daily. l Lactobacill Yes Take by Met hodi us - mouth. st acidophilus 14:24: Hospit a (PROBIOTIC 07 l ORAL) calcium Yes Take by [facility] citrate/vit 7-[address] [facility] D3 14:24: Hospita (CITRACAL 07 l REGULAR ORAL) multivit-mi Yes 1{tbl} Take 1 Me thodi nerals/ferr 7-[address] ous fum 14:24: mouth. Hospita (MULTI 07 l VITAMIN ORAL) pregabalin 0 Yes 50mg [id number] Take 50 mg [facility] (LYRICA) 50 7-07 [id number] by mouth [address] MG capsule 14:24: 3D (three) Hosp parmjit 07 times a l day. ascorbate 0 Yes Take by Metho di calcium 7-[address] (VITAMIN C 14:24: Hospita ORAL) 07 l LUTEIN ORAL 0 Yes Take by [facility] 7- mouth. st 14:24: Hospita 07 l B-complex 0 Yes 1{tbl} QD Take 1 Meth shashi with 7-[address] vitamin C 14:24: mouth [facility]ospita tablet 07 daily. l Lactobacill Yes Take by Met hodi us 08-[address] acidophilus 14:24: Hospit a (PROBIOTIC 07 l ORAL) calcium Yes Take by [facility] citrate/vit 08-[address] [facility] D3 14:24: [facility]ospita (CITRACAL 07 l REGULAR ORAL) multivit-mi Yes 1{tbl} Take 1 Me thodi nerals/ferr 08-[address] ous fum 14:24: mouth. Hospita (MULTI 07 l VITAMIN ORAL) pregabalin Yes 50mg [id number] Take 50 mg [facility] (LYRICA) 50 08-31 [id number] mouth [address] MG capsule 14:24: 3D (three) Hosp parmjit 07 times a l day. ascorbate Yes Take by [facility]o di calcium 08-[address] (VITAMIN C 14:24: Hospita ORAL) 07 l LUTEIN ORAL Yes Take by Met hodi 08-[address] 14:24: Hospita 07 l B-complex Yes 1{tbl} QD Take 1 Meth shashi with 08-31 tablet by vitamin C 14:24: mouth [facility]ospita tablet 07 daily. l Lactobacill Yes Take by Met hodi us 08-[address] acidophilus 14:24: Hospit a (PROBIOTIC 07 l ORAL) gentamicin Yes MIX 1 VIAL U nivers 40 mg/mL 2-23 (80MG) ity of injection 00:00: WITH 2ML [place] 00 OF NORMAL Medical SALINE AND Branch NEBULIZE TWICE A DAY FOR 7 DAYS ON AND FOR 7 DAYS OFF gentamicin 0 Yes MIX 1 VIAL U nivers 40 mg/mL 2-23 (80MG) ity of injection 00:00: WITH 2ML [place] 00 OF NORMAL Medical SALINE AND Branch NEBULIZE TWICE A DAY FOR 7 DAYS ON AND FOR 7 DAYS OFF gentamicin 2020-0 Yes MIX 1 VIAL U nivers 40 mg/mL 2-23 (80MG) ity of injection 00:00: WITH 2ML [place] 00 OF NORMAL Medical SALINE AND Branch NEBULIZE TWICE A DAY FOR 7 DAYS ON AND FOR 7 DAYS OFF gentamicin 0 Yes MIX 1 VIAL U nivers 40 mg/mL 2-23 (80MG) ity of injection 00:00: WITH 2ML [place] 00 OF NORMAL Medical SALINE AND Branch NEBULIZE TWICE A DAY FOR 7 DAYS ON AND FOR 7 DAYS OFF gentamicin 2021-0 Yes MIX 1 VIAL U nivers 40 mg/mL 2-23 (80MG) ity of injection 00:00: WITH 2ML [place] 00 OF NORMAL Medical SALINE AND Branch NEBULIZE TWICE A DAY FOR 7 DAYS ON AND FOR 7 DAYS OFF gentamicin 2021-0 Yes MIX 1 VIAL U nivers 40 mg/mL 2-23 (80MG) ity of injection 00:00: WITH 2ML [place] 00 OF NORMAL Medical SALINE AND Branch NEBULIZE TWICE A DAY FOR 7 DAYS ON AND FOR 7 DAYS OFF gentamicin 2021-0 Yes MIX 1 VIAL U nivers 40 mg/mL 2-23 (80MG) ity of injection 00:00: WITH 2ML [place] 00 OF NORMAL Medical SALINE AND Branch NEBULIZE TWICE A DAY FOR 7 DAYS ON AND FOR 7 DAYS OFF gentamicin 2021-0 Yes MIX 1 VIAL U nivers 40 mg/mL 2-23 (80MG) ity of injection 00:00: WITH 2ML [place] 00 OF NORMAL Medical SALINE AND Branch NEBULIZE TWICE A DAY FOR 7 DAYS ON AND FOR 7 DAYS OFF gentamicin 2021-0 Yes MIX 1 VIAL U nivers 40 mg/mL 2-23 (80MG) ity of injection 00:00: WITH 2ML [place] 00 OF NORMAL Medical SALINE AND Branch NEBULIZE TWICE A DAY FOR 7 DAYS ON AND FOR 7 DAYS OFF gentamicin 2021-0 Yes MIX 1 VIAL U nivers 40 mg/mL 2-23 (80MG) ity of injection 00:00: WITH 2ML [place] 00 OF NORMAL Medical SALINE AND Branch NEBULIZE TWICE A DAY FOR 7 DAYS ON AND FOR 7 DAYS OFF gentamicin 2021-0 Yes MIX 1 VIAL U nivers 40 mg/mL 2-23 (80MG) ity of injection 00:00: WITH 2ML [place] 00 OF NORMAL Medical SALINE AND Branch NEBULIZE TWICE A DAY FOR 7 DAYS ON AND FOR 7 DAYS OFF gentamicin 2021-0 Yes MIX 1 VIAL U nivers 40 mg/mL 2-23 (80MG) ity of injection 00:00: WITH 2ML [place] 00 OF NORMAL Medical SALINE AND Branch NEBULIZE TWICE A DAY FOR 7 DAYS ON AND FOR 7 DAYS OFF gentamicin 2021-0 Yes MIX 1 VIAL U nivers 40 mg/mL 2-23 (80MG) ity of injection 00:00: WITH 2ML [place] 00 OF NORMAL Medical SALINE AND Branch NEBULIZE TWICE A DAY FOR 7 DAYS ON AND FOR 7 DAYS OFF gentamicin 2021-0 Yes MIX 1 VIAL U nivers 40 mg/mL 2-23 (80MG) ity of injection 00:00: WITH 2ML [place] 00 OF NORMAL Medical SALINE AND Branch NEBULIZE TWICE A DAY FOR 7 DAYS ON AND FOR 7 DAYS OFF gentamicin 2021-0 Yes MIX 1 VIAL U nivers 40 mg/mL 2-23 (80MG) ity of injection 00:00: WITH 2ML [place] 00 OF NORMAL Medical SALINE AND Branch NEBULIZE TWICE A DAY FOR 7 DAYS ON AND FOR 7 DAYS OFF gentamicin 2021-0 Yes MIX 1 VIAL U nivers 40 mg/mL 2-23 (80MG) ity of injection 00:00: WITH 2ML [place] 00 OF NORMAL Medical SALINE AND Branch NEBULIZE TWICE A DAY FOR 7 DAYS ON AND FOR 7 DAYS OFF gentamicin 2021-0 Yes MIX 1 VIAL U nivers 40 mg/mL 2-23 (80MG) ity of injection 00:00: WITH 2ML [place] 00 OF NORMAL Medical SALINE AND Branch NEBULIZE TWICE A DAY FOR 7 DAYS ON AND FOR 7 DAYS OFF gentamicin 2021-0 Yes MIX 1 VIAL U nivers 40 mg/mL 2-23 (80MG) ity of injection 00:00: WITH 2ML [place] 00 OF NORMAL Medical SALINE AND Branch NEBULIZE TWICE A DAY FOR 7 DAYS ON AND FOR 7 DAYS OFF gentamicin 2021-0 Yes MIX 1 VIAL U nivers 40 mg/mL 2-23 (80MG) ity of injection 00:00: WITH 2ML [place] 00 OF NORMAL Medical SALINE AND Branch NEBULIZE TWICE A DAY FOR 7 DAYS ON AND FOR 7 DAYS OFF gentamicin 2021-0 Yes MIX 1 VIAL U nivers 40 mg/mL 2-23 (80MG) ity of injection 00:00: WITH 2ML [place] 00 OF NORMAL Medical SALINE AND Branch NEBULIZE TWICE A DAY FOR 7 DAYS ON AND FOR 7 DAYS OFF gentamicin 2021-0 Yes MIX 1 VIAL U nivers 40 mg/mL 2-23 (80MG) ity of injection 00:00: WITH 2ML [place] 00 OF NORMAL Medical SALINE AND Branch NEBULIZE TWICE A DAY FOR 7 DAYS ON AND FOR 7 DAYS OFF gentamicin 2020-0 Yes MIX 1 VIAL U nivers 40 mg/mL 2-23 (80MG) ity of injection 00:00: [place] 2ML [place] OF NORMAL Medical SALINE AND Branch NEBULIZE TWICE A DAY FOR 7 DAYS ON AND FOR 7 DAYS OFF gentamicin 2020-0 Yes MIX 1 VIAL U nivers 40 mg/mL 2-23 (80MG) ity of injection 00:00: [place] 2ML [place] OF [place]ORMAL Medical SALINE AND Branch NEBULIZE TWICE A DAY FOR 7 DAYS ON AND FOR 7 DAYS OFF gentamicin 2020-0 Yes MIX 1 VIAL U nivers 40 mg/mL 2-23 (80MG) ity of injection 00:00: [place] 2ML [place] OF NORMAL Medical SALINE AND Branch NEBULIZE TWICE A DAY FOR 7 DAYS ON AND FOR 7 DAYS OFF gentamicin 2020-0 Yes MIX 1 VIAL U nivers 40 mg/mL 2-23 (80MG) ity of injection 00:00: WITH 2ML [place] OF NORMAL Medical SALINE AND Branch NEBULIZE TWICE A DAY FOR 7 DAYS ON AND FOR 7 DAYS OFF gentamicin 2020-0 3- No MIX 1 VIAL [facility] 40 mg/mL 2-23 07-25 (80MG) ity of injection 00:00: 00:00 WITH 2ML [place] 00 :00 OF NORMAL Medical SALINE AND Branch NEBULIZE TWICE A DAY FOR 7 DAYS ON AND FOR 7 DAYS OFF gentamicin 202-0 3- No MIX 1 VIAL [facility] 40 mg/mL 2-23 07-25 (80MG) ity of injection 00:00: 00:00 WITH 2ML [place] 00 :00 OF NORMAL Medical SALINE AND Branch NEBULIZE TWICE A DAY FOR 7 DAYS ON AND FOR 7 DAYS OFF gentamicin 202-0 3- No MIX 1 VIAL [facility] 40 mg/mL 2-23 07-25 (80MG) ity of injection 00:00: 00:00 WITH 2ML [place] 00 :00 OF NORMAL Medical SALINE AND Branch NEBULIZE TWICE A DAY FOR 7 DAYS ON AND FOR 7 DAYS OFF gentamicin 2021-0 2023- No MIX 1 VIAL [facility] 40 mg/mL 2-23 07-25 (80MG) ity of injection 00:00: 00:00 WITH 2ML [place] 00 :00 OF NORMAL Medical SALINE AND Branch NEBULIZE TWICE A DAY FOR 7 DAYS ON AND FOR 7 DAYS OFF estazolam 2 Yes TAKE 1 Univ ers mg tablet 2-11 TABLET BY ity o f 00:00: MOUTH AT [place] 00 BEDTIME Medical NEEDED FOR Branch SLEEP estazolam 2 Yes TAKE 1 Univ ers mg tablet 2-11 TABLET BY ity o f 00:00: MOUTH AT [place] 00 BEDTIME Medical NEEDED FOR Branch SLEEP estazolam 2 Yes TAKE 1 Univ ers mg tablet 2-11 TABLET BY ity o f 00:00: MOUTH AT [place] 00 BEDTIME Medical NEEDED FOR Branch SLEEP estazolam 2 Yes TAKE 1 Univ ers mg tablet 2-11 TABLET BY ity o f 00:00: MOUTH AT [place] BEDTIME Medical NEEDED FOR Branch SLEEP estazolam 2 Yes TAKE 1 Univ ers mg tablet 2-11 TABLET BY ity o f 00:00: MOUTH AT [place] BEDTIME Medical NEEDED FOR Branch SLEEP estazolam 2 Yes TAKE 1 Univ ers mg tablet 2-11 TABLET BY ity o f 00:00: MOUTH AT [place] BEDTIME Medical NEEDED FOR Branch SLEEP estazolam 2 Yes TAKE 1 Univ ers mg tablet 2-11 TABLET BY ity o f 00:00: MOUTH AT [place] BEDTIME Medical NEEDED FOR Branch SLEEP estazolam 2 Yes TAKE 1 Univ ers mg tablet 2-11 TABLET BY ity o f 00:00: MOUTH AT [place] BEDTIME Medical NEEDED FOR Branch SLEEP estazolam 2 Yes TAKE 1 Univ ers mg tablet 2-11 TABLET BY ity o f 00:00: MOUTH AT [place] 00 BEDTIME Medical NEEDED FOR Branch SLEEP estazolam 2 Yes TAKE 1 Univ ers mg tablet 2-11 TABLET BY ity o f 00:00: MOUTH AT [place] BEDTIME Medical NEEDED FOR Branch SLEEP estazolam 2 2020- Yes TAKE 1 Univ ers mg tablet 2-11 TABLET BY ity o f 00:00: MOUTH AT [place] 00 BEDTIME Medical NEEDED FOR Branch SLEEP estazolam 2 2020- Yes TAKE 1 Univ ers mg tablet 2-11 TABLET BY ity o f 00:00: MOUTH AT [place] 00 BEDTIME Medical NEEDED FOR Branch SLEEP estazolam 2 Yes TAKE 1 Univ ers mg tablet 2-11 TABLET BY ity o f 00:00: MOUTH AT [place] BEDTIME Medical NEEDED FOR Branch SLEEP estazolam 2 Yes TAKE 1 [facility] ers mg tablet 2-11 TABLET BY ity o f 00:00: MOUTH AT [place] BEDTIME Medical NEEDED FOR Branch SLEEP estazolam 2 Yes TAKE 1 Univ ers mg tablet 2-11 TABLET BY ity o f 00:00: MOUTH AT [place] BEDTIME Medical NEEDED FOR Branch SLEEP estazolam 2 Yes TAKE 1 Univ ers mg tablet 2-11 TABLET BY ity o f 00:00: MOUTH AT [place] BEDTIME Medical NEEDED FOR Branch SLEEP estazolam 2 Yes TAKE 1 [facility] ers mg tablet 2-11 TABLET BY ity o f 00:00: MOUTH AT [place] BEDTIME Medical NEEDED FOR Branch SLEEP estazolam 2 Yes TAKE 1 Univ ers mg tablet 2-11 TABLET BY ity o f 00:00: MOUTH AT [place] BEDTIME Medical NEEDED FOR Branch SLEEP estazolam 2 Yes TAKE 1 [facility] ers mg tablet 2-11 TABLET BY ity o f 00:00: MOUTH AT [place] BEDTIME Medical NEEDED FOR Branch SLEEP estazolam 2 Yes TAKE 1 [facility] ers mg tablet 2-11 TABLET BY ity o f 00:00: MOUTH AT [place] BEDTIME Medical NEEDED FOR Branch SLEEP estazolam 2 Yes TAKE 1 [facility] ers mg tablet 2-11 TABLET BY ity o f 00:00: MOUTH AT [place] BEDTIME Medical NEEDED FOR Branch SLEEP estazolam 2 Yes TAKE 1 [facility] ers mg tablet 2-11 TABLET BY ity o f 00:00: MOUTH AT [place] BEDTIME Medical NEEDED FOR Branch SLEEP estazolam 2 Yes TAKE 1 [facility] ers mg tablet 2-11 TABLET BY ity o f 00:00: MOUTH AT [place] BEDTIME Medical NEEDED FOR Branch SLEEP estazolam 2 Yes TAKE 1 [facility] ers mg tablet 2-11 TABLET BY ity o f 00:00: MOUTH AT [place] BEDTIME Medical NEEDED FOR Branch SLEEP estazolam 2 Yes TAKE 1 [facility] ers mg tablet 2-11 TABLET BY ity o f 00:00: MOUTH AT [place] BEDTIME Medical NEEDED FOR Branch SLEEP estazolam 2 Yes TAKE 1 [facility] ers mg tablet 2-11 TABLET BY ity o f 00:00: MOUTH AT [place] BEDTIME Medical NEEDED FOR Branch SLEEP estazolam 2 Yes TAKE 1 [facility] ers mg tablet 2-11 TABLET BY ity o f 00:00: MOUTH AT [place] BEDTIME Medical NEEDED FOR Branch SLEEP estazolam 2 Yes TAKE 1 Univ ers mg tablet 2-11 TABLET BY ity o f 00:00: MOUTH AT [place] BEDTIME Medical NEEDED FOR Branch SLEEP estazolam 2 Yes TAKE 1 [facility] ers mg tablet 2-11 TABLET BY ity o f 00:00: MOUTH AT [place] BEDTIME Medical NEEDED FOR Branch SLEEP estazolam 2 Yes TAKE 1 Univ ers mg tablet 2-11 TABLET BY ity o f 00:00: MOUTH AT [place] BEDTIME Medical NEEDED FOR Branch SLEEP estazolam 2 Yes TAKE 1 Univ ers mg tablet 2-11 TABLET BY ity o f 00:00: MOUTH AT [place] BEDTIME Medical NEEDED FOR Branch SLEEP estazolam 2 Yes TAKE 1 [facility] ers mg tablet 2-11 TABLET BY ity o f 00:00: MOUTH AT [place] BEDTIME Medical NEEDED FOR Branch SLEEP estazolam 2 Yes TAKE 1 Univ ers mg tablet 2-11 TABLET BY ity o f 00:00: MOUTH AT [place] BEDTIME Medical NEEDED FOR Branch SLEEP estazolam 2 Yes TAKE 1 [facility] ers mg tablet 2-11 TABLET BY ity o f 00:00: MOUTH AT [place] BEDTIME Medical NEEDED FOR Branch SLEEP estazolam 2 Yes TAKE 1 [facility] ers mg tablet 2-11 TABLET BY ity o f 00:00: MOUTH AT [place] BEDTIME Medical NEEDED FOR Branch SLEEP estazolam 2 Yes TAKE 1 [facility] ers mg tablet 2-11 TABLET BY ity o f 00:00: MOUTH AT [place] BEDTIME Medical NEEDED FOR Branch SLEEP estazolam 2 Yes TAKE 1 [facility] ers mg tablet 2-11 TABLET BY ity o f 00:00: MOUTH AT [place] BEDTIME Medical NEEDED FOR Branch SLEEP estazolam 2 Yes TAKE 1 [facility] ers mg tablet 2-11 TABLET BY ity o f 00:00: MOUTH AT [place] BEDTIME Medical NEEDED FOR Branch SLEEP estazolam 2 Yes TAKE 1 Univ ers mg tablet 2-11 TABLET BY ity o f 00:00: MOUTH AT [place] BEDTIME Medical NEEDED FOR Branch SLEEP atorvastati Yes 10mg Take 10 mg [facility] n 20 mg 2-02 by mouth ity of tablet 00:00: daily. [place] [facility] 2 [facility] ers n 250 mg 2-02 TABLETS BY ity o f tablet 00:00: MOUTH ON [place] Saturday, Medical SATURDAY, AND SATURDAY EACH atorvastati Yes 10mg Take 10 mg Univers n 20 mg 2-02 by mouth ity of tablet 00:00: daily. [place] [facility] 2 [facility] ers n 250 mg 2-02 TABLETS BY ity o f tablet 00:00: MOUTH ON [place] Saturday, Medical SATURDAY, AND SATURDAY EACH atorvastati Yes 10mg Take 10 mg Univers n 20 mg 2-02 by mouth ity of tablet 00:00: daily. [place] [facility] 2 [facility] ers n 250 mg 2-02 TABLETS BY ity o f tablet 00:00: MOUTH ON [place] Saturday, Medical SATURDAY, AND SATURDAY EACH atorvastati 0 Yes 10mg Take 10 mg Univers n 20 mg 2-02 by mouth ity of tablet 00:00: daily. [place] [facility] TAKE 2 [facility] ers n 250 mg 2-02 TABLETS BY ity o f tablet 00:00: MOUTH ON [place] Saturday, Medical SATURDAY, AND SATURDAY EACH WEEK atorvastati 0 Yes 10mg Take 10 mg Univers n 20 mg 2-02 by mouth ity of tablet 00:00: daily. [place] [facility] Yes TAKE 2 Univ ers n 250 mg 2-02 TABLETS BY ity o f tablet 00:00: MOUTH ON [place] Saturday, Medical SATURDAY, AND SATURDAY EACH WEEK atorvastati 0 Yes 10mg Take 10 mg Univers n 20 mg 2-02 by mouth ity of tablet 00:00: daily. [place] [facility] Yes TAKE 2 Univ ers n 250 mg 2-02 TABLETS BY ity o f tablet 00:00: MOUTH ON [place] Saturday, Medical SATURDAY, AND SATURDAY EACH atorvastati 0 Yes 10mg Take 10 mg Univers n 20 mg 2-02 by mouth ity of tablet 00:00: daily. [facility] Yes TAKE 2 Univ ers n 250 mg 2-02 TABLETS BY ity o f tablet 00:00: MOUTH ON [place] Saturday, Medical SATURDAY, AND SATURDAY EACH atorvastati Yes 10mg Take 10 mg Univers n 20 mg 2-02 by mouth ity of tablet 00:00: daily. [place] [facility] Yes TAKE 2 Univ ers n 250 mg 2-02 TABLETS BY ity o f tablet 00:00: MOUTH ON [place] Saturday, Medical SATURDAY, AND SATURDAY EACH atorvastati 0 Yes 10mg Take 10 mg Univers n 20 mg 2-02 by mouth ity of tablet 00:00: daily. [facility] Yes TAKE 2 Univ ers n 250 mg 2-02 TABLETS BY ity o f tablet 00:00: MOUTH ON [place] Saturday, Medical SATURDAY, AND SATURDAY EACH atorvastati 0 Yes 10mg Take 10 mg Univers n 20 mg 2-02 by mouth ity of tablet 00:00: daily. [place] [facility] Yes TAKE 2 Univ ers n 250 mg 2-02 TABLETS BY ity o f tablet 00:00: MOUTH ON [place] Saturday, Medical SATURDAY, AND SATURDAY EACH WEEK atorvastati 0 Yes 10mg Take 10 mg Univers n 20 mg 2-02 by mouth ity of tablet 00:00: daily. [place] [facility] Yes TAKE 2 Univ ers n 250 mg 2-02 TABLETS BY ity o f tablet 00:00: MOUTH ON [place] Saturday, Medical SATURDAY, AND SATURDAY EACH WEEK atorvastati 0 Yes 10mg Take 10 mg Univers n 20 mg 2-02 by mouth ity of tablet 00:00: daily. Medical [facility] Yes TAKE 2 Univ ers n 250 mg 2-02 TABLETS BY ity o f tablet 00:00: MOUTH ON Saturday, Medical SATURDAY, AND SATURDAY EACH atorvastati 0 Yes 10mg Take 10 mg Univers n 20 mg 2-02 by mouth ity of tablet 00:00: daily. [facility] Yes TAKE 2 Univ ers n 250 mg 2-02 TABLETS BY ity o f tablet 00:00: MOUTH ON [place] Saturday, Medical SATURDAY, AND SATURDAY EACH atorvastati Yes 10mg Take 10 mg Univers n 20 mg 2-02 by mouth ity of tablet 00:00: daily. [facility] Yes TAKE 2 Univ ers n 250 mg 2-02 TABLETS BY ity o f tablet 00:00: MOUTH ON [place] Saturday, Medical SATURDAY, AND SATURDAY EACH atorvastati 0 Yes 10mg Take 10 mg Univers n 20 mg 2-02 by mouth ity of tablet 00:00: daily. [facility] Yes TAKE 2 Univ ers n 250 mg 2-02 TABLETS BY ity o f tablet 00:00: MOUTH ON [place] Saturday, Medical SATURDAY, AND SATURDAY EACH atorvastati 0 Yes 10mg Take 10 mg Univers n 20 mg 2-02 by mouth ity of tablet 00:00: daily. [facility] Yes TAKE 2 Univ ers n 250 mg 2-02 TABLETS BY ity o f tablet 00:00: MOUTH ON [place] Saturday, Medical SATURDAY, AND SATURDAY EACH WEEK atorvastati 0 Yes 10mg Take 10 mg Univers n 20 mg 2-02 by mouth ity of tablet 00:00: daily. [place] [facility] Yes TAKE 2 Univ ers n 250 mg 2-02 TABLETS BY ity o f tablet 00:00: MOUTH ON [place] Saturday, Medical SATURDAY, AND SATURDAY EACH atorvastati Yes 10mg Take 10 mg Univers n 20 mg 2-02 by mouth ity of tablet 00:00: daily. [facility] Yes TAKE 2 Univ ers n 250 mg 2-02 TABLETS BY ity o f tablet 00:00: MOUTH ON [place] Saturday, Medical SATURDAY, AND SATURDAY EACH atorvastati 0 Yes 10mg Take 10 mg Univers n 20 mg 2-02 by mouth ity of tablet 00:00: daily. [facility] Yes TAKE 2 Univ ers n 250 mg 2-02 TABLETS BY ity o f tablet 00:00: MOUTH ON [place] Saturday, Medical SATURDAY, AND SATURDAY EACH atorvastati Yes 10mg Take 10 mg Univers n 20 mg 2-02 by mouth ity of tablet 00:00: daily. [place] [facility] Yes TAKE 2 Univ ers n 250 mg 2-02 TABLETS BY ity o f tablet 00:00: MOUTH ON [place] Saturday, Medical SATURDAY, AND SATURDAY EACH atorvastati Yes 10mg Take 10 mg Univers n 20 mg 2-02 by mouth ity of tablet 00:00: daily. [facility] Yes TAKE 2 Univ ers n 250 mg 2-02 TABLETS BY ity o f tablet 00:00: MOUTH ON [place] Saturday, Medical SATURDAY, AND SATURDAY EACH atorvastati 0 Yes 10mg Take 10 mg Univers n 20 mg 2-02 by mouth ity of tablet 00:00: daily. [place] [facility] Yes TAKE 2 Univ ers n 250 mg 2-02 TABLETS BY ity o f tablet 00:00: MOUTH ON [place] Saturday, Medical SATURDAY, AND SATURDAY EACH atorvastati 0 Yes 10mg Take 10 mg Univers n 20 mg 2-02 by mouth ity of tablet 00:00: daily. [place] [facility] Yes TAKE 2 Univ ers n 250 mg 2-02 TABLETS BY ity o f tablet 00:00: MOUTH ON [place] Saturday, Medical SATURDAY, AND SATURDAY EACH atorvastati 0 Yes 10mg Take 10 mg Univers n 20 mg 2-02 by mouth ity of tablet 00:00: daily. Medical [facility] Yes TAKE 2 Univ ers n 250 mg 2-02 TABLETS BY ity o f tablet 00:00: MOUTH ON [place] Saturday, Medical SATURDAY, AND SATURDAY EACH atorvastati 0 Yes 10mg Take 10 mg Univers n 20 mg 2-02 by mouth ity of tablet 00:00: daily. [place] [facility] Yes TAKE 2 Univ ers n 250 mg 2-02 TABLETS BY ity o f tablet 00:00: MOUTH ON [place] Saturday, Medical SATURDAY, AND SATURDAY EACH atorvastati 0 Yes 10mg Take 10 mg Univers n 20 mg 2-02 by mouth ity of tablet 00:00: daily. [place] [facility] Yes TAKE 2 Univ ers n 250 mg 2-02 TABLETS BY ity o f tablet 00:00: MOUTH ON [place] Saturday, Medical SATURDAY, AND SATURDAY EACH atorvastati 0 Yes 10mg Take 10 mg Univers n 20 mg 2-02 by mouth ity of tablet 00:00: daily. [place] [facility] Yes TAKE 2 Univ ers n 250 mg 2-02 TABLETS BY ity o f tablet 00:00: MOUTH ON [place] Saturday, Medical SATURDAY, AND SATURDAY EACH atorvastati 0 Yes 10mg Take 10 mg Univers n 20 mg 2-02 by mouth ity of tablet 00:00: daily. [place] [facility] 0 Yes TAKE 2 Univ ers n 250 mg 2-02 TABLETS BY ity o f tablet 00:00: MOUTH ON [place] Saturday, Medical SATURDAY, AND SATURDAY EACH WEEK atorvastati 0 Yes 10mg Take 10 mg Univers n 20 mg 2-02 by mouth ity of tablet 00:00: daily. [place] [facility] 2021-0 Yes TAKE 2 Univ ers n 250 mg 2-02 TABLETS BY ity o f tablet 00:00: MOUTH ON [place] Saturday, Medical SATURDAY, AND SATURDAY EACH atorvastati 0 Yes 10mg Take 10 mg Univers n 20 mg 2-02 by mouth ity of tablet 00:00: daily. [place] [facility] 0 Yes TAKE 2 Univ ers n 250 mg 2-02 TABLETS BY ity o f tablet 00:00: MOUTH ON [place] Saturday, Medical SATURDAY, AND SATURDAY EACH atorvastati 0 Yes 10mg Take 10 mg Univers n 20 mg 2-02 by mouth ity of tablet 00:00: daily. [place] [facility] azithromyci Yes TAKE 2 Univ ers n 250 mg 2-02 TABLETS BY ity o f tablet 00:00: MOUTH ON [place] Saturday, Medical SATURDAY, AND SATURDAY EACH atorvastati 0 Yes 10mg Take 10 mg Univers n 20 mg 2-02 by mouth ity of tablet 00:00: daily. [place] [facility]ith[facility] 0 Yes TAKE 2 Univ ers n 250 mg 2-02 TABLETS BY ity o f tablet 00:00: MOUTH ON [place] Saturday, Medical SATURDAY, AND SATURDAY EACH azithromyci 0 Yes TAKE 2 Univ ers n 250 mg 2-02 TABLETS BY ity o f tablet 00:00: MOUTH ON [place] Saturday, Medical SATURDAY, AND SATURDAY EACH azithromyci 0 Yes TAKE 2 Univ ers n 250 mg 2-02 TABLETS BY ity o f tablet 00:00: MOUTH ON [place] Saturday, Medical SATURDAY, AND SATURDAY EACH azithromyci 0 Yes TAKE 2 Univ ers n 250 mg 2-02 TABLETS BY ity o f tablet 00:00: MOUTH ON [place] Saturday, Medical SATURDAY, AND SATURDAY EACH azithromyci 0 Yes TAKE 2 Univ ers n 250 mg 2-02 TABLETS BY ity o f tablet 00:00: MOUTH ON [place] Saturday, Medical SATURDAY, AND SATURDAY EACH azithromyci 2021-0 Yes TAKE 2 Univ ers n 250 mg 2-02 TABLETS BY ity o f tablet 00:00: MOUTH ON Saturday, Medical SATURDAY, AND SATURDAY EACH azithromyci 0 Yes TAKE 2 Univ ers n 250 mg 2-02 TABLETS BY ity o f tablet 00:00: MOUTH ON Saturday, Medical SATURDAY, AND SATURDAY EACH azithromyci 2020-0 Yes TAKE 2 Univ ers n 250 mg 2-02 TABLETS BY ity o f tablet 00:00: MOUTH ON Saturday, Medical SATURDAY, AND SATURDAY EACH atorvastati 2022- No 10mg Take 10 mg Univers n 20 mg 03-29 by mouth ity of tablet 00:00: 00:00 daily. [place] 00 :00 Medical Branch atorvastati 0 2022- No 10mg Take 10 mg Univers n 20 mg 03-29 by mouth ity of tablet 00:00: 00:00 daily. [place] 00 :00 Medical Branch atorvastati 2022- No 10mg Take 10 mg Univers n 20 mg 03-29 by mouth ity of tablet 00:00: 00:00 daily. [place] 00 :00 Medical Branch atorvastati 2022- No 10mg Take 10 mg Univers n 20 mg 03-29 by mouth ity of tablet 00:00: 00:00 daily. [place] 00 :00 Medical Branch atorvastati 2022- No 10mg Take 10 mg Univers n 20 mg 03-29 by mouth ity of tablet 00:00: 00:00 daily. [place] 00 :00 Medical Branch timolol 2019-02 Yes Timoptic Univer s maleate PF 0-15 [place] ity of ophthalmic 00:00: (PF) 0.5 % [place] eye drops Medical (TIMOPTIC in a Branch OCUDOSE, dropperett PF,) 0.5 % e drops tafluprost, 2019-02 Yes 1[drp] 1 Drop. U nivers PF, 0-15 ity of (ZIOPTAN, 00:00: [place] PF,) 0.0015 00 Medical % Dpet Branch [...] 00:00: [place] PF,) 0.0015 00 Medical % Dp Branch timolol 2019-02 Yes Timoptic [facility] s maleate PF 0-15 [place] ity of ophthalmic 00:00: (PF) 0.5 % [place] 00 eye drops Medical (TIMOPTIC in a Branch OCUDOSE, dropperett PF,) 0.5 % e drops tafluprost, 2019-02 Yes 1[drp] 1 Drop. U nivers PF, 0-15 ity of (ZIOPTAN, 00:00: [place] PF,) 0.0015 00 Medical % Dp Branch timolol 2019-02 Yes Timoptic Univer s maleate PF 0-15 [place] ity of ophthalmic 00:00: (PF) 0.5 % [place] 00 eye drops Medical (TIMOPTIC in a Branch OCUDOSE, dropperett PF,) 0.5 % e drops tafluprost, 2019-02 Yes 1[drp] 1 Drop. U nivers PF, 0-15 ity of (ZIOPTAN, 00:00: [place] PF,) 0.0015 00 Medical % Dp Branch timolol 2019-02 Yes Timoptic Univer s [...] 00:00: [place] PF,) 0.0015 00 Medical % Dp Branch timolol 2019-02 Yes Timoptic [facility] s maleate PF 0-15 [place] ity of ophthalmic 00:00: (PF) 0.5 % [place] 00 eye drops Medical (TIMOPTIC in a Branch OCUDOSE, dropperett PF,) 0.5 % e drops tafluprost, 2019-02 Yes 1[drp] 1 Drop. U nivers PF, 0-15 ity of (ZIOPTAN, 00:00: [place] PF,) 0.0015 00 Medical % Dp Branch timolol 2019-02 Yes Timoptic [facility] s maleate PF 0-15 [place] ity of ophthalmic 00:00: (PF) 0.5 % [place] 00 eye drops Medical (TIMOPTIC in a Branch OCUDOSE, dropperett PF,) 0.5 % e drops tafluprost, 2019-02 Yes 1[drp] 1 Drop. U nivers PF, 0-15 ity of (ZIOPTAN, 00:00: [place] PF,) 0.0015 00 Medical % [facility] timolol 2019-02 Yes Timoptic Univer s maleate PF 0-15 [place] ity of ophthalmic 00:00: (PF) 0.5 % [place] 00 eye drops Medical (TIMOPTIC in a Branch OCUDOSE, dropperett PF,) 0.5 % e drops tafluprost, 2019-02 Yes 1[drp] 1 Drop. U nivers PF, 0-15 ity of (ZIOPTAN, 00:00: [place] PF,) 0.0015 00 Medical % Dp Branch timolol 2019-02 Yes Timoptic Un[facility] s maleate PF 0-15 [place] ity of ophthalmic 00:00: (PF) 0.5 % [place] eye drops Medical (TIMOPTIC in a Branch OCUDOSE, dropperett PF,) 0.5 % e drops tafluprost, 2020-1 Yes 1[drp] 1 Drop. U nivers PF, [...] [Lyrica] 00 30 cap, 3 Refill(s), [id number] pregabalin 2020-0 Yes 75 mg = 1 Me moria 75 MG Oral 4-02 cap, PO, l Capsule 20:07: Bedtime, # Herm meryl [Lyrica] 00 30 cap, 3 Refill(s), [id number] pregabalin 2020-0 Yes 75 mg = 1 Me moria 75 MG Oral 4-02 cap, PO, l Capsule 20:07: Bedtime, # Herm meryl [Lyrica] 00 30 cap, 3 Refill(s), [id number] pregabalin 2020-0 Yes 75 mg = 1 Me moria 75 MG Oral 4-02 cap, PO, l Capsule 20:07: Bedtime, # Herm meryl [Lyrica] 00 30 cap, 3 Refill(s), [id number] pregabalin 2020-0 Yes 75 mg = 1 Me moria 75 MG Oral 4-02 cap, PO, l Capsule 20:07: Bedtime, # [place] meryl [Lyrica] 00 30 cap, 3 Refill(s), [id number] pregabalin 2020-0 Yes 75 mg = 1 Me moria 75 MG Oral 4-02 cap, PO, l Capsule 20:07: Bedtime, # Herm meryl [Lyrica] 00 30 cap, 3 Refill(s), [id number] pregabalin 2020-0 Yes 75 mg = 1 Me moria 75 MG Oral 4-02 cap, PO, l Capsule 20:07: Bedtime, # Herm meryl [Lyrica] 00 30 cap, 3 Refill(s), [id number] pregabalin 2020-0 Yes 75 mg = 1 Me moria 75 MG Oral 4-02 cap, PO, l Capsule 20:07: Bedtime, # Herm meryl [Lyrica] 00 30 cap, 3 Refill(s), Pharmacy: [facility] #[id number] pregabalin 2020-0 Yes 75 mg = 1 Me moria 75 MG Oral 4-02 cap, PO, l Capsule 20:07: Bedtime, # Herm meryl [Lyrica] 00 30 cap, 3 Refill(s), Pharmacy: [facility] #[id number] pregabalin 2020-0 Yes 75 mg = 1 Me moria 75 MG Oral 4-02 cap, PO, l Capsule 20:07: Bedtime, # Herm meryl [Lyrica] 00 30 cap, 3 Refill(s), Pharmacy: [facility] #[id number] pregabalin 2020-0 Yes 75 mg = 1 Me moria 75 MG Oral 4-02 cap, PO, l Capsule 20:07: Bedtime, # Herm meryl [Lyrica] 00 30 cap, 3 Refill(s), Pharmacy: [facility] #[id number] pregabalin 2020-0 Yes 75 mg = 1 Me moria 75 MG Oral 4-02 cap, PO, l Capsule 20:07: Bedtime, # Herm meryl [Lyrica] 00 30 cap, 3 Refill(s), Pharmacy: [facility] #[id number] pregabalin 2020-0 Yes 75 mg = 1 Me moria 75 MG Oral 4-02 cap, PO, l Capsule 20:07: Bedtime, # Herm meryl [Lyrica] 00 30 cap, 3 Refill(s), Pharmacy: [facility] #[id number] pregabalin 2020-0 Yes 75 mg = 1 Me moria 75 MG Oral 4-02 cap, PO, l Capsule 20:07: Bedtime, # Herm meryl [Lyrica] 00 30 cap, 3 Refill(s), Pharmacy: [facility] #[id number] pregabalin 2020-0 Yes 75 mg = 1 Me moria 75 MG Oral 4-02 cap, PO, l Capsule 20:07: Bedtime, # Herm meryl [Lyrica] 00 30 cap, 3 Refill(s), Pharmacy: [facility] #[id number] pregabalin 2020-0 Yes 75 mg = 1 Me moria 75 MG Oral 4-02 cap, PO, l Capsule 20:07: Bedtime, # Herm meryl [Lyrica] 00 30 cap, 3 Refill(s), Pharmacy: [facility] #[id number] pregabalin 2020-0 Yes 75 mg = 1 Me moria 75 MG Oral 4-02 cap, PO, l Capsule 20:07: Bedtime, # Herm meryl [Lyrica] 00 30 cap, 3 Refill(s), Pharmacy: [facility] #[id number] pregabalin 2020-0 No 75 mg = 1 Me moria 75 MG Oral 4-02 cap, PO, l Capsule 16:34: Bedtime, X Herm meryl [Lyrica] 00 30 day, # 30 cap, 3 Refill(s), Pharmacy: [place] [id number] [facility] pregabalin 2020-0 No 75 mg = 1 Me moria 75 MG Oral 4-02 cap, PO, l Capsule 16:34: Bedtime, X Herm meryl [Lyrica] 00 30 day, # 30 cap, 3 Refill(s), Pharmacy: [place] [id number] [facility] pregabalin 2020-0 No 75 mg = 1 Me moria 75 MG Oral 4-02 cap, PO, l Capsule 16:34: Bedtime, X Herm meryl [Lyrica] 00 30 day, # 30 cap, 3 Refill(s), Pharmacy: [place] [id number] [facility] pregabalin 2020-0 No 75 mg = 1 Me moria 75 MG Oral 4-02 cap, PO, l Capsule 16:34: Bedtime, X Herm meryl [Lyrica] 00 30 day, # 30 cap, 3 Refill(s), Pharmacy: [place] [id number] [facility] pregabalin 2020-0 No 75 mg = 1 Me moria 75 MG Oral 4-02 cap, PO, l Capsule 16:34: Bedtime, X Herm meryl [Lyrica] 00 30 day, # 30 cap, 3 Refill(s), Pharmacy: [place] [id number] [facility] pregabalin 2020-0 No 75 mg = 1 Me moria 75 MG Oral 4-02 cap, PO, l Capsule 16:34: Bedtime, X Herm meryl [Lyrica] 00 30 day, # 30 cap, 3 Refill(s), Pharmacy: [place] [id number] [facility] pregabalin 2020-0 No 75 mg = 1 Me moria 75 MG Oral 4-02 cap, PO, l Capsule 16:34: Bedtime, X Herm meryl [Lyrica] 00 30 day, # 30 cap, 3 Refill(s), Pharmacy: [place] [id number] [facility] pregabalin 2020-0 No 75 mg = 1 Me moria 75 MG Oral 4-02 cap, PO, l Capsule 16:34: Bedtime, X Herm meryl [Lyrica] 00 30 day, # 30 cap, 3 Refill(s), Pharmacy: [place] [id number] [facility] pregabalin 2020-0 No 75 mg = 1 Me moria 75 MG Oral 4-02 cap, PO, l Capsule 16:34: Bedtime, X Herm meryl [Lyrica] 00 30 day, # 30 cap, 3 Refill(s), Pharmacy: [place] [id number] [facility] pregabalin 2020-0 No 75 mg = 1 Me moria 75 MG Oral 4-02 cap, PO, l Capsule 16:34: Bedtime, X Herm meryl [Lyrica] 00 30 day, # 30 cap, 3 Refill(s), Pharmacy: [place] [id number] [facility] pregabalin 2020-0 No 75 mg = 1 Me moria 75 MG Oral 4-02 cap, PO, l Capsule 16:34: Bedtime, X Herm meryl [Lyrica] 00 30 day, # 30 cap, 3 Refill(s), Pharmacy: [place] [id number] [facility] pregabalin 2020-0 No 75 mg = 1 Me moria 75 MG Oral 4-02 cap, PO, l Capsule 16:34: Bedtime, X [facility] [Lyrica] 00 30 day, # 30 cap, 3 Refill(s), Pharmacy: [facility] [id number] [place] [facility] pregabalin 2020-0 No 75 mg = 1 [facility] 75 MG Oral 4-02 cap, PO, l Capsule 16:34: Bedtime, X [facility] [Lyrica] 00 30 day, # 30 cap, 3 Refill(s), Pharmacy: [facility] [id number] [place] pregabalin 2020-0 No 75 mg = 1 [facility] 75 MG Oral 4-02 cap, PO, l Capsule 16:34: Bedtime, X [facility] [Lyrica] 00 30 day, # 30 cap, 3 Refill(s), Pharmacy: [facility] [facility] [id number] [place] [facility] pregabalin 2020-0 No 75 mg = 1 [facility] 75 MG Oral 4-02 cap, PO, l Capsule 16:34: Bedtime, X [facility] [Lyrica] 00 30 day, # 30 cap, 3 Refill(s), Pharmacy: [place] [id number] [place] pregabalin 2020-0 No 75 mg = 1 [facility] 75 MG Oral 4-02 cap, PO, l Capsule 16:34: Bedtime, X [facility] [Lyrica] 00 30 day, # 30 cap, 3 Refill(s), Pharmacy: [place] [id number] [place] pregabalin 2020-0 No 75 mg = 1 Me mor[facility] 75 MG Oral 4-02 cap, PO, l Capsule 16:34: Bedtime, X Herm meryl [Lyrica] 00 30 day, # 30 cap, 3 Refill(s), Pharmacy: [facility] [id number] [place] pregabalin 2018-02 Yes 75 mg = 1 [...] [Lyrica] 55 30 cap, 3 Refill(s) pregabalin 2018- Yes 75 mg = 1 Me moria [...] [Lyrica] 55 30 cap, 3 Refill(s) pregabalin 2018- Yes 75 mg = 1 Me mor[facility] 75 MG Oral 5-07 cap, PO, l Capsule 16:20: Bedtime, # [facility] meryl [Lyrica] 04 30 cap, 3 Refill(s) pregabalin Yes 75 mg = 1 Me [...] 04 30 cap, 3 Refill(s) pregabalin 2019-0 No 75 mg = 1 Me mor[facility] 75 MG Oral 2-05 cap, PO, l Capsule 18:01: Bedtime, # [facility] [Lyrica] 00 30 cap, 3 Refill(s) pregabalin 2019-0 No 75 mg = 1 Me [facility] 75 MG Oral 2-05 cap, PO, l Capsule 18:01: Bedtime, # [facility] [Lyrica] 00 30 cap, 3 Refill(s) pregabalin 2019-0 No 75 mg = 1 Me [facility] 75 MG Oral 2-05 cap, PO, l Capsule 18:01: Bedtime, # [facility] [Lyrica] 00 30 cap, 3 Refill(s) pregabalin 2019-0 No 75 mg = 1 Me [facility] 75 MG Oral 2-05 cap, PO, l Capsule 18:01: Bedtime, # [facility] [Lyrica] 00 30 cap, 3 Refill(s) pregabalin 2019-0 No 75 mg = 1 Me [facility] 75 MG Oral 2-05 cap, PO, l Capsule 18:01: Bedtime, # [facility] [Lyrica] 00 30 cap, 3 Refill(s) pregabalin 2019-0 No 75 mg = 1 Me [facility] 75 MG Oral 2-05 cap, PO, l Capsule 18:01: Bedtime, # [facility] [Lyrica] 00 30 cap, 3 Refill(s) pregabalin 2019-0 No 75 mg = 1 Me mor[facility] 75 MG Oral 2-05 cap, PO, l Capsule 18:01: Bedtime, # [facility] [Lyrica] 00 30 cap, 3 Refill(s) pregabalin 2019-0 No 75 mg = 1 Me [facility] 75 MG Oral 2-05 cap, PO, l Capsule 18:01: Bedtime, # [facility] [Lyrica] 00 30 cap, 3 Refill(s) pregabalin 2019-0 No 75 mg = 1 [facility] 75 MG Oral 2-05 cap, PO, l Capsule 18:01: Bedtime, # [facility] [Lyrica] 00 30 cap, 3 Refill(s) pregabalin 2019-0 No 75 mg = 1 Me [facility] 75 MG Oral 2-05 cap, PO, l Capsule 18:01: Bedtime, # [facility] [Lyrica] 00 30 cap, 3 Refill(s) pregabalin 2019-0 No 75 mg = 1 Me [facility] 75 MG Oral 2-05 cap, PO, l Capsule 18:01: Bedtime, # [facility] [Lyrica] 00 30 cap, 3 Refill(s) pregabalin 2019-0 No 75 mg = 1 Me [facility] 75 MG Oral 2-05 cap, PO, l Capsule 18:01: Bedtime, # [facility] [Lyrica] 00 30 cap, 3 Refill(s) pregabalin 2019-0 No 75 mg = 1 Me [facility] 75 MG Oral 2-05 cap, PO, l Capsule 18:01: Bedtime, # [facility] [Lyrica] 00 30 cap, 3 Refill(s) pregabalin 2019-0 No 75 mg = 1 Me [facility] 75 MG Oral 2-05 cap, PO, l Capsule 18:01: Bedtime, # [facility] [Lyrica] 00 30 cap, 3 Refill(s) pregabalin No 75 mg = 1 Me moria 75 MG Oral 2-05 cap, PO, l Capsule 18:01: Bedtime, # [facility] [Lyrica] 00 30 cap, 3 Refill(s) pregabalin 20190 No 75 mg = 1 Me moria 75 MG Oral 2-05 cap, PO, l Capsule 18:01: Bedtime, # [facility] [Lyrica] 00 30 cap, 3 Refill(s) pregabalin No 75 mg = 1 Me moria 75 MG Oral 2-05 cap, PO, l Capsule 18:01: Bedtime, # Herm meryl [Lyrica] 00 30 cap, 3 Refill(s) tafluprost 2018- Yes 1 drp, Memor ia 2-05 BOTH EYES, l 17:58: QPM, 0 [place] 00 Refill(s) tafluprost 0 Yes 1 drp, Mem[facility] ia 2-05 BOTH EYES, l 17:58: QPM, 0 [place] 00 Refill(s) tafluprost 0 Yes 1 drp, Memor ia 2-05 BOTH EYES, l 17:58: QPM, 0 [facility] 00 Refill(s) tafluprost 2018-0 Yes 1 drp, Memor ia 2-05 BOTH EYES, l 17:58: QPM, 0 [place] 00 Refill(s) tafluprost 2018-0 Yes 1 drp, Mem[facility] ia 2-05 BOTH EYES, l 17:58: QPM, 0 [place] 00 Refill(s) tafluprost 2018-0 Yes 1 drp, Mem[facility] ia 2-05 BOTH EYES, l 17:58: QPM, 0 [place] 00 Refill(s) tafluprost 2018-0 Yes 1 drp, Memor ia 2-05 BOTH EYES, l 17:58: QPM, 0 [place] 00 Refill(s) tafluprost 2018-0 Yes 1 drp, Mem[facility] ia 2-05 BOTH EYES, l 17:58: QPM, 0 [place] 00 Refill(s) tafluprost 2018-0 Yes 1 drp, Memor ia 2-05 BOTH EYES, l 17:58: QPM, 0 [place] 00 Refill(s) tafluprost 2018-0 Yes 1 drp, Memor ia 2-05 BOTH EYES, l 17:58: QPM, 0 [place] 00 Refill(s) tafluprost 2018-0 Yes 1 drp, Mem[facility] ia 2-05 BOTH EYES, l 17:58: QPM, 0 [place] 00 Refill(s) tafluprost 2018-0 Yes 1 drp, [facility] 2-05 BOTH EYES, l 17:58: QPM, 0 [place] 00 Refill(s) tafluprost 0 Yes 1 drp, Mem[facility] ia 2-05 BOTH EYES, l 17:58: QPM, 0 [facility] 00 Refill(s) tafluprost 0 Yes 1 drp, Memor ia 2-05 BOTH EYES, l 17:58: QPM, 0 [place] 00 Refill(s) tafluprost 0 Yes 1 drp, Memor ia 2-05 BOTH EYES, l 17:58: QPM, 0 [place] 00 Refill(s) tafluprost Yes 1 drp, Memor ia 2-05 BOTH EYES, l 17:58: QPM, 0 [place] 00 Refill(s) tafluprost 0 Yes 1 drp, [facility] ia 2-05 BOTH EYES, l 17:58: QPM, 0 [place] 00 Refill(s) Hydrochloro Yes 12.5 mg, Me moria thiazide 2-05 PO, Daily, l 17:18: 0 [place] 00 Refill(s) Hyoscyamine No 0 Memori a 2-05 Refill(s) l 17:18: [place] 00 hyoscyamine Yes 0.125 mg = Memoria 0.125 mg 2-05 1 tab, PO, l oral tablet 17:18: PRN, PRN [facility] 00 spasm, # 40 tab, 0 Refill(s) 12 HR Yes 1 drp, Memoria Timolol 5 2-05 BOTH EYES, l MG/ML 17:18: BID, 0 [facility] 00 Refill(s) Solution [Timoptic] Colistin Yes 0 Memoria 2-05 Refill(s) l 17:18: [place] 00 gabapentin No 300 mg = 1 M emoria 300 MG Oral 2-05 cap, PO, l Capsule 17:18: Bedtime, 0 [facility] 00 Refill(s) 12 HR Yes 1 drp, Memoria Timolol 5 2-05 BOTH EYES, l MG/ML 17:18: BID, 0 [place] Ophthalmic 00 Refill(s) Solution [Timoptic] Colistin Yes 0 Memoria 2-05 Refill(s) l 17:18: [place] 00 gabapentin No 300 mg = 1 [...] # 40 tab, 0 Refill(s) 12 HR Yes 1 drp, Memoria [...] thiazide 2-05 PO, Daily, l 17:18: 0 [place] 00 Refill(s) Hyoscyamine No 0 Memori a 2-05 Refill(s) l 17:18: [place] 00 hyoscyamine Yes 0.125 mg = Memoria 0.125 mg 2-05 1 tab, PO, l oral tablet 17:18: PRN, PRN [facility] 00 spasm, # 40 tab, 0 Refill(s) 12 HR 2019-0 Yes 1 drp, [facility]oria Timolol 5 2-05 BOTH EYES, l MG/ML 17:18: BID, 0 [facility] 00 Refill(s) Solution [Timoptic] Colistin Yes 0 [facility] 2-05 Refill(s) l 17:18: [facility] 00 gabapentin 0 No 300 mg = 1 M emoria 300 MG Oral 2-05 cap, PO, l Capsule 17:18: Bedtime, 0 [facility] 00 Refill(s) Hydrochloro 0 Yes 12.5 mg, Me moria thiazide 2-05 PO, Daily, l 17:18: 0 [facility] 00 Refill(s) Hyoscyamine 0 No 0 Memori a 2-05 Refill(s) l 17:18: [place] 00 hyoscyamine Yes 0.125 mg = Memoria 0.125 mg 2-05 1 tab, PO, l oral tablet 17:18: PRN, PRN [facility] 00 spasm, # 40 tab, 0 Refill(s) 12 HR Yes 1 drp, [facility]oria Timolol 5 2-05 BOTH EYES, l MG/ML 17:18: BID, 0 [facility] 00 Refill(s) Solution [Timoptic] Colistin Yes 0 [facility] 2-05 Refill(s) l 17:18: [place] 00 gabapentin 0 No 300 mg = 1 M emoria 300 MG Oral 2-05 cap, PO, l Capsule 17:18: Bedtime, 0 [facility] 00 Refill(s) Hydrochloro 0 Yes 12.5 mg, Me moria thiazide 2-05 PO, Daily, l 17:18: 0 [place] 00 Refill(s) Hyoscyamine 0 No 0 Memori a 2-05 Refill(s) l 17:18: [facility] 00 hyoscyamine 0 Yes 0.125 mg = Memoria 0.125 mg 2-05 1 tab, PO, l oral tablet 17:18: PRN, PRN [facility] 00 spasm, # 40 tab, 0 Refill(s) 12 HR 0 Yes 1 drp, [facility]oria Timolol 5 2-05 BOTH EYES, l MG/ML 17:18: BID, 0 [place] Ophthalmic 00 Refill(s) Solution [Timoptic] Colistin 2019-0 Yes 0 Memoria 2-05 Refill(s) l 17:18: [place] 00 gabapentin 0 No 300 mg = 1 M emoria 300 MG Oral 2-05 cap, PO, l Capsule 17:18: Bedtime, 0 [facility] 00 Refill(s) Hydrochloro 0 Yes 12.5 mg, Me moria thiazide 2-05 PO, Daily, l 17:18: 0 [place] 00 Refill(s) Hyoscyamine No 0 Memori a 2-05 Refill(s) l 17:18: [place] 00 hyoscyamine Yes 0.125 mg = Memoria 0.125 mg 2-05 1 tab, PO, l oral tablet 17:18: PRN, PRN [facility] 00 spasm, # 40 tab, 0 Refill(s) 12 HR Yes 1 drp, [facility]oria Timolol 5 2-05 BOTH EYES, l MG/ML 17:18: BID, 0 [facility] 00 Refill(s) Solution [Timoptic] Colistin Yes 0 [facility]oria 2-05 Refill(s) l 17:18: [place] 00 gabapentin No 300 mg = 1 [...] # 40 tab, 0 Refill(s) 12 HR 0 Yes 1 drp, [facility]oria Timolol 5 2-05 BOTH EYES, l MG/ML 17:18: BID, 0 [facility] 00 Refill(s) Solution [Timoptic] Colistin 0 Yes 0 [facility]oria 2-05 Refill(s) l 17:18: [place] 00 gabapentin 0 No 300 mg = 1 M emoria 300 MG Oral 2-05 cap, PO, l Capsule 17:18: Bedtime, 0 [facility] 00 Refill(s) Hydrochloro Yes 12.5 mg, Me moria thiazide 2-05 PO, Daily, l 17:18: 0 [place] 00 Refill(s) Hyoscyamine 0 No 0 Memori a 2-05 Refill(s) l 17:18: [place] 00 hyoscyamine Yes 0.125 mg = Memoria 0.125 mg 2-05 1 tab, PO, l oral tablet 17:18: PRN, PRN [facility] 00 spasm, # 40 tab, 0 Refill(s) 12 HR Yes 1 drp, [facility]oria Timolol 5 2-05 BOTH EYES, l MG/ML 17:18: BID, 0 [place] Ophthalmic 00 Refill(s) Solution [Timoptic] Colistin Yes 0 Memoria 2-05 Refill(s) l 17:18: [place] gabapentin No 300 mg = 1 M emoria 300 MG Oral 2-05 cap, PO, l Capsule 17:18: Bedtime, 0 [facility] 00 Refill(s) Hydrochloro Yes 12.5 mg, Me moria thiazide 2-05 PO, Daily, l 17:18: 0 [place] 00 Refill(s) Hyoscyamine No 0 Memori a 2-05 Refill(s) l 17:18: [place] 00 hyoscyamine Yes 0.125 mg = Memoria 0.125 mg 2-05 1 tab, PO, l oral tablet 17:18: PRN, PRN [facility] 00 spasm, # 40 tab, 0 Refill(s) 12 HR Yes 1 drp, Memoria Timolol 5 2-05 BOTH EYES, l MG/ML 17:18: BID, 0 [facility] 00 Refill(s) Solution [Timoptic] Colistin Yes 0 Memoria 2-05 Refill(s) l 17:18: [place] 00 gabapentin 0 No 300 mg = 1 M emoria 300 MG Oral 2-05 cap, PO, l Capsule 17:18: Bedtime, 0 [facility] 00 Refill(s) Hydrochloro Yes 12.5 mg, Me moria thiazide 2-05 PO, Daily, l 17:18: 0 [place] 00 Refill(s) Hyoscyamine No 0 Memori a 2-05 Refill(s) l 17:18: [place] 00 hyoscyamine Yes 0.125 mg = Memoria 0.125 mg 2-05 1 tab, PO, l oral tablet 17:18: PRN, PRN [facility] 00 spasm, # 40 tab, 0 Refill(s) 12 HR 0 Yes 1 drp, Memoria Timolol 5 2-05 BOTH EYES, l MG/ML 17:18: BID, 0 [place] Ophthalmic 00 Refill(s) Solution [Timoptic] Colistin Yes 0 Memoria 2-05 Refill(s) l 17:18: [place] 00 gabapentin 0 No 300 mg = 1 M emoria 300 MG Oral 2-05 cap, PO, l Capsule 17:18: Bedtime, 0 [facility] 00 Refill(s) Hydrochloro Yes 12.5 mg, Me moria thiazide 2-05 PO, Daily, l 17:18: 0 [place] 00 Refill(s) Hyoscyamine No 0 Memori a 2-05 Refill(s) l 17:18: [place] 00 hyoscyamine Yes 0.125 mg = Memoria 0.125 mg 2-05 1 tab, PO, l oral tablet 17:18: PRN, PRN [place] [facility] 00 spasm, # 40 tab, 0 Refill(s) 12 HR Yes 1 drp, Memoria Timolol 5 2-05 BOTH EYES, l MG/ML 17:18: BID, 0 [place] Ophthalmic 00 Refill(s) Solution [Timoptic] Colistin Yes 0 Memoria 2-05 Refill(s) l 17:18: [place] 00 gabapentin 0 No 300 mg = 1 M emoria 300 MG Oral 2-05 cap, PO, l Capsule 17:18: Bedtime, 0 [facility] 00 Refill(s) Hydrochloro 0 Yes 12.5 mg, Me moria thiazide 2-05 PO, Daily, l 17:18: 0 [place] 00 Refill(s) Hyoscyamine 0 No 0 Memori a 2-05 Refill(s) l 17:18: [place] 00 hyoscyamine Yes 0.125 mg = [facility] 0.125 mg 2-05 1 tab, PO, l oral tablet 17:18: PRN, PRN [facility] 00 spasm, # 40 tab, 0 Refill(s) 12 HR 0 Yes 1 drp, [facility]oria Timolol 5 2-05 BOTH EYES, l MG/ML 17:18: BID, 0 [facility] 00 Refill(s) Solution [Timoptic] Colistin Yes 0 [facility]oria 2-05 Refill(s) l 17:18: [place] 00 gabapentin 0 No 300 mg = 1 M emoria 300 MG Oral 2-05 cap, PO, l Capsule 17:18: Bedtime, 0 [facility] Refill(s) Hydrochloro Yes 12.5 mg, Me moria thiazide 2-05 PO, Daily, l 17:18: 0 [place] 00 Refill(s) Hyoscyamine No 0 Memori a 2-05 Refill(s) l 17:18: [place] 00 hyoscyamine Yes 0.125 mg = [facility] 0.125 mg 2-05 1 tab, PO, l oral tablet 17:18: PRN, PRN rmann 00 spasm, # 40 tab, 0 Refill(s) 12 HR Yes 1 drp, [facility]oria Timolol 5 2-05 BOTH EYES, l MG/ML 17:18: BID, 0 [place] [facility] 00 Refill(s) Solution [Timoptic] Colistin Yes 0 [facility] 2-05 Refill(s) l 17:18: [place] 00 gabapentin 0 No 300 mg = 1 M emoria 300 MG Oral 2-05 cap, PO, l Capsule 17:18: Bedtime, 0 [facility] 00 Refill(s) Hydrochloro 2018-0 Yes 12.5 mg, Me moria thiazide 2-05 PO, Daily, l 17:18: 0 [place] 00 Refill(s) Hyoscyamine No 0 Memori a 2-05 Refill(s) l 17:18: [place] 00 hyoscyamine Yes 0.125 mg = [facility] 0.125 mg 2-05 1 tab, PO, l oral tablet 17:18: PRN, PRN [place] 00 spasm, # 40 tab, 0 Refill(s) 12 HR 0 Yes 1 drp, Memoria Timolol 5 2-05 BOTH EYES, l MG/ML 17:18: BID, 0 [place] Ophthalmic 00 Refill(s) Solution [Timoptic] Colistin Yes 0 [facility] 2-05 Refill(s) l 17:18: [place] 00 gabapentin 2018-0 No 300 mg = 1 M emoria [...] # 40 tab, 0 Refill(s) 12 HR 2018- Yes 1 drp, Memoria Timolol 5 2-05 BOTH EYES, l MG/ML 17:18: BID, 0 [place] Ophthalmic 00 Refill(s) Solution [Timoptic] Colistin Yes 0 [facility]oria 2-05 Refill(s) l 17:18: [place] 00 gabapentin 2018-0 No 300 mg = 1 M emoria 300 MG Oral 2-05 cap, PO, l Capsule 17:18: Bedtime, 0 [facility] 00 Refill(s) Hydrochloro Yes 12.5 mg, Me moria thiazide 2-05 PO, Daily, l 17:18: 0 [place] 00 Refill(s) Hyoscyamine 0 No 0 Memori a 2-05 Refill(s) l 17:18: [place] 00 hyoscyamine 0 Yes 0.125 mg = [facility] 0.125 mg 2-05 1 tab, PO, l oral tablet 17:18: PRN, PRN [facility] 00 spasm, # 40 tab, 0 Refill(s) 12 HR 2019-0 Yes 1 drp, [facility]oria Timolol 5 2-05 BOTH EYES, l MG/ML 17:18: BID, 0 [place] 00 Refill(s) Solution [Timoptic] Colistin Yes 0 [facility] 2-05 Refill(s) l 17:18: [place] 00 gabapentin No 300 mg = 1 M emoria 300 MG Oral 2-05 cap, PO, l Capsule 17:18: Bedtime, 0 [facility] 00 Refill(s) Hydrochloro Yes 12.5 mg, Me mor[facility] thiazide 2-05 PO, Daily, l 17:18: 0 [place] 00 Refill(s) Hyoscyamine No 0 Memori a 2-05 Refill(s) l 17:18: [place] 00 hyoscyamine Yes 0.125 mg = Memoria [...] 00 l injection hyoscyamine 2017-02 Yes DISSOLVE [facility] (LEVSIN) 1-15 1-2 st 0.125 mg SL 00:00: TABLETS [facility] tablet 00 UNDER THE l TONGUE EVERY 4-6 HOURS NEEDED. hyoscyamine 2017-02 Yes DISSOLVE [facility] (LEVSIN) 1-15 1-2 st 0.125 mg SL 00:00: TABLETS [facility] tablet 00 UNDER THE l TONGUE EVERY 4-6 HOURS NEEDED. hyoscyamine 2017-02 Yes DISSOLVE [facility] (LEVSIN) 1-15 1-2 st 0.125 mg SL 00:00: TABLETS [...] [facility] (ZIOPTAN, 08:41: [facility] PF, OPHT) [facility] Missing or 2014-[address] [facility] Non-Formula 1-04 [facility] 08:[facility]: [facility] Medication [facility] TAFLUPROST/ 2014-02 Yes Apply to [facility] 1-04 eye(s[facility] (ZIOPTAN, 08:41: Medical PF, OPHT) [facility] Missing or 2014-[address] [facility] [address] Non-Formula 1-04 [facility] 08:[facility]: [facility] Medication [facility] TAFLUPROST/ 2014-02 Yes Apply to [facility] 1-04 eye(s). [facility] (RENETTAOPTAN, 08:41: Medical PF, OPHT) [facility] Missing or 2014- Yes [facility]-Formula 1-04 [facility] 08:[facility]: [facility] Medication [facility] TAFLUPROST/ 2014-02 Yes Apply to [facility] 1-04 eye(s[facility] (KTAN, 08:41: Medical PF, OPHT) [facility] Missing or 2014- [facility] Non-Formula 1-04 [facility] 08:[facility]: [facility] Medication [facility] TAFLUPROST/ 2014-02 Yes Apply to [facility] 1-04 eye(s). [facility] (KTAN, 08:41: Medical PF, OPHT) [facility] Missing or 2014- Yes [facility]-Formula 1-04 [facility] 08:41: [facility] Medication [facility] TAFLUPROST/ 2014-02 Yes Apply to [facility] 1-04 eye(s). [facility] (FATIMAH, 08:41: Medical PF, OPHT) [facility] Missing or 2014-[address] [facility] Non-Formula 1-04 [facility] 08:41: [facility] Medication [facility] TAFLUPROST/ 2014-02 Yes Apply to [facility] 1-04 eye(s). [facility] (KTAN, 08:41: Medical PF, OPHT) [facility] Missing or 2014- [facility] Non-Formula 1-04 [facility] 08:41: [facility] Medication [facility] TAFLUPROST/ 2014-02 Yes Apply to [facility] 1-04 eye(s). [facility] (KTAN, 08:41: Medical PF, OPHT) [facility] Missing or 2014- [facility] Non-Formula 1-04 [facility] 08:41: [facility] Medication [facility] TAFLUPROST/ 2014-02 Yes Apply to [facility] 1-04 eye(s). [facility] (RENETTAOPTAN, 08:41: Medical PF, OPHT) [facility] Missing or 2014-[address] [facility] [address] Non-Formula 1-04 [facility] 08:41: [facility] Medication [facility] TAFLUPROST/ 2014-02 Yes Apply to [facility] 1-04 eye(s). [facility] (ZIOPTAN, 08:41: Medical PF, OPHT) [facility] Missing or 2014-[address] [address] Non-Formula 1-04 [facility] 08:41: Medical Medication 44 [place] magnesium 2014-02 Yes Take by [facility] Tab 1-04 mouth. [facility] tablet 08:41: Medical 43 [place] cetirizine 2014-02 Yes 10mg QD Take [address] (ZYRTEC) 10 1-04 by mouth [facility] MG tablet 08:41: daily. Medica l 43 [place] brimonidine 2014-02 Yes 1[drp] Q.[id number] [address] [facility] (ALPHAGAN) 1-04 [id number] (three) [facility] 0[facility] % 08:41: 3D times Medical ophthalmic 43 daily. [place] solution ascorbic 2014-02 Yes 1000mg QD Take 1,[address] acid 1-04 mg by [facility] (VITAMIN C) 08:41: mouth Medic al 1000 MG 43 daily. [place] tablet magnesium 2014-02 Yes Take by [facility] mg Tab 1-04 [facility]. [facility] tablet 08:41: Medical 43 [place] cetirizine 2014-02 Yes 10mg QD Take [address] (ZYRTEC) 10 1-04 by mouth [facility] MG tablet 08:41: daily. Medica l 43 [place] brimonidine 2014-02 Yes 1[drp] Q.[id number] [address] [facility] (ALPHAG[place]) 1-04 [id number] (three) [facility] 0[facility] % 08:41: 3D times Medical ophthalmic 43 daily. [place] solution ascorbic 2014-02 Yes 1000mg QD Take 1,[address] acid 1-04 mg by [facility] (VITAMIN C) 08:41: mouth Medic al 1000 MG 43 daily. [place] tablet magnesium 2014-02 Yes Take by [facility] mg Tab 1-04 [facility]. [facility] tablet 08:41: Medical 43 [place] cetirizine 2014-02 Yes 10mg QD Take [address] (ZYRTEC) 10 1-04 by mouth [facility] MG tablet 08:41: daily. Medica l 43 [place] brimonidine 2014-02 Yes 1[drp] Q.[id number] [address] [facility] (ALPHAG[place]) 1-04 [id number] (three) [facility] 0[facility] % 08:41: 3D times Medical ophthalmic 43 daily. [place] solution ascorbic 2014-02 Yes 1000mg QD Take 1,[address] acid 1-04 mg by [facility] (VITAMIN C) 08:41: mouth Medic al 1000 MG 43 daily. [place] tablet magnesium 2014-02 Yes Take by [facility] mg Tab 1-04 [facility]. [facility] tablet 08:41: Medical 43 [place] cetirizine 2014-02 Yes 10mg QD Take [address] (ZYRTEC) 10 1-04 by mouth [facility] MG tablet 08:41: daily. Medica l 43 [place] brimonidine 2014-02 Yes 1[drp] Q.[id number] [address] [facility] (ALPHAG[place]) 1-04 [id number] (three) [facility] 0[facility] % 08:41: 3D times Medical ophthalmic 43 daily. [place] solution ascorbic 2014-02 Yes 1000mg QD Take 1,[address] acid 1-04 mg by [facility] (VITAMIN C) 08:41: mouth Medic al 1000 MG 43 daily. [place] tablet magnesium 2014-02 Yes Take by [facility] mg Tab 1-04 mouth. [facility] tablet 08:41: Medical 43 [place] cetirizine 2014-02 Yes 10mg QD Take [address] (ZYRTEC) 10 1-04 by mouth [facility] MG tablet 08:41: daily. Medica l 43 [place] brimonidine 2014-02 Yes 1[drp] Q.[id number] [address] [facility] ([place]) 1-04 [id number] (three) [facility] 0[facility] % 08:41: 3D times Medical ophthalmic 43 daily. [place] solution ascorbic 2014-02 Yes 1000mg QD Take 1,[address] acid 1-04 mg by [facility] (VITAMIN C) 08:41: mouth Medic al 1000 MG 43 daily. [place] tablet magnesium 2014-02 Yes Take by [facility] mg Tab 1-04 [facility]. [facility] tablet 08:41: Medical 43 [place] cetirizine 2014-02 Yes 10mg QD Take [address] (ZYRTEC) 10 1-04 by mouth [facility] MG tablet 08:41: daily. Medica l 43 [place] brimonidine 2014-02 Yes 1[drp] Q.[id number] [address] [facility] ([place]) 1-04 [id number] (three) [facility] 0[facility] % 08:41: 3D times Medical ophthalmic 43 daily. [place] solution ascorbic 2014-02 Yes 1000mg QD Take 1,[address] acid 1-04 mg by [facility] (VITAMIN C) 08:41: mouth Medic al 1000 MG 43 daily. [place] tablet magnesium 2014-02 Yes Take by [facility] mg Tab 1-04 mouth. [facility] tablet 08:41: Medical 43 [place] cetirizine 2014-02 Yes 10mg QD Take [address] (ZYRTEC) 10 1-04 by mouth [facility] MG tablet 08:41: daily. Medica l 43 [place] brimonidine 2014-02 Yes 1[drp] Q.[id number] [address] [facility] ([place]) 1-04 [id number] (three) [facility] 0[facility] % 08:41: 3D times Medical ophthalmic 43 daily. [place] solution ascorbic 2014-02 Yes 1000mg QD Take 1,[address] acid 1-04 mg by [facility] (VITAMIN C) 08:41: mouth Medic al 1000 MG 43 daily. [place] tablet magnesium 2014-02 Yes Take by [facility] mg Tab 1-04 mouth. [facility] tablet 08:41: Medical 43 [place] cetirizine 2014-02 Yes 10mg QD Take [address] (ZYRTEC) 10 1-04 by mouth [facility] MG tablet 08:41: daily. Medica l 43 [place] brimonidine 2014-02 Yes 1[drp] Q.[id number] [address] [facility] ([place]) 1-04 [id number] (three) [facility] 0[facility] % 08:41: 3D times Medical ophthalmic 43 daily. [place] solution ascorbic 2014-02 Yes 1000mg QD Take 1,[address] acid 1-04 mg by [facility] (VITAMIN C) 08:41: mouth Medic al 1000 MG 43 daily. [place] tablet magnesium 2014-02 Yes Take by [facility] mg Tab 1-04 mouth. [facility] tablet 08:41: Medical 43 [place] cetirizine 2014-02 Yes 10mg QD Take [address] (ZYRTEC) 10 1-04 by mouth [facility] MG tablet 08:41: daily. Medica l 43 [place] brimonidine 2014-02 Yes 1[drp] Q.[id number] [address] [facility] ([place]) 1-04 [id number] (three) [facility] 0[facility] % 08:41: 3D times Medical ophthalmic 43 daily. [place] solution ascorbic 2014-02 Yes 1000mg QD Take 1,[address] acid 1-04 mg by [facility] (VITAMIN C) 08:41: mouth Medic al 1000 MG 43 daily. [place] tablet cetirizine 2014-02 Yes 10mg QD Take [address] (ZYRTEC) 10 104 by mouth [facility] MG tablet 08:41: daily. Medica l 43 [place] brimonidine 2014-02 Yes 1[drp] [id number] [address] [facility] (ALPHAGAN) 1-04 [id number] (three) [facility] 08:41: 3D times Medical ophthalmic 43 daily. [place] solution ascorbic 2014-02 Yes 1000mg QD Take 1,[address] acid 1-04 mg by [facility] (VITAMIN C) 08:41: mouth Medic al 1000 MG 43 daily. [place] tablet magnesium 2014-02 Yes Take by [facility] Tab 104 [facility]. [facility] tablet 08:41: Medical 43 [place] Immunizations Ordered Filled Immunization Date Status Comments [facility] e Immunization Name Name SARS-COV-2 COVID-19 2020-04-15 Completed Unive rs[facility] of PFIZER VACCINE 00:00:00 [facility] SARS-COV-2 COVID-19 2020-04-15 Completed Unive rsity of PFIZER VACCINE 00:00:00 [facility] SARS-COV-2 COVID-19 2020-04-15 Completed Unive rsity of PFIZER VACCINE 00:00:00 [facility] SARS-COV-2 COVID-19 2020-04-15 Completed Unive rsity of PFIZER VACCINE 00:00:00 [facility] SARS-COV-2 COVID-19 2020-04-15 Completed Unive rsity of PFIZER VACCINE 00:00:00 [facility] SARS-COV-2 COVID-19 2020-04-15 Completed Unive rsity of PFIZER VACCINE 00:00:00 [facility] SARS-COV-2 COVID-19 2020-04-15 Completed [facility] of PFIZER VACCINE 00:00:00 [facility] SARS-COV-2 COVID-19 2020-04-15 Completed Unive rs[facility] of PFIZER VACCINE 00:00:00 [facility] SARS-COV-2 COVID-19 2020-04-15 Completed Unive rsity of PFIZER VACCINE 00:00:00 [facility] SARS-COV-2 COVID-19 2020-04-15 Completed Unive rsity of PFIZER VACCINE 00:00:00 [facility] SARS-COV-2 COVID-19 2020-04-15 Completed Unive rsity of PFIZER VACCINE 00:00:00 [facility] SARS-COV-2 COVID-19 2020-04-15 Completed [facility]ive rsity of PFIZER VACCINE 00:00:00 [facility] SARS-COV-2 COVID-19 2020-04-15 Completed Unive rsity of PFIZER VACCINE 00:00:00 [facility] SARS-COV-2 COVID-19 2020-04-15 Completed Unive rsity of PFIZER VACCINE 00:00:00 [facility] SARS-COV-2 COVID-19 2020-04-15 Completed Unive rsity of PFIZER VACCINE 00:00:00 [facility] SARS-COV-2 COVID-19 2020-04-15 Completed Unive rsity of PFIZER VACCINE 00:00:00 [facility] SARS-COV-2 COVID-19 2020-04-15 Completed Unive rsity of PFIZER VACCINE 00:00:00 [facility] SARS-COV-2 COVID-19 2020-04-15 Completed Unive rsity of PFIZER VACCINE 00:00:00 [facility] SARS-COV-2 COVID-19 2020-04-15 Completed Unive rsity of PFIZER VACCINE 00:00:00 [facility] SARS-COV-2 COVID-19 2020-04-15 Completed Unive rsity of PFIZER VACCINE 00:00:00 [facility] SARS-COV-2 COVID-19 2020-04-15 Completed Unive rsity of PFIZER VACCINE 00:00:00 [facility] SARS-COV-2 COVID-19 2020-04-15 Completed Unive rsity of PFIZER VACCINE 00:00:00 [facility] SARS-COV-2 COVID-19 2020-04-15 Completed Unive rsity of PFIZER VACCINE 00:00:00 [facility] SARS-COV-2 COVID-19 2020-04-15 Completed Unive rsity of PFIZER VACCINE 00:00:00 [facility] SARS-COV-2 COVID-19 2020-04-15 Completed Unive rsity of PFIZER VACCINE 00:00:00 [facility] SARS-COV-2 COVID-19 2020-04-15 Completed Unive rsity of PFIZER VACCINE 00:00:00 [facility] SARS-COV-2 COVID-19 2020-04-15 Completed Unive rsity of PFIZER VACCINE 00:00:00 [facility] SARS-COV-2 COVID-19 2020-04-15 Completed Unive rsity of PFIZER VACCINE 00:00:00 [facility] SARS-COV-2 COVID-19 2020-04-15 Completed Unive rsity of PFIZER VACCINE 00:00:00 [facility] SARS-COV-2 COVID-19 2020-04-15 Completed Unive rsity of PFIZER VACCINE 00:00:00 [facility] SARS-COV-2 COVID-19 2020-04-15 Completed Unive rsity of PFIZER VACCINE 00:00:00 [facility] SARS-COV-2 COVID-19 2020-04-15 Completed Unive rsity of PFIZER VACCINE 00:00:00 [facility] SARS-COV-2 COVID-19 2020-04-15 Completed Unive rsity of PFIZER VACCINE 00:00:00 [facility] SARS-COV-2 COVID-19 2020-04-15 Completed Unive rsity of PFIZER VACCINE 00:00:00 [facility] SARS-COV-2 COVID-19 2020-04-15 Completed Unive rsity of PFIZER VACCINE 00:00:00 [facility] SARS-COV-2 COVID-19 2020-04-15 Completed Unive rsity of PFIZER VACCINE 00:00:00 [facility] SARS-COV-2 COVID-19 2020-04-15 Completed Unive rsity of PFIZER VACCINE 00:00:00 [facility] SARS-COV-2 COVID-19 2020-04-15 Completed Unive rsity of PFIZER VACCINE 00:00:00 [facility] SARS-COV-2 COVID-19 2020-04-15 Completed Unive rsity of PFIZER VACCINE 00:00:00 [facility] PFIZER COVID-19 2020-04-15 Completed [facility] VACC[facility]ATION 00:00:00 Hospital PFIZER COVID-19 2020-04-15 Completed [facility] VACCINATION 00:00:00 [facility] PFIZER COVID-19 2020-04-15 Completed [facility]RNA VACCINATION 00:00:00 [facility] SARS-COV-2 COVID-19 2020-03-25 Completed Unive rsity of PFIZER VACCINE 00:00:00 [facility] SARS-COV-2 COVID-19 2020-03-25 Completed Unive rsity of PFIZER VACCINE 00:00:00 [facility] SARS-COV-2 COVID-19 2020-03-25 Completed Unive rsity of PFIZER VACCINE 00:00:00 [facility] SARS-COV-2 COVID-19 2020-03-25 Completed Unive rsity of PFIZER VACCINE 00:00:00 [facility] SARS-COV-2 COVID-19 2020-03-25 Completed Unive rsity of PFIZER VACCINE 00:00:00 [facility] SARS-COV-2 COVID-19 2020-03-25 Completed [facility]ive rsity of PFIZER VACCINE 00:00:00 [facility] SARS-COV-2 COVID-19 2020-03-25 Completed [facility]ive rsity of PFIZER VACCINE 00:00:00 [facility] SARS-COV-2 COVID-19 2020-03-25 Completed [facility]ive rsity of PFIZER VACCINE 00:00:00 [facility] SARS-COV-2 COVID-19 2020-03-25 Completed [facility]ive rsity of PFIZER VACCINE 00:00:00 [facility] SARS-COV-2 COVID-19 2020-03-25 Completed [facility]ive rsity of PFIZER VACCINE 00:00:00 [facility] SARS-COV-2 COVID-19 2020-03-25 Completed [facility] rsity of PFIZER VACCINE 00:00:00 [facility] SARS-COV-2 COVID-19 2020-03-25 Completed [facility]ive rsity of PFIZER VACCINE 00:00:00 [facility] SARS-COV-2 COVID-19 2020-03-25 Completed [facility]ity of PFIZER VACCINE 00:00:00 [facility] SARS-COV-2 COVID-19 2020-03-25 Completed [facility]ity of PFIZER VACCINE 00:00:00 [facility] SARS-COV-2 COVID-19 2020-03-25 Completed Unive rsity of PFIZER VACCINE 00:00:00 [facility] SARS-COV-2 COVID-19 2020-03-25 Completed Unive rsity of PFIZER VACCINE 00:00:00 [facility] SARS-COV-2 COVID-19 2020-03-25 Completed Unive rsity of PFIZER VACCINE 00:00:00 [facility] SARS-COV-2 COVID-19 2020-03-25 Completed Unive rsity of PFIZER VACCINE 00:00:00 [facility] SARS-COV-2 COVID-19 2020-03-25 Completed Unive rsity of PFIZER VACCINE 00:00:00 [facility] SARS-COV-2 COVID-19 2020-03-25 Completed [facility]ive rsity of PFIZER VACCINE 00:00:00 [facility] SARS-COV-2 COVID-19 2020-03-25 Completed [facility]ive rsity of PFIZER VACCINE 00:00:00 [facility] SARS-COV-2 COVID-19 2020-03-25 Completed Unive rsity of PFIZER VACCINE 00:00:00 [facility] SARS-COV-2 COVID-19 2020-03-25 Completed Unive rsity of PFIZER VACCINE 00:00:00 [facility] SARS-COV-2 COVID-19 2020-03-25 Completed Unive rsity of PFIZER VACCINE 00:00:00 [facility] SARS-COV-2 COVID-19 2020-03-25 Completed Unive rsity of PFIZER VACCINE 00:00:00 [facility] SARS-COV-2 COVID-19 2020-03-25 Completed Unive rsity of PFIZER VACCINE 00:00:00 [facility] SARS-COV-2 COVID-19 2020-03-25 Completed [facility]ive rsity of PFIZER VACCINE 00:00:00 [facility] SARS-COV-2 COVID-19 2020-03-25 Completed [facility]ive rsity of PFIZER VACCINE 00:00:00 [facility] SARS-COV-2 COVID-19 2020-03-25 Completed [facility]ive rsity of PFIZER VACCINE 00:00:00 [facility] SARS-COV-2 COVID-19 2020-03-25 Completed [facility]ive rsity of PFIZER VACCINE 00:00:00 [facility] SARS-COV-2 COVID-19 2020-03-25 Completed [facility]ive rsity of PFIZER VACCINE 00:00:00 [facility] SARS-COV-2 COVID-19 2020-03-25 Completed [facility]ive rsity of PFIZER VACCINE 00:00:00 [facility] SARS-COV-2 COVID-19 2020-03-25 Completed [facility]ive rsity of PFIZER VACCINE 00:00:00 [facility] SARS-COV-2 COVID-19 2020-03-25 Completed [facility]ive rsity of PFIZER VACCINE 00:00:00 [facility] SARS-COV-2 COVID-19 2020-03-25 Completed [facility] of PFIZER VACCINE 00:00:00 [facility] SARS-COV-2 COVID-19 2020-03-25 Completed [facility]ity of PFIZER VACCINE 00:00:00 [facility] SARS-COV-2 COVID-19 2020-03-25 Completed [facility] of PFIZER VACCINE 00:00:00 [facility] SARS-COV-2 COVID-19 2020-03-25 Completed [facility]ity of PFIZER VACCINE 00:00:00 [facility] SARS-COV-2 COVID-19 2020-03-25 Completed [facility]ity of PFIZER VACCINE 00:00:00 [facility] PFIZER COVID-19 2020-03-25 Completed [facility] VACC[facility]ATION 00:00:00 Hospital PFIZER COVID-19 2020-03-25 Completed [facility] VACCINATION 00:00:00 Hospital PFIZER COVID-19 2020-03-25 Completed [facility] VACCINATION 00:00:00 Hospital H1n1 Vaccine 2009-01-27 Completed University o f 00:00:00 [facility] [place] H1n1 Vaccine 2009-01-27 Completed University o f 00:00:00 [facility] H1n1 Vaccine 2009-01-27 Completed University o f 00:00:00 [facility] H1n1 Vaccine 2009-01-27 Completed University o f 00:00:00 [facility] H1n1 Vaccine 2009-01-27 Completed [facility] 00:00:00 [facility] H1n1 Vaccine 2009-01-27 Completed [facility] o f 00:00:00 [facility] H1n1 Vaccine 2009-01-27 Completed University o f 00:00:00 [facility] H1n1 Vaccine 2009-01-27 Completed University o f 00:00:00 [facility] H1n1 Vaccine 2009-01-27 Completed [facility] o f 00:00:00 [facility] H1n1 Vaccine 2009-01-27 Completed [facility] o f 00:00:00 [facility] H1n1 Vaccine 2009-01-27 Completed University o f 00:00:00 [facility] H1n1 Vaccine 2009-01-27 Completed University o f 00:00:00 [facility] H1n1 Vaccine 2009-01-27 Completed University o f 00:00:00 [facility] H1n1 Vaccine 2009-01-27 Completed University o f 00:00:00 [facility] H1n1 Vaccine 2009-01-27 Completed [facility] o f 00:00:00 [facility] H1n1 Vaccine 2009-01-27 Completed University o f 00:00:00 [facility] H1n1 Vaccine 2009-01-27 Completed University o f 00:00:00 [facility] H1n1 Vaccine 2009-01-27 Completed University o f 00:00:00 [facility] H1n1 Vaccine 2009-01-27 Completed University o f 00:00:00 [facility] H1n1 Vaccine 2009-01-27 Completed University o f 00:00:00 [facility] H1n1 Vaccine 2009-01-27 Completed University o f 00:00:00 [facility] H1n1 Vaccine 2009-01-27 Completed University o f 00:00:00 [facility] H1n1 Vaccine 2009-01-27 Completed University o f 00:00:00 [facility] H1n1 Vaccine 2009-01-27 Completed University o f 00:00:00 [facility] H1n1 Vaccine 2009-01-27 Completed University o f 00:00:00 [facility] H1n1 Vaccine 2009-01-27 Completed University o f 00:00:00 [facility] H1n1 Vaccine 2009-01-27 Completed University o f 00:00:00 [facility] H1n1 Vaccine 2009-01-27 Completed University o f 00:00:00 [facility] H1n1 Vaccine 2009-01-27 Completed University o f 00:00:00 [facility] H1n1 Vaccine 2009-01-27 Completed University o f 00:00:00 [facility] H1n1 Vaccine 2009-01-27 Completed [facility] o f 00:00:00 [facility] H1n1 Vaccine 2009-01-27 Completed University o f 00:00:00 [facility] H1n1 Vaccine 2009-01-27 Completed University o f 00:00:00 [facility] H1n1 Vaccine 2009-01-27 Completed University o f 00:00:00 [facility] H1n1 Vaccine 2009-01-27 Completed University o f 00:00:00 [facility] H1n1 Vaccine 2009-01-27 Completed University o f 00:00:00 [facility] H1n1 Vaccine 2009-01-27 Completed University o f 00:00:00 [facility] H1n1 Vaccine 2009-01-27 Completed University o f 00:00:00 [facility] H1n1 Vaccine 2009-01-27 Completed University o f 00:00:00 [facility] Vital Signs Vital Name Observation Time Observation Value Comments Source Systolic blood 2022-10-11 18:26:00 155 mm[Hg] Univer sity of pressure [facility] Diastolic blood 2022-10-11 18:26:00 59 mm[Hg] Unive rsity of pressure [facility] Heart rate 2022-10-11 18:26:00 64 /min General acute hospital Respiratory rate 2022-10-11 18:26:00 18 /min [facility] Body height 2022-10-11 18:26:00 162.6 cm [facility] acute hospital Body weight 2022-10-11 18:26:00 53.978 kg General acute hospital BMI 2022-10-11 18:26:00 20.43 kg/m2 General acute hospital Oxygen saturation in 2022-10-11 18:26:00 96 /min [facility] Arterial blood by [facility] Pulse oximetry Branch Systolic blood 2022-09-18 18:10:00 166 mm[Hg] rechecked Univer sity of pressure [facility] Diastolic blood 2022-09-18 18:10:00 57 mm[Hg] rechecked Unive rsity of pressure [facility] Heart rate 2022-09-18 18:10:00 57 /min General acute hospital Body temperature 2022-09-18 18:07:00 [facility].44 [facility] 2022-09-18 18:07:00 18 /min Univ [facility] Body height 2022-09-18 18:07:00 162.6 cm [facility] Body weight 2022-09-18 18:07:00 53.57 kg [facility] BMI 2022-09-18 18:07:00 20.27 kg/m2 [facility] Oxygen saturation in 2022-09-18 18:07:00 98 /min r/a University of Arterial blood by [facility] vince Pulse oximetry Branch Systolic blood 2022-06-25 14:50:00 123 mm[Hg] Univer sity of pressure [facility] Diastolic blood 2022-06-25 14:50:00 64 mm[Hg] Unive rsity of pressure [facility] Heart rate 2022-06-25 14:50:00 65 /min [facility] Respiratory rate 2022-06-25 14:50:00 19 /min [facility] Body height 2022-06-25 14:50:00 162.6 cm [facility] Body weight 2022-06-25 14:50:00 53.978 kg [facility] BMI 2022-06-25 14:50:00 20.43 kg/m2 [facility] Oxygen saturation in 2022-06-25 14:50:00 96 /min University of Arterial blood by [facility] Pulse oxim[facility] Systolic blood 2022-05-22 18:41:00 181 mm[Hg] [facility] of pressure [facility] Diastolic blood 2022-05-22 18:41:00 77 mm[Hg] [facility] of pressure [facility] Heart rate 2022-05-22 18:41:00 62 /min [facility] Body temperature 2022-05-22 18:39:00 36.28 Azul [facility] Respiratory rate 2022-05-22 18:39:00 18 /min [facility] Body height 2022-05-22 18:39:00 162.6 cm [facility] Body weight 2022-05-22 18:39:00 52.935 kg [facility] BMI 2022-05-22 18:39:00 20.03 kg/m2 [facility] Oxygen saturation in 2022-05-22 18:39:00 98 /min r/a University of Arterial blood by [facility] Pulse oximetry Branch Systolic blood 2022-01-15 16:38:00 174 mm[Hg] Univer [facility]ity of pressure [facility] Diastolic blood 2022-01-15 16:38:00 68 mm[Hg] Unive rsity of pressure [facility] Heart rate 2022-01-15 16:38:00 59 /min [facility] Respiratory rate 2022-01-15 16:33:00 20 /min [facility] Body height 2022-01-15 16:33:00 162.6 cm [facility] Body weight 2022-01-15 16:33:00 53.071 kg [facility] BMI 2022-01-15 16:33:00 20.08 kg/m2 [facility] Systolic blood 2021-12-21 15:44:00 186 mm[Hg] [facility] Diastolic blood 2021-12-21 15:44:00 93 mm[Hg] [facility] Heart rate 2021-12-21 15:44:00 75 /min [facility] Body temperature 2021-12-21 15:44:00 37.06 Azul [facility] Respiratory rate 2021-12-21 15:44:00 18 /min [facility] Body height 2021-12-21 15:44:00 162.6 cm [facility] Body weight 2021-12-21 15:44:00 51.256 kg [facility] BMI 2021-12-21 15:44:00 19.40 kg/m2 [facility] Oxygen saturation in 2021-12-21 15:44:00 100 /min University of Arterial blood by [facility] Pulse oxim[facility] Branch Systolic blood 2021-12-20 17:19:44 168 mm[Hg] [facility] Diastolic blood 2021-12-20 17:19:44 61 mm[Hg] [facility] Heart rate 2021-12-20 17:19:44 64 /min [facility] Body temperature 2021-12-20 17:19:44 37.11 Azul [facility] Respiratory rate 2021-12-20 17:19:44 18 /min [facility] Oxygen saturation in 2021-12-20 17:19:44 97 /min University of Arterial blood by [facility] Pulse oximetry Branch Body weight 2021-12-20 15:10:00 51.256 kg [facility] BMI 2021-12-20 15:10:00 19.40 kg/m2 [facility] Systolic blood 2021-10-03 15:11:00 151 mm[Hg] [facility] Diastolic blood 2021-10-03 15:11:00 64 mm[Hg] [facility] Heart rate 2021-10-03 15:11:00 62 /min [facility] Oxygen saturation in 2021-10-03 15:11:00 98 /min University of Arterial blood by [facility] Pulse oximetry Branch Body height 2021-10-03 15:03:00 162.6 cm [facility] Body weight 2021-10-03 15:03:00 51.71 kg [facility] BMI 2021-10-03 15:03:00 19.57 kg/m2 [facility] Systolic (mm Hg) 2019-02-12 17:01:00 Jason rial [facility] Diastolic (mm Hg) 2019-02-12 17:01:00 Mem orial [facility] Heart Rate 2019-02-12 17:01:00 [facility] [place] Respitory Rate 2019-02-12 17:01:00 [facility] [place] Height 2019-02-12 17:01:00 162.56 cm [facility] Weight 2019-02-12 17:01:00 [facility] [place] BMI Calculated 2019-02-12 17:01:00 Memori al [facility] BMI Calculated 2018-07-01 15:56:00 [facility] [place] Height 2018-07-01 15:56:00 162.56 cm [facility] Weight 2018-07-01 15:56:00 [facility] Systolic (mm Hg) 2018-07-01 15:56:00 Jason rial [place] Diastolic (mm Hg) 2018-07-01 15:56:00 [place] orial [place] Respitory Rate 2018-07-01 15:56:00 Will al [facility] Heart Rate 2018-07-01 15:56:00 [facility] Systolic (mm Hg) 2018-04-01 17:16:00 Jason dominguezl [place] Diastolic (mm Hg) 2018-04-01 17:16:00 Mem orial [place] Heart Rate 2018-04-01 17:16:00 [facility] Respitory Rate 2018-04-01 17:16:00 Will rodriguez [facility] Height 2018-04-01 17:16:00 162.56 cm Marianne [place] Weight 2018-04-01 17:16:00 Marianne [place] BMI Calculated 2018-04-01 17:16:00 Will rodriguez Rick Procedures Procedure Date / Time Performing Clinician Source Performed RENAL ARTERY DUPLEX - BY 2022-09-26 14:41:10 Mario Gregory [facility] VASCULAR LAB [facility] SUPERIOR MESENTERIC 2022-09-26 14:30:00 Mario Gregory [facility] ARTERY DUPLEX - BY [facility] VASCULAR LAB ASSIGNMENT OF BENEFITS 2022-07-27 15:35:39 Doctor Unass[facility] [place] [facility] ASSIGNMENT OF BENEFITS 2022-06-25 14:12:29 Doctor Unassigned, [facility] [place] [facility] EXTERNAL PROVIDER - ADC 2022-05-25 05:01:00 [facility] ALPHA 1 ANTITRYPSIN 2022-05-22 19:28:00 Edwin Mackay [facility] IMMUNOGLOBULIN G A M 2022-05-22 19:28:00 Edwin Mackay [facility] PANEL [facility] CBC WITH DIFF 2022-05-22 19:28:00 Edwin Mackay [place] [facility] CD4/CD8 SUBSET ASSAY 2022-05-22 19:28:00 Edwin Mackay [facility] MISCELLANEOUS SEND OUT 2022-05-22 19:28:00 Edwin Mackay [facility] CD3 SUBSET ASSAY 2022-05-22 19:28:00 Edwin Mackay [facility] CD16+56 SUBSET ASSAY 2022-05-22 19:28:00 Ewdin Mackay [facility] CD19 SUBSET ASSAY 2022-05-22 19:28:00 Edwin Mackay [facility] DIPHTHERIA & TETANUS IGG 2022-05-22 19:28:00 Mackay [facility] AUTHORIZATION FOR RELEASE 2022-02-02 06:01:00 Doctor Mynor, [facility] CONSENT/REFUSAL FOR 2021-12-21 15:39:02 Doctor Mynor [facility] DIAGNOSIS AND TREATMENT [facility] CT CHEST PULMONARY 2021-12-20 15:55:00 Faye Miramontes [facility] ANGIOGRAM [facility] EKG-12 LEAD 2021-12-20 15:46:49 Faye Miramontes [facility] TROPONIN I 2021-12-20 15:36:00 Faye Miramontes [facility] COMP. METABOLIC PANEL 2021-12-20 15:36:00 Faye Miramontes [facility] ([id number]) [facility] CBC WITH DIFF 2021-12-20 15:36:00 Faye Miramontes [facility] RAPID INFLUENZA A/B 2021-12-20 15:36:00 Faye Miramontes [facility] N-TERMINAL PRO-BNP 2021-12-20 15:36:00 Faye Miramontes [facility] COVID-19 (ID NOW RAPID 2021-12-20 15:36:00 Faye Miramontes [facility] TESTING) Medical Branch NOTICE OF PRIVACY 2021-12-20 15:05:02 Doctor Mynor [facility] PRACTICES [facility] CONSENT/REFUSAL FOR 2021-12-20 15:04:07 Doctor Lowe [facility] DIAGNOSIS AND TREATMENT [facility] Adenoidectomy [facility] Cataract surgery [facility] Tonsillectomy [facility] Plan of Care Planned Activity Planned Date Details Comments Source Future Scheduled 2022-10-29 SHINGLES VACCINES (1 [facility] Test 09:05:48 of 2) [code = SHINGLES VACCINES (1 of 2)] Future Scheduled 2022-10-29 65+ [facility]OC[facility] Test 09:05:48 VACCINE (1 - PCV) [code = 65+ PNEUMOCOCCAL VACCINE (1 - PCV)] Future Scheduled 2022-10-29 COVID-19 VACCINE (3 - Me [facility] Test 09:05:48 Pfizer series) [code = COVID-19 VACCINE (3 - Pfizer series)] Future Scheduled 2022-10-29 INFLUENZA VACCINE (#1) M [facility] Test 09:05:48 [code = INFLUENZA VACCINE (#1)] Future Scheduled 2022-01-15 HEPATITIS B VACCINES [facility] Test 09:51:01 (1 of 3 - 3-dose series) [code = HEPATITIS B VACCINES (1 of 3 - 3-dose series)] Future Scheduled 2022-01-15 SHINGLES VACCINES (1 [facility] Test 09:51:01 of 2) [code = SHINGLES VACCINES (1 of 2)] Future Scheduled 2022-01-15 65+ [facility] 09:[facility]:01 VACCINE (1 - PCV) [code = 65+ PNEUMOCOCCAL VACCINE (1 - PCV)] Future Scheduled 2022-01-15 COVID-19 VACCINE (3 - Me [facility] Test 09:51:01 Booster for Pfizer series) [code = COVID-19 VACCINE (3 - Booster for Pfizer series)] Future Scheduled 2022-01-15 INFLUENZA VACCINE [facility] Test 09:51:01 [code = INFLUENZA VACCINE] Future Scheduled 2021-12-19 HEPATITIS B VACCINES [facility] Test 06:50:02 (1 of 3 - 3-dose series) [code = HEPATITIS B VACCINES (1 of 3 - 3-dose series)] Future Scheduled 2021-12-19 SHINGLES VACCINES (1 Met [facility] Test 06:50:02 of 2) [code = SHINGLES VACCINES (1 of 2)] Future Scheduled 2021-12-19 65+ [facility] Test 06:50:02 VACCINE (1 - PCV) [code = 65+ PNEUMOCOCCAL VACCINE (1 - PCV)] Future Scheduled 2021-12-19 COVID-19 VACCINE (3 - Me [facility] Test 06:50:02 Booster for Pfizer series) [code = COVID-19 VACCINE (3 - Booster for Pfizer series)] Future Scheduled 2021-12-19 INFLUENZA VACCINE [facility] Test 06:50:02 [code = INFLUENZA VACCINE] Encounters Start End Encounter Admission Attending Care Care Encounter Source Date/Time Date/Time Type Type Clinicians Facility Department ID 2022-12-18 2022-12-18 Outpatient SWETA SOL [id number] [facility] 15:00:00 15:00:00 08 l Rick 2022-12-10 2022-12-10 Outpatient R MARTA LOFTON [facility] [id number] [facility] 10:30:00 10:30:00 MARTA LOFTON i ty [facility] 2022-11-02 2022-11-02 Telephone [facility] [id number] Univers 00:00:00 00:00:00 [place] PR[place] [id number] [id number] [id number] [address] 2022-10-15 2022-10-15 [email or web address] [id number] Univers 00:00:00 00:00:00 [place] PRIMARY [id number] [id number] [id number] [address] 2022-10-11 2022-10-11 Outpatient Ezequiel SMART [facility] [id number] Univers 13:45:00 16:03:33 ROLANDO mayberry [facility] 2022-10-11 2022-10-11 [facility] [id number] Univers 13:45:00 16:03:33 Visit Rolando MASCOR[place] [id number] [id number] [id number] [address] 2022-09-27 2022-09-27 [facility] [id number] Univers 13:45:00 13:45:00 ROLANDO mayberry [facility] 2022-09-26 2022-09-26 [facility] [id number] Univers 08:51:43 23:59:00 Encounter Oumou V[place] [id number] [id number] [id number] [address] 2022-09-26 2022-09-26 [facility] [id number] [facility] 08:36:04 08:50:00 OUMOU shawanda o f [facility] 2022-09-26 2022-09-[address] [facility] [address] [id number] Univers 08:36:04 08:50:00 Encounter Oumou [place] [id number] ity [facility] [id number] PROFESSIO [phone] [address] 2022-09-26 2022-09-26 Telephone [facility] 1.2.840.114 [id number] Univers 00:00:00 00:00:00 [place] [facility] 350.1.13.10 it [place] [phone] [address] ([facility]) 2022-09-25 2022-09-25 Telephone [facility] 1.2.840.114 [id number] Univers 00:00:00 00:00:00 Frieda PRIMARY 350.1.13.10 it [place] [phone] [address] 2022-09-18 2022-09-18 Office [facility] 1.2.840.114 [id number] Univers 13:00:00 13:30:00 Visit Frieda PRIMARY 350.1.13.10 it [place] [phone] [address] 2022-09-18 2022-09-18 Outpatient R [facility] [id number] Univers 13:00:00 13:00:00 FRIEDA ity [facility] 2022-08-17 2022-08-17 Telephone Mackay [facility] 1.2.124.044 [id number] Univers 00:00:00 00:00:00 Edwin CORREA 350.1.13.10 ity of [place] 4.2.7.2.686 [facility] [phone] [facility] AND MCNEAL [address] [facility] 2022-08-06 2022-08-06 Caustics Loader Tom, Adc Lab Main [facility] 1.2.8 40.114 [id number] Univers 07:30:00 07:45:00 Visit Edwin Yadav 350.1.13.10 ity of [place] 4.2.7.2.686 [facility] [phone] [address] 2022-08-06 2022-08-06 Outpatient R VICENTA [facility] [id number] Univers 07:30:00 07:30:00 EDWIN mayberry [facility] 2022-07-27 2022-07-27 Caustics Loader 1, Adc Lab [facility] 1.2.840.114 [id number] Univers 11:00:00 11:15:00 Visit Frieda Ac 350.1. 13.10 ity of [place] 4.2.7.2.686 [facility] [phone] [facility] [address] 2022-07-27 2022-07-27 Outpatient R OSORIO [facility] [id number] Univers 11:00:00 11:00:00 FRIEDA mayberry [facility] 2022-07-27 2022-07-27 Orders Doctor CARSON 1.2.840.114 [id number] Univers 00:00:00 00:00:00 Only Unassigned, MICHELLE 350.1.13.10 ity of [place] [facility] 4.2.7.2.686 Nicholas [phone] [facility] [address] 2022-06-25 2022-06-25 Office Hernando [facility] 1.2.840.114 [id number] Univers 09:30:00 10:00:00 Visit Marta VILLANUEVA 350.1.13.10 i ty [place] [phone] Nh dical NAL 085 [facility] 2022-06-25 2022-06-25 Outpatient R MARTA OLFTON [facility] [id number] Univers 09:30:00 09:30:00 MARTA LOFTON i ty of [facility] [place] 2022-06-25 2022-06-25 Orders Doctor CARSON 1.2.840.114 [id number] Univers 00:00:00 00:00:00 Only Unassigned, MICHELLE 350.1.13.10 ity of [place] [facility] 4.2.7.2.686 Nicholas as [phone] [address] 2022-06-04 2022-06-04 Telephone [facility] 1.2.840.114 [id number] Univers 00:00:00 00:00:00 Frieda PRIMARY 350.1.13.10 it [place] [phone] [address] 2022-06-01 2022-06-01 Telephone [facility] 1.2.840.114 [id number] Univers 00:00:00 00:00:00 Frieda PRIMARY 350.1.13.10 it [place] [id number] [address] 2022-05-30 2022-05-30 [facility] 1.2.828.998 [id number] Univers 00:00:00 00:00:00 Edwin PRIMARY 350.1.13.10 it [place] 4.2.[place].2.[place] [id number] [address] 2022-05-28 2022-05-28 Telephone [facility] 1.2.419.786 [id number] Univers 00:00:00 00:00:00 Marta VILLANUEVA 350.1.13.10 i ty of [place] [phone] Nh dical NAL 5 [facility] 2022-05-25 2022-05-25 Orders Doctor CARSON 1.2.840.114 [id number] Univers 00:00:00 00:00:00 Only Unassigned, MICHELLE 350.1.13.10 ity of [place] [facility] 4.2.7.2.686 Nicholas as [phone] [facility] [address] 2022-05-22 2022-05-22 Caustics Loader Pcp-Lab [facility] 1.2.840.114 [id number] Univers 16:15:00 16:30:00 Visit Howiejhonatan Frieda Jamila PRIMARY 350.1.1 3.10 it[place] of [place] 4.2.[place].2.[place] [phone] Nh dical [address] 2022-05-22 2022-05-22 [facility] [id number] Univers 13:30:00 14:24:11 [facility] 2022-[facility] 2022-05-22 Office [facility] 1.2.840.114 [id number] Univers 13:30:00 14:24:11 [facility] 350.1.13.10 it y of [facility] 4.2.7.2.[place] [phone] Nh dical [address] 2022-05-14 2022-05-14 Telephone [facility] 1.2.677.284 [id number] Univers 00:00:00 00:00:00 Clarydeepikaedwardo VILLANUEVA 350.1.13.10 i ty [facility] 4.2.7.2.[place] [phone] Nh dical NAL 085 [facility] 2022-03-15 2022-03-15 Outpatient [facility] [id number] Univers 15:30:00 15:30:00 SENDIL ity [facility] 2022-02-02 2022-02-02 Orders Doctor ALLI 1.2.840.114 [id number] Univers 00:00:00 00:00:00 Only Unassigned, MICHELLE 350.1.13.10 ity of [place] [facility] 4.2.7.2.686 Nicholas as [phone] [facility] [address] 2022-01-30 2022-01-30 Outpatient R BETHANY [facility] [id number] Univers 14:30:00 14:30:00 SENDIL ittrinidad of [facility] [place] 2022-01-15 2022-01-15 Outpatient R MARTA LOFTON [facility] 10 [id number] Univers 10:00:00 11:50:03 MARTA LOFTON i ty of [facility] 2022-01-15 2022-01-15 Office Hernando [facility] 1.2.840.114 [id number] Univers 10:00:00 11:50:03 Visit Marta VILLANUEVA 350.1.13.10 i ty of [place] [phone] Nh dical [facility] 2021-12-21 2021-12-21 Emergency X [facility] ERT [id number] Univers 10:45:00 11:21:00 DAMARIS mayberry [facility] 2021-12-21 2021-12-21 Emergency [facility] 1.2.464.906 [id number] Univers 10:45:00 11:21:00 Damaris V[place]ANUE[place] 350.1.13.10 ity of [place].2.[place] [phone] [place] 5[address]04 [place] 2021-12-20 2021-12-20 Emergency X [facility] ERT [id number] Univers 10:16:00 12:30:00 FAYE ity [facility] 2021-12-20 2021-12-20 Emergency [facility] 1.2.384.834 [id number] Univers 10:16:00 12:30:00 Faye VILLANUEVA 350.1.13.10 ity of [place].2.[place] [id number] [facility] [address] 2021-12-20 2021-12-20 Orders Doctor CARSON 1.2.840.114 [id number] Univers 00:00:00 00:00:00 Only Unassigned, MICHELLE 350.1.13.10 ity of [place] [facility] 4.2.7.2.686 [place] as [phone] Medi [address] 2021-12-06 2021-12-06 Outpatient R BETHANY [facility] [id number] Univers 10:00:00 10:00:00 SENDIL ity [facility] 2021-12-06 2021-12-06 Outpatient R BETHANY [facility] [id number] Univers 10:00:00 10:00:00 SENDIL ity [facility] 2021-11-28 2021-11-28 Outpatient R SIMS, [facility] [id number] Univers 13:00:00 13:00:00 SENDIL ity [facility] 2021-11-28 2021-11-28 Outpatient R BETHANY [facility] [id number] Univers 13:00:00 13:00:00 [facility] 2021-10-09 2021-10-09 [facility] [id number] Univers 09:00:00 09:00:00 SENDIL [facility] 2021-10-03 2021-10-03 Office [facility] 1.2.840.114 [id number] Univers 09:45:00 11:03:16 Visit Oumou VILLANUEVA 350.1.13.10 ity of [facility] 4.2.7.2.686 Carolynn IBRAHIM [phone] [address] 2021-10-03 2021-10-03 [facility] [id number] Univers 09:45:00 11:03:16 OUMOU hassan [facility] 2021-10-03 2021-10-03 [facility] [id number] Univers 09:45:00 09:45:00 OUMOU hassan [facility] 2021-09-13 2021-09-13 Out[facility] [id number] Univers 13:00:00 13:00:00 SENDIL [facility] 2021-09-13 2021-09-13 Telephone [facility] 1.2.747.371 [id number] Univers 00:00:00 00:00:00 Sendil Herman V[place]ANUE[place] 350.1.13.10 it[place].2.[place] [phone] Nh dicnd NAL [address] [place] [address] 2021-09-05 2021-09-05 Outpatient R BETHANY [facility] [id number] Univers 15:20:59 23:59:00 SENDIL ity [facility] 2021-09-05 2021-09-05 Office [facility] 1.2.840.114 [id number] Univers 14:30:00 15:28:59 Visit Sendil Herman VILLANUEVA 350.1.13.10 it[place] of [place] 4.2.[place].2.[place] [phone] [address] 2021-09-05 2021-09-05 [facility] [id number] Univers 14:30:00 14:30:00 SENDIL ity [facility] 2021-08-24 2021-08-24 Out[facility] [id number] Univers 13:57:15 23:59:00 SENDIL ity [facility] 2021-08-17 2021-08-17 Out[facility] [id number] Univers 13:00:00 13:00:00 SENDIL ity [facility] 2021-08-14 2021-08-14 Out[facility] [id number] Univers 11:00:00 11:00:00 SENDIL ity [facility] 2021-08-11 2021-08-11 Telephone [facility] 1.2.843.300 [id number] Univers 00:00:00 00:00:00 Sendil Herman VILL[place] 350.1.13.10 it[place].2.[place] [phone] [address] 2021-05-29 2021-05-29 Telephone [facility] 1.2.016.368 [id number] Univers 00:00:00 00:00:00 Sendil Herman VILLANUEVA 350.1.13.10 ity of [facility] 4.2.7.2.[place] [phone] Nh dical NAL 059 [facility] 2021-05-25 2021-05-25 Caustics Loader 2, Adc Lab [facility] 1.2.840.114 [id number] Univers 14:15:00 14:30:00 Visit Manuel Sims 350.1.13. 10 ity of [place].2.[place] [phone] Nh dical NAL 353 [facility] 2021-05-25 2021-05-25 Outpatient R BETHANY [facility] [id number] Univers 13:30:00 13:51:57 SENDIL ity [facility] 2021-05-25 2021-05-25 Office Bethany [facility] 1.2.840.114 [id number] Univers 13:30:00 13:51:57 Visit Manuel VILLANUEVA 350.1.13.10 it[place] 4[place].2.[place] [phone] Nh dicnd NAL 9 [facility] 2021-05-25 2021-05-25 Orders Doctor ALLI 1.2.840.114 [id number] Univers 00:00:00 00:00:00 Only Unassigned, MICHELLE 350.1.13.10 ity of [place] [facility] 4.2.7.2.686 [place] as [phone] [address] 2021-04-24 2021-04-24 Outpatient R BETHANY [facility] [id number] Univers 13:00:00 13:00:00 SENDIL ity [facility] 2020-10-21 2020-10-21 Office Bethany [facility] 1.2.840.114 [id number] Univers 09:16:45 10:28:42 Visit Manuel Villanueva 350.1.13.10 ity of [place].2.[place] [phone] Nh dical nal 059 [facility] 2020-10-21 2020-10-21 Outpatient R BETHANY [facility] [id number] Univers 09:30:00 09:30:00 SENDIL ity of [facility] [place] 2020-10-18 2020-10-18 Orders Doctor ALLI 1.2.840.114 [id number] Univers 00:00:00 00:00:00 Only Unassigned, MICHELLE 350.1.13.10 ity of [place] [facility] 4.2.7.2.686 Nicholas as [phone] [facility] [address] 2020-09-20 2020-09-20 Refdanyell [facility] 1.2.840.114 [id number] Univers 00:00:00 00:00:00 Sendil Herman Villanueva 350.1.13.10 [place] of [place] [phone] Nh dicnd nal 059 [facility] 2020-09-13 2020-09-13 Office Charles [facility] 1.2.840.114 [id number] [facility] 15:15:14 17:05:45 Visit Oumou JOSÉ 350.1.13.10 ity of [facility] 4.2.7.2.[place] [id number] [facility] [address] 2020-09-13 2020-09-13 [facility] [id number] Univers 15:30:00 15:30:00 OUMOU mayberry o f [facility] [place] 2020-08-15 2020-08-15 Telephone [facility] 1.2.840.114 [id number] Univers 00:00:00 00:00:00 Oumou Villanueva 350.1.13.10 it[place] of [place] [phone] Nh dical nal 205 [facility] 2020-08-04 2020-08-04 Telephone [facility] 1.2.840.114 [id number] Univers 00:00:00 00:00:00 Oumou [place]anueva 350.1.13.10 it[place] of [place].2.[place] [phone] Nh dical nal 188 [facility] 2020-08-01 2020-08-01 Outpatient R MEENU [facility] [id number] Univers 00:00:00 00:00:00 FELISA hassan [facility] 2020-07-19 2020-07-19 [facility] [id number] Univers 10:30:00 10:30:00 OUMOU hassan [facility] 2020-07-07 2020-07-07 Orders Doctor ALLI 1.2.840.114 [id number] Univers 00:00:00 00:00:00 Only Unassigned, MICHELLE 350.1.13.10 ity of [facility] 4.2.7.2.686 [place] as [phone] [address] 2020-06-24 2020-06-24 Office [facility] 1.2.840.114 [id number] Univers 09:59:50 11:38:21 Visit Oumou Villanueva 350.1.13.10 [place] of [place]2.[place] [phone] Nh dical nal 205 [facility] 2020-06-24 2020-06-24 Out[facility] [id number] Univers 10:15:00 10:15:00 OUMOU hassan [facility] 2020-06-17 2020-06-17 Office [facility] 1.2.840.114 [id number] Univers 10:05:41 11:43:48 Visit Manuel Villanueva 350.1.13.10 it[place] of [place].2.[place] [phone] Nh dical nal 059 [facility] 2020-06-17 2020-06-17 Office [facility] 1.2.840.114 [id number] Univers 10:05:41 11:43:48 Visit Manuel Villanueva 350.1.13.10 ity of [place] 4[place].2.[place] [phone] Nh dical nal 059 [facility] 2020-06-17 2020-06-17 [facility] [id number] Univers 10:30:00 10:30:00 SENDIL ity [facility] 2020-05-24 2020-05-24 Outpatient R BETHANY [facility] [id number] Univers 14:00:00 14:00:00 SENDIL ity [facility] 2020-05-23 2020-05-23 Telephone [facility] 1.2.333.100 [id number] Univers 00:00:00 00:00:00 Sendil Herman Villanue[place] 350.1.13.10 it[place] of [place] 4[place].2.[place] [phone] Nh dical nal 059 [facility] 2020-05-23 2020-05-23 Orders Doctor ALLI 1.2.840.114 [id number] Univers 00:00:00 00:00:00 Only Unassigned, MICHELLE 350.1.13.10 ity of [place] [facility] 4.2.7.2.686 Nicholas as [phone] [address] 2020-05-23 2020-05-23 Telephone [facility] 1.2.475.591 [id number] 00:00:00 00:00:00 Sendruby [place]an[place] 350.1.13.10 [place] 4.2.7.2.686 Professio [phone] [address] 2020-05-17 2020-05-17 Patient [facility] 1.2.840.114 [id number] Univers 00:00:00 00:00:00 Outreach Mateo DUPONT 350.1.13.10 i ty of [facility] 4.2.7.2.[place] [phone] Nh dical [address] 2020-05-16 2020-05-16 Outpatient R BETHANY [facility] [id number] Univers 08:00:00 08:00:00 SENDIL ittrinidad [facility] 2020-05-04 2020-05-04 Office [facility] 1.2.840.114 [id number] Univers 10:22:44 11:41:29 Visit Manuel Villanueva 350.1.13.10 it[place] of [place].2.[place] [phone] Nh dical nal 059 [facility] 2020-05-04 2020-05-04 Outpatient R BETHANY [facility] [id number] Univers 10:30:00 10:30:00 SENDIL ity of [facility] 2020-05-04 2020-05-04 Orders Doctor ALLI 1.2.840.114 [id number] Univers 00:00:00 00:00:00 Only Unassigned, MICHELLE 350.1.13.10 ity [facility] 4.2.7.2.686 [place] as [phone] [address] 2020-04-15 2020-04-15 Outpatient [facility] [id number] [place] 00:00:00 00:00:[address] 2020-03-25 2020-03-25 Outpatient [facility] [id number] [place] 00:00:00 00:00:[address] 2019-06-11 2019-06-11 Ambulatory nullFlavo MNA [id number] Memoria 15:15:00 15:15:00 Pre-Reg r Neurology 06 l [place] 2019-06-11 2019-06-11 Ambulatory nullFlavo MNA [id number] Memoria 15:15:00 15:15:00 Pre-Reg r Neurology 07 l [place] 2019-06-11 2019-06-11 Ambulatory nullFlavo MNA [id number] Memoria 15:15:00 15:15:00 Pre-Reg r Neurology 06 l [place] 2019-06-11 2019-06-11 Ambulatory nullFlavo MNA [id number] Memoria 15:15:00 15:15:00 Pre-Reg r Neurology 07 l [place] 2019-06-11 2019-06-11 Outpatient MHIE MHIE [id number] Memoria 10:15:00 10:15:00 06 l [place] 2019-06-11 2019-06-11 Outpatient MHIE MHIE [id number] Memoria 10:15:00 10:15:00 07 l [place] 2019-06-11 2019-06-11 Outpatient KENNY Hoffman MISCHER [id number] 10:15:00 10:15:00 Josesito 06 [place] 2019-06-11 2019-06-11 Outpatient Dalton MHMISCHER MHMISCHER [id number] 10:15:00 10:15:00 Josesito 07 [place] 2019-02-12 2019-02-13 Outpatient nullFlavo MNA [id number] Memoria 16:45:00 05:59:59 r Neurology 05 tiffany Cabrera 2019-02-12 2019-02-13 Outpatient nullFlavo MNA [id number] Memoria 16:45:00 05:59:59 r Neurology 05 tiffany Cabrera 2019-02-12 2019-02-12 Outpatient Dalton MHMISCHER MHMISCHER [id number] 10:45:00 23:59:59 Josesito Aurora Eugene 2019-02-12 2019-02-12 Outpatient MHIE MHIE [id number] Memoria 10:45:00 10:45:00 05 tiffany [place] 2018-11-04 2018-11-04 Outpatient MHIE MHIE [id number] Memoria 10:30:00 10:30:00 04 tiffany [place] 2018-11-04 2018-11-04 Outpatient MHIE MHIE [id number] Memoria 10:30:00 10:30:00 04 tiffany Cabrera 2018-07-01 2018-07-02 Outpatient nullFlavo MNA [id number] Memoria 15:30:00 04:59:59 r Neurology 03 tiffany Cabrera 2018-07-01 2018-07-02 Outpatient nullFlavo MNA [id number] Memoria 15:30:00 04:59:59 r Neurology 03 tiffany Cabrera 2018-07-01 2018-07-01 Outpatient Dalton MHMISCHER MHMISCHER [id number] 10:30:00 23:59:59 Josesito bJ [place] 2018-07-01 2018-07-01 Outpatient MHIE MHIE [id number] Memoria 10:30:00 10:30:00 03 tiffany [place] 2018-05-20 2018-05-20 Outpatient MHIE MHIE [id number] Memoria 09:30:00 09:30:00 02 tiffany [place] 2018-05-20 2018-05-20 Outpatient MHIE MHIE [id number] Memoria 09:30:00 09:30:00 02 tiffany Cabrera 2018-04-07 2018-04-07 Outpatient ELLIE ELLIE [id number] Memoria 08:15:00 08:15:00 01 tiffany Cabrera 2018-04-07 2018-04-07 Outpatient ELLIE ELLIE [id number] Memoria 08:15:00 08:15:00 01 tiffany Cabrera 2018-04-01 2018-04-02 Outpatient nullFlavo SDA [id number] Memoria 17:15:00 05:59:59 r Neurology 00 l Gely Cabrera 2018-04-01 2018-04-02 Outpatient nullFlavo MNA [id number] Memoria 17:15:00 05:59:59 r Neurology 00 l Gely Brantleyann 2018-04-01 2018-04-01 Outpatient Dalton [facility] [id number] 11:15:00 23:59:59 Josesito 00 [place] 2018-04-01 2018-04-01 Outpatient ELLIE ELLIE [id number] Memoria 11:15:00 11:15:00 00 tiffany BrantleyRick Results Test Description Test Time Test Comments Results Result Comments Source DIPHTHERIA & TETANUS IGG 2022-05-25 20:46:49 Test Item Value Reference Range Interpretation Comme nts Diphtheria Antibody, IgG (test 0.1 IU/mL INTERPRETIVE INFORMATION: Diphtheria code = 94844-3) Ab, IgG Anti body concentration of greater than 0. 1 IU/mL is usually considered prot ective. Responder status is determined a ccording to the ratio of a one month pos t-vaccination sample to pre-vaccination concentrations of Diphtheria IgG Abs as follows: 1. If the one month p ost-vaccination concentration i s less ? than 1.0 IU/mL, the patient is considered to be a ? non-responder. 2. If the post-vaccinatio n concentration is greater than or ? equal to 1.0 IU/mL, a patient with a ratio of less than ? 1.5 is a non-respon kee, a ratio of 1.5 to less than 3.0, ? a weak responder, and a ratio of 3.0 or greater, a good ? responder. 3. I f the pre-vaccination concentration i s greater than ? 1.0 IU/mL, it may b e difficult to assess the response ? based on a ratio alone. A post-vaccinat ion concentration ? above 2.5 IU/mL in this case is usually adequate. This test was developed and its performance characteristics determined by [employer]. It has not been cleare d or approved by the [place] Food and Drug A dministration. This test was performed i n a CLIA certified laboratory and is intended for clinical purposes. Tetanus Antibody, IgG (test code = 0.2 IU/mL INTERPRETIVE INFORMATION: Tetanus Ab, 06721-2) IgG Antibody co ncentration of greater than 0.1 IU/mL is usually considered protective. Res ponder status is determined acco rding to the ratio of a one-month post- vaccination sample to pre-vaccination concentration of Tetanus IgG Abs as follows: 1. If the one month post- vaccination concentration i s ? less than 1.0 IU/mL, the patient is considered a ? non-responder. 2. If the post-vaccinatio n concentration is greater than ? or equal to 1.0 IU/mL, a patient with a ratio of less ? than 1.5 is a non-respon kee, a ratio of 1.5 to less ? than 3.0 , a weak responder, and a ratio of 3.0 or ? greater, a good responder. 3. I f the pre-vaccination concentration i s greater than ? 1.0 IU/mL, it may b e difficult to assess the response ? based on a ratio alone. A post-vaccinat ion ? concentration above 2.5 IU/mL in this case is usually ? adequate. Thi s test was developed and its performance characteristics determined by [facility]. It has not been cleare d or approved by the [place] Food and Drug A dministration. This test was performed i n a CLIA certified laboratory and is intended for clinical purposes.Perfor med By: [address] [id number] aboratory Director: Elio bruner MD, PhD [facility]. Sendout- [id number]/Streptococcus pneumoniae Antibodies, IgG (23 Serotypes)2022-05-25 18:22:27 Test Item Value Reference Range Interpretation Comments Miscellaneous Test (test See scanned report code = [id number]) Performing Lab (test code [facility] = 7235421625) [facility] [id number] 13:22:09 Test Item Value Reference Range Interpretation Comments IgA (test code = 3971131704) 287 mg/dL 70-312 IgG (test code = 6554888426) 1030 mg/dL 636-1600 IgM (test code = 4123270621) 29 mg/dL 56-352 L Lab Interpretation (test code = Abnormal 62225-7) [facility] [id number] 13:19:38 Test Item Value Reference Range Interpretation Comments Anti-Trypsin (test code = 134 mg/dL 83-199 [id number]) Lab Interpretation (test code = Normal 44347-2) [facility] [id number] 21:58:35 Test Item Value Reference Range Interpretation Comments CD3 % (test code = 59 % 55-84 [id number]) CD3 ABS# (test code = 1408 See_Comment [Auto mated message] [id number]) The system [employer] generated this result transmitted ref erence range: 690 - 2, 540 Cells/?L. The reference range was not used to int erpret this result as normal/abnormal . Lab Interpretation (test Normal code = 77920-5) [facility] [id number] 21:58:35 Test Item Value Reference Range Interpretation Comments CD19 ABS# (test code = 582 See_Comment [Aut omated message] [id number]) The system [employer] generated this result transmitted ref erence range: 90 - 660 Cells/?L. The reference range was not used to int erpret this result as normal/abnormal . CD19 % (test code = 24 % 6-25 8103293463) Lab Interpretation (test Normal code = 43719-5) [facility] [id number] 21:58:35 Test Item Value Reference Range Interpretation Comments CD16+56 % (test code = 15 % 5-27 1211837975) CD16+56 ABS# (test code = 373 See_Comment [ Automated message] [id number]) The system [employer] generated this result transmitted ref erence range: 90 - 590 Cells/?L. The reference range was not used to int erpret this result as normal/abnormal . Lab Interpretation (test Normal code = 56838-4) [facility] SUBS[facility] [id number] 21:58:20 Test Item Value Reference Range Interpretation Comments CD4 % (test code = 53 % 31-60 8123-2) CD4 Absolute (test code 1243 See_Comment [Au tomated message] = 23863-5) The system [employer] generated this result transmitted ref erence range: 410 - 1, 590 Cells/?L. The reference range was not used to int erpret this result as normal/abnormal . CD8 % (test code = 7 % 13-41 L 8101-8) CD8 ABS# (test code = 152 See_Comment L [Auto mated message] 32678-2) The system [employer] generated this result transmitted ref erence range: 190 - 1, 140 Cells/?L. The reference range was not used to int erpret this result as normal/abnormal . CD4/CD8 Ratio (test code 8.2 See_Comment H [A utomated message] = 3032542718) The system [facility] generated this result transmitted ref erence range: 0.8 - 4. 2 Ratio. The refe rence range was not u sed to interpret this result as normal/abnor mal. Lab Interpretation (test Abnormal code = 60588-1) [facility] WITH [id number] 22:28:36 Test Item Value Reference Range Interpretation Comments WBC (test code = 9.29 See_Comment [Automated 6690-2) message] The sy stem which generated this result transmitted reference range : 4.30 - 11.10 10*3/?L. The reference range was not used to interpret this result as normal/abnormal . RBC (test code = 3.20 See_Comment L [Automated 789-8) message] The sy stem which generated this result transmitted reference range : 3.93 - 5.25 10*6/?L. The reference range was not used to interpret this result as normal/abnormal . HGB (test code = 10.0 g/dL 11.6-15.0 L 718-7) HCT (test code = 29.5 % 35.7-45.2 L 4544-3) MCV (test code = 92.2 fL 80.6-95.5 787-2) MCH (test code = 31.3 pg 25.9-32.8 785-6) MCHC (test code = 33.9 g/dL 31.6-35.1 786-4) RDW-SD (test code = 48.3 fL 39.0-49.9 40659-2) RDW-CV (test code = 14.2 % 12.0-15.5 788-0) PLT (test code = 243 See_Comment [Automated 777-3) message] The sy stem which generated this result transmitted reference range : 166 - 358 10*3/ ?L. The reference r arpit was not used to interpret this result as normal/abnormal . MPV (test code = 10.6 fL 9.5-12.9 78676-5) NRBC/100 WBC (test 0.0 See_Comment [Automat ed code = 3668631121) message] The system which generated this result transmitted reference range : 0.0 - 10.0 /100 WBCs. The refer ence range was not u sed to interpret th is result as normal/abnormal . NRBC x10^3 (test code See_Comment [Auto mated = 5352770113) message] The s ystem which generated this result transmitted reference range : 10*3/?L. The reference range was not used to interpret this result as normal/abnormal . GRAN MAT (NEUT) % 63.4 % (test code = 770-8) IMM GRAN % (test code 0.30 % = 7967732947) LYMPH % (test code = 24.5 % 736-9) MONO % (test code = 8.0 % 5905-5) EOS % (test code = 3.4 % 713-8) BASO % (test code = 0.4 % 706-2) GRAN MAT x10^3(ANC) 5.88 10*3/uL 1.88-7.09 (test code = 6360903423) IMM GRAN x10^3 (test 0.03 10*3/uL 0.00-0.06 code = 2018164427) LYMPH x10^3 (test code 2.28 10*3/uL 1.32-3.29 = 731-0) MONO x10^3 (test code 0.74 10*3/uL 0.33-0.92 = 742-7) EOS x10^3 (test code = 0.32 10*3/uL 0.03-0.39 711-2) BASO x10^3 (test code 0.04 10*3/uL 0.01-0.07 = 704-7) Lab Interpretation Abnormal (test code = 80497-3) [facility] HospitalTROPON[facility] [id number] 16:26:15 Test Item Value Reference Interpretation Comments Range TROPONIN I (test 0.005 ng/mL See_Comment [Automated code = 5649947132) message] The system which generated this result transmitted reference range : <=0.034. The reference range was not used to interpret this result as normal/abnormal . JABIER (test code = Reference (Normal) JABIER) Range (defined by the 99th percentile reference [...] biotin. Lab Interpretation Normal (test code = 60543-9) [facility] HospitalN-TERMINAL [id number] 16:23:15 Test Item Value Reference Range Interpretation Comments NT-proBNP (test code 686 pg/mL See_Comment H [Autom ated = 5714762662) message] The system which generated this result transmitted reference range : <=450. The reference range was not used to interpret this result as normal/abnormal . JABIER (test code = JABIER) Biotin has been reported to cause a negative bias, interpret results relative to patient's use of biotin. Lab Interpretation Abnormal (test code = 11326-7) [facility] HospitalCOMP. METABOLIC PANEL ([id number])[id number] 16:15:51 Test Item Value Reference Range Interpretation Comments NA (test code = 132 mmol/L 135-145 L 9816660851) K (test code = 5.4 mmol/L 3.5-5.0 H 2756057898) CL (test code = 98 mmol/L 98-108 6476001467) CO2 TOTAL (test code = 27 mmol/L 23-31 7842159468) AGAP (test code = 2-16 5119527173) BUN (test code = 33 mg/dL 7-23 H 8580206567) GLUCOSE (test code = 82 mg/dL 70-110 4330615338) CREATININE (test code = 0.92 mg/dL 0.50-1.04 2510105310) TOTAL BILI (test code = 0.7 mg/dL 0.1-1.7 6694247716) CALCIUM (test code = 9.2 mg/dL 8.6-10.6 9054526940) T PROTEIN (test code = 7.2 g/dL 6.3-8.2 7856854167) ALBUMIN (test code = 4.5 g/dL 3.5-5.0 2440995519) ALK PHOS (test code = 45 U/L 34-122 9402489250) ALTv (test code = 28 U/L 5-35 1742-6) AST(SGOT) (test code = 49 U/L 13-40 H 2376787735) eGFR (test code = mL/min/1.73m2 9077160233) JABIER (test code = JABIER) Association of [...] tests). Lab Interpretation Abnormal (test code = 66342-3) [facility] WITH [id number] 16:00:51 Test Item Value Reference Range Interpretation Comments WBC (test code = See_Comment [Automated 4490-2) message] The sy stem which generated this [...] RDW-SD (test code = 46.5 fL 39.0-49.9 76535-1) RDW-CV (test code = 14.0 % 12.0-15.5 788-0) PLT (test code = See_Comment [Automated 777-3) message] The sy stem which generated this result transmitted reference range : 166 - 358 10*3/ ?L. The reference r arpit was not used to interpret this result as normal/abnormal . MPV (test code = 11.2 fL 9.5-12.9 84798-0) NRBC/100 WBC (test See_Comment [Automat ed code = 5604870134) message] The system which generated this result transmitted reference range : 0.0 - 10.0 /100 WBCs. The refer ence range was not u sed to interpret th is result as normal/abnormal . NRBC x10^3 (test code See_Comment [Auto mated = 7269113214) message] The s ystem which generated this result transmitted reference range : 10*3/?L. The reference range was not used to interpret this result as normal/abnormal . GRAN MAT (NEUT) % 65.7 % (test code = 770-8) IMM GRAN % (test code 0.70 % = 2869680977) LYMPH % (test code = 18.9 % 736-9) MONO % (test code = 9.6 % 5905-5) EOS % (test code = 4.7 % 713-8) BASO % (test code = 0.4 % 706-2) GRAN MAT x10^3(ANC) 4.80 10*3/uL 1.88-7.09 (test code = 0392289058) IMM GRAN x10^3 (test 0.05 10*3/uL 0.00-0.06 code = 4279950894) LYMPH x10^3 (test code 1.38 10*3/uL 1.32-3.29 = 731-0) MONO x10^3 (test code 0.70 10*3/uL 0.33-0.92 = 742-7) EOS x10^3 (test code = 0.34 10*3/uL 0.03-0.39 711-2) BASO x10^3 (test code 0.03 10*3/uL 0.01-0.07 = 704-7) Lab Interpretation Abnormal (test code = 97103-1) [facility] Notes Date/Time Note Provider Source 2022-11-02 Formatting of this note might be differe nt from the original. Sherly Palma [facility] 12:21:35-00:00 Spoke to patient and explain ed situation with the specialty pharmacy. Informed patient that prescription has been sent to [facility] in order to supply training and required DME supplies. Will update BUSINESS DATABASE ANALYST patient as forms are proces sed. Patient verbalized understanding of information given. 2022-11-02 Formatting of this note might be differe nt from the original. Anai Diaz [facility] 11:32:39-00:00 Kalpana Agosto is a 82 year old female Pt is requesting a call from the nurse or Dr. Ac regarding the immun glob G,IgG,-pro-IgA 0-50 (HIZENTRA) 4 gram/20 mL (20 %) Syrg. Pt states the medication is at the pharmacy but she doesn't know w hat the next step is. Pharma cy states she needs an IV pole and she would like to know who administers this and where. Please advise [phone] Electronically signed by Anai Diaz at 09/2022 11:36 AM CDT 2022-10-25 Formatting of this note might be differe nt from the original. Sandra Membreno RN [facility] 15:20:55-00:00 Contacted [facility]. Per Rose, Pt was able to get approved through [employer]. Her out of pocket copay will be $0.00. A clinical pharmacist will be contacting patient to co unsel her on use of medicati on and will be mailed out upon completion. No further action is required. Electronically signed by Sandra Membreno RN a t 10/25/2022 3:25 PM CDT 2022-10-22 [facility] 17:12:41-00:00 Contacted Pt via phone. Name and verified. Pt updated regarding medication. Gave contact name for individual handling process of obtaining insurance approval and/or patient assistance. Pt eager to s tart medication as soon as possible. Sta amber she is not worried about the cost. In addition, patient had que stions regarding administration (ie: will someone come to her home and administer medication or will she be administering); and whether her first administration will take darrin ce in clinic. Pt states she has already looked at the medication online but was wanting to know what common side effects patients experience. Please advise. Electronically signed by Sandra Membreno RN a t 10/22/2022 5:23 PM CDT 2022-10-22 Formatting of this note might be differe nt from the original. Karla Patino [facility] 13:59:44-00:00 Kalpana Agosto is a 6 4 year old female is calling needing status on IV medication , patient would like to know when medication will be started,not worried about the mendez of medication. Need to know when is coming to start medication. Tony 2022-10-19 Formatting of this note might be differe nt from the original. Anai Diaz [facility] 08:44:57-00:00 Rerouting for closure and completion. 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 - discussed with patient regarding IG therapy. - immun glob G,IgG,-pro-IgA 0-50 (HIZENTRA) 4 gram/20 mL (20 %) Syrg; inject 8 g under the skin weekly. Dispense: 8 mL; Refill: [address] Frieda Ac RTC in 3 months or sooner if needed John Dorado MD Division of Allergy & Immunology PGY-4, Allergy & Immunology Fellow Please advise. Electronically signed by Sandra Membreno RN a t 10/16/2022 3:45 PM CDT 2022-10-15 [facility] 13:44:32-00:00 Kalpana Agosto is a 82 year old female Pt is calling to speak to [facility] nurse about the infusions. Pt states she wants to try it and is willing to pay for it. Pt wants to start it sumanth. Please advise Electronically signed by Anai Diaz at 1:46 PM CDT 2022-09-27 Addended by: SANDRA MEMBRENO RN on: 09/27/2022 05:11 PM [facility] 17:11:07-00:00 Modules accepted: Orders Electronically signed by Sandra Membreno RN a t 09/27/2022 5:11 PM CDT 2022-09-27 [facility] 16:59:07-00:00 Per Pharmacy: New script nee ds to be sent. The one sent to [facility] is not enough for a month's supply. It was sent in for 8 mL and per the directions they would need 160mL for a full month's supply. Script updated and eRx'd to [facility] Electronically signed by Sandra Membreno RN a t 09/27/2022 5:03 PM CDT 2022-09-27 Formatting of this note might be differe nt from the original. Sandra Membreno RN [facility] 15:11:44-00:00 Per Rose honeycutt/[facility] "the medication is covered through her part B. I ran the medication through her Medicare B and it went through without a prior authorization being required. " See duplicate encounter for communication. Electronically signed by Sandra Membreno RN a t 09/27/2022 3:16 PM CDT 2022-09-27 Formatting of this note might be differe nt from the original. Rose Magallanes [facility] 12:46:54-00:00 Yes the medication is covere d through her part B. I ran the medication through her Medicare B and it went through without a prior authorization being required. Electronically signed by Rose Magallanes at 04/2022 12:49 PM CDT 2022-09-27 [facility] 10:05:28-00:00 How do we send it through [facility] medical plan? Will it be covered that way? Frieda Ac MD Allergy/Immunology 09/27/2022 2022-09-26 [facility] 15:51:08-00:00 Surya, The prior authoirzation has been denied for the following medication: Drug: Hizentra Insurance: [employer] CoverMyMeds [place]: [id number] Denial Reason: "The medication is a pharmac y benefit exclusion and must go through the medical plan" If there are any further questions, please reach out to me. Thank you. Electronically signed by Rose Magallanes at 03/2022 3:53 PM CDT 2022-09-26 [facility] 12:34:27-00:00 Telephone note: Called patient in which she was told to call our clinic on Saturday to follow up on her Hizentra. Patient is still interested in Hizentra due to her symptoms. I called [facility] pharmacy in [facility] was told that this is still pending prior authorization however appears it is currently being worked on. Called patient in which I updated her on the cur rent status of Hizentra. - Hizentra is still pending prior auth. John Dorado MD Division of Allergy & Immunology PGY-4, Allergy & Immunology Fellow Electronically signed by John Dorado MD a t 09/26/2022 12:44 PM CDT 2022-09-25 Formatting of this note might be differe nt from the original. Jeniffer Mullins [facility] 10:18:24-00:00 Kalpana Agosto is a 82 year old female Pt is calling stating she wa s advised to call Dr. Ac today to discuss IG Therapy. Please call to discuss. Please advise.
[2022-11-06 09:19] LABS: Absolute Lymphocytes (CBC) 1.5 K/uL (0.7-4.9); Lymphocytes % 13.5 % (15.3-44.8); MCV 92.6 fL (80-100); MPV 8.7 fL (7.6-11.3); Platelets 270 thou/uL (152-406); RBC Red Blood Cell Count 3.67 M/uL (3.86-4.86)
[2022-11-06 09:39] LABS: Albumin 3.9 g/dL (3.4-5.0); Bilirubin Total 0.8 mg/dL (0.2-1.0); Potassium 4.1 mEq/L (3.5-5.1); Protein, Total 7.8 g/dL (6.4-8.2)
[2022-11-06 09:57] LABS: Specific Gravity 1.014 (1.005-1.030); Urine Bacteria <20 /HPF (<20); Urine Bilirubin NEGATIVE (Negative); Urine Blood Negative (Negative); Urine Clarity Turbid (Clear); Urine Color Yellow (Yellow); Urine Glucose NEGATIVE (Negative); Urine Mucus Slight /HPF (None Seen); Urine Protein 1+ (Negative); Urine RBC <5 /HPF (None Seen); Urine Urobilinogen Normal (Normal); Urine pH 5.5 (5.0-7.0)
[2022-11-06] MEDS ORDERED: ONDANSETRON 4 MG/2 ML VIAL ONE (09:58)
--- NOTE | 2022-11-06 10:12 | RAD REPORT ---
EXAM DESCRIPTION: CTAbdomen Pelvis W Contrast - 11/06/2022 9:57 am CLINICAL HISTORY: ABD PAIN COMPARISON: Abdomen Pelvis W Contrast dated 01/24/2016 TECHNIQUE: CT of the abdomen and pelvis was performed. All CT scans are performed using dose optimization technique as appropriate and may include automated exposure control or mA/KV adjustment according to patient size. FINDINGS: Lower chest: No acute abnormality. Liver: No acute abnormality or suspicious lesions. Biliary: No biliary ductal dilatation. Stomach: No significant focal abnormality. Duodenum: No significant focal abnormality. Pancreas: No significant abnormality. Spleen: No significant abnormality. Adrenal: No suspicious lesions. Kidney/ureter: No hydronephrosis. No renal calculi. Retroperitoneum: No retroperitoneal adenopathy. Vascular: Atherosclerosis. Bowel: No significant focal abnormality. Peritoneum: No ascites or free air. Bladder: Grossly unremarkable. Reproductive: No adnexal masses. Bones: No acute fracture. Multilevel degenerative changes are present in the spine. Other: n/a IMPRESSION: No acute intra-abdominal or pelvic finding.
[2022-11-06] MEDS ORDERED: NA CHLORIDE 0.9% 1,000 ML ONE (10:52)
--- NOTE | 2022-11-06 12:05 | EDPHYS ---
Physician Documentation [facility] Name: Kalpana Guzmán Age: 82 yrs Sex: Female : 1940 Arrival Date: 11/06/2022 Time: 08:45 Bed 5 Private MD: ED Physician Daya Rogel HPI: 11/06 10:32 This 82 yrs old Female presents to ER via Ambulatory with complaints of Nausea, kb Dizziness, Abdominal Pain. 10:32 The patient presents to the emergency department with nausea, abdominal pain. Onset: kb The symptoms/episode began/occurred 3 day(s) ago. Possible causes: unknown. The symptoms are aggravated by nothing. The symptoms are alleviated by nothing. Associated signs and symptoms: Pertinent positives: abdominal pain, nausea. Severity of symptoms: At their worst the symptoms were moderate in the emergency department the symptoms are unchanged. The patient has not experienced similar symptoms in the past. The patient has not recently seen a physician. Pt reports abd pain and nausea for 3 days. Denies vomiting, diarrhea, fever, urinary symptoms. . Historical: - Allergies: 08:59 Codeine; ap3 - PMHx: 08:59 Glaucoma; Hypertensive disorder; MAC; ap3 - Immunization history:: Client reports receiving the 2nd dose of the Covid vaccine. - Social history:: Smoking status: Patient denies any tobacco usage or history of. ROS: 10:33 Constitutional: Negative for fever, chills, and weight loss. kb 10:33 Abdomen/GI: Positive for abdominal pain, nausea, Negative for vomiting, diarrhea. 10:33 All other systems are negative. Exam: 10:33 Constitutional: This is a well developed, well nourished patient who is awake, alert, kb and in no acute distress. Head/Face: Normocephalic, atraumatic. ENT: Moist Mucous membranes Cardiovascular: Regular rate Respiratory: Respirations even and unlabored. No increased work of breathing. Talking in full sentences Skin: Warm, dry with normal turgor. Normal color. MS/ Extremity: Pulses equal, no cyanosis. Neurovascular intact. Full, normal range of motion. Neuro: Awake and alert, GCS 15, oriented to person, place, time, and situation. Moves all extremities. Normal gait. 12:04 Abdomen/GI: Inspection: abdomen appears normal, Bowel sounds: normal, Palpation: soft, kb in all quadrants, mild abdominal tenderness, in the left lower quadrant. Vital Signs: 08:58 BP 181 / 69; Pulse 66; Resp 18; Temp 98.3; Pulse Ox 100% ; Weight 53.52 kg; Pain 2/10; ap3 10:38 BP 146 / 63; Pulse 60; Resp 16; Pulse Ox 100% on R/A; mb9 11:35 BP 154 / 75; Pulse 74; Resp 16; Pulse Ox 100% on R/A; mb9 08:58 Pain Scale: Adult ap3 MDM: 08:51 Patient medically screened. kb 10:34 Differential diagnosis: Nonspecific abd pain, gastritis, diverticulitis, viral kb gastroenteritis. Data reviewed: vital signs, nurses notes. 12:03 Consideration of Admission/Observation Escalation of care including kb admission/observation considered. admission considered for hyponatremia. Pt states she is ready to go home. Will follow up with Dr Penn and Dr Alberto. . Counseling: I had a detailed discussion with the patient and/or guardian regarding the historical points, exam findings, and any diagnostic results supporting the discharge/admit diagnosis, lab results, radiology results, the need for outpatient follow up, a family practitioner, to return to the emergency department if symptoms worsen or persist or if there are any questions or concerns that arise at home. 11/06 09:02 Order name: CBC with Diff; Complete Time: 09:23 kb 11/06 09:02 Order name: CMP; Complete Time: 09:41 kb 11/06 09:02 Order name: Lipase; Complete Time: 09:41 kb 11/06 09:02 Order name: Urinalysis w/ reflexes; Complete Time: 09:58 kb 11/06 10:44 Order name: Flu; Complete Time: 11:35 kb 11/06 10:44 Order name: SARS-COV-2 RT PCR; Complete Time: 11:30 kb 11/06 09:02 Order name: CT Abd/Pelvis - IV Contrast Only; Complete Time: 10:30 kb 11/06 09:02 Order name: IV Saline Lock; Complete Time: 09:03 kb 11/06 09:02 Order name: Labs collected and sent; Complete Time: 09:03 kb Administered Medications: 09:49 Drug: Ondansetron IVP 4 mg Route: IVP; Site: left antecubital; mb9 12:21 Follow up: Response: No adverse reaction mb9 10:42 Drug: NS 0.9% IV 1000 ml Route: IV; Rate: 1000 ml; Site: left antecubital; mb9 12:21 Follow up: Response: No adverse reaction; IV Status: Completed infusion mb9 Disposition Summary: 11/06/22 12:04 Discharge Ordered Location: Home kb Condition: Stable kb Diagnosis - Abdominal pain, Generalized kb Followup: kb - With: Emergency Department - When: As needed - Reason: Worsening of condition Followup: kb - With: Private Physician - When: 2 - 3 days - Reason: Recheck today's complaints, Continuance of care, Re-evaluation by your physician Discharge Instructions: - Discharge Summary Sheet kb - Abdominal Pain, Adult, [id number] kb Forms: - Medication Reconciliation Form kb - Thank You Letter kb - Antibiotic Education kb - Prescription Opioid Use kb - Patient Portal Instructions kb - Leadership Thank You Letter kb Prescriptions: - ondansetron 4 mg Oral Tablet,disintegrating - take 1 tablet by ORAL route every 6 hours As needed; 12 tablet; Refills: 0, kb Product Selection Permitted - dicyclomine 20 mg Oral Tablet - take 1 tablet by ORAL route 4 times per day As needed; 20 tablet; Refills: 0, kb Product Selection Permitted Signatures: Dispatcher [employer] EDJustina Draper, Jessica Napoles RN RN ap3 Celine Carr RN RN mb9 Corrections: (The following items were deleted from the chart) 12:04 10:33 Constitutional: This is a well developed, well nourished patient who is awake, kb alert, and in no acute distress. Head/Face: Normocephalic, atraumatic. ENT: Moist Mucous membranes Cardiovascular: Regular rate Respiratory: Respirations even and unlabored. No increased work of breathing. Talking in full sentences Abdomen/GI: Soft, non-tender. No distention Skin: Warm, dry with normal turgor. Normal color. MS/ Extremity: Pulses equal, no cyanosis. Neurovascular intact. Full, normal range of motion. Neuro: Awake and alert, GCS 15, oriented to person, place, time, and situation. Moves all extremities. Normal gait. kb
--- NOTE | 2022-11-06 12:05 | ER ---
Nurse's Notes [facility] Name: Kalpana Guzmán Age: 82 yrs Sex: Female : 1940 Arrival Date: 11/06/2022 Time: 08:45 Bed 5 Private MD: Diagnosis: Abdominal pain, Generalized Presentation: 11/06 08:58 Chief complaint: Patient states: she is having abdominal pain and nausea that started a ap3 few days ago. patient denies vomiting. Coronavirus screen: At this time, the client does not indicate any symptoms associated with coronavirus-19. Ebola Screen: No symptoms or risks identified at this time. Initial Sepsis Screen: Does the patient meet any 2 criteria? No. Patient's initial sepsis screen is negative. Does the patient have a suspected source of infection? Yes: Acute abdominal pain. Risk Assessment: Do you want to hurt yourself or someone else? Patient reports no desire to harm self or others. Onset of symptoms was November 03, 2022. 08:58 Method Of Arrival: Ambulatory ap3 08:58 Acuity: KATIE 3 ap3 Triage Assessment: 08:59 General: Appears in no apparent distress. Behavior is calm, cooperative, appropriate ap3 for age. Pain: Complains of pain in abdomen Pain currently is 2 out of 10 on a pain scale. at worst was 9 out of 10 on a pain scale. Neuro: Level of Consciousness is awake, alert, obeys commands, Oriented to person, place, time, situation. Cardiovascular: Patient's skin is warm and dry. Respiratory: Airway is patent Respiratory effort is even, unlabored, Respiratory pattern is regular, symmetrical. GI: Reports lower abdominal pain, upper abdominal pain, nausea. Historical: - Allergies: :59 Codeine; ap3 - PMHx: :59 Glaucoma; Hypertensive disorder; MAC; ap3 - Immunization history:: Client reports receiving the 2nd dose of the Covid vaccine. - Social history:: Smoking status: Patient denies any tobacco usage or history of. Screenin:59 [facility] ED Fall Risk Assessment (Adult) History of falling in the last 3 months, ap3 including since admission No falls in past 3 months (0 pts). Abuse screen: Denies threats or abuse. Nutritional screening: No deficits noted. Tuberculosis screening: No symptoms or risk factors identified. Assessment: 09:02 General: Appears in no apparent distress. Behavior is calm, cooperative. Pain: mb9 Complains of pain in abdomen Pain currently is 8 out of 10 on a pain scale. Quality of pain is described as throbbing, Pain began suddenly, Is intermittent. Neuro: Lopez Agitation-Sedation Scale (RASS): 0 - Alert and Calm Level of Consciousness is awake, alert, obeys commands, Oriented to person, place, time, situation, Appropriate for age. Cardiovascular: Heart tones S1 S2 present Patient's skin is warm and dry. Respiratory: Airway is patent Respiratory effort is even, unlabored, Respiratory pattern is regular, symmetrical, Breath sounds are clear bilaterally. GI: Abdomen is flat, non-distended, Bowel sounds present X 4 quads. Abd is soft and non tender X 4 quads. Reports diarrhea, nausea. : No signs and/or symptoms were reported regarding the genitourinary system. Derm: Skin is pink, warm \T\ dry. Musculoskeletal: Range of motion: intact in all extremities. 09:50 Reassessment: pt taken to CT via wheelchair. mb9 10:36 Reassessment: Patient and/or family updated on plan of care and expected duration. Pain mb9 level reassessed. Patient is alert, oriented x 3, equal unlabored respirations, skin warm/dry/pink. Patient states feeling better. Patient states symptoms have improved. Vital Signs: 08:58 BP 181 / 69; Pulse 66; Resp 18; Temp 98.3; Pulse Ox 100% ; Weight 53.52 kg; Pain 2/10; ap3 10:38 BP 146 / 63; Pulse 60; Resp 16; Pulse Ox 100% on R/A; mb9 11:35 BP 154 / 75; Pulse 74; Resp 16; Pulse Ox 100% on R/A; mb9 08:58 Pain Scale: Adult ap3 ED Course: 08:49 Patient arrived in ED. im 08:50 Justina Cole FNP-C is PHCP. kb 08:50 Daya Rogel MD is Attending Physician. kb 08:52 Arm band placed on. mb9 08:52 Placed in gown. Bed in low position. Call light in reach. Side rails up X 1. Client mb9 placed on continuous cardiac and pulse oximetry monitoring. NIBP monitoring applied. 08:53 Breneman, Carmen, RN is Primary Nurse. mb9 08:59 Triage completed. ap3 09:03 No provider procedures requiring assistance completed. Inserted saline lock: 22 gauge mb9 in left antecubital area, using aseptic technique. 09:03 CBC with Diff Sent. mb9 09:03 CMP Sent. mb9 09:03 Lipase Sent. mb9 09:58 CT Abd/Pelvis - IV Contrast Only In Process Unspecified. EDMS 12:21 IV discontinued, intact, bleeding controlled, No redness/swelling at site. Pressure mb9 dressing applied. Administered Medications: 09:49 Drug: Ondansetron IVP 4 mg Route: IVP; Site: left antecubital; mb9 12:21 Follow up: Response: No adverse reaction mb9 10:42 Drug: NS 0.9% IV 1000 ml Route: IV; Rate: 1000 ml; Site: left antecubital; mb9 12:21 Follow up: Response: No adverse reaction; IV Status: Completed infusion mb9 Medication: 08:52 VIS not applicable for this client. mb9 Outcome: 12:04 Discharge ordered by . kb 12:21 Discharged to home ambulatory. mb9 12:21 Condition: stable 12:21 Discharge instructions given to patient, Instructed on discharge instructions, follow up and referral plans. Demonstrated understanding of instructions, follow-up care, medications, Prescriptions given X 2. 12:22 Patient left the ED. mb9 Signatures: Dispatcher [employer] EDMS Justina Cole, URMILA CHURCHILL-Jessica Rodriguez RN RN ap3 Celine Carr, RN RN mb9 Jen Cross
[2022-11-06 12:59] VITALS: TEMP 98.3; O2SAT 100
[2022-11-06 13:01] VITALS: BP 154/75
== END 2022-11-06 12:22 | disposition home or self-care (01) ==
LOC: ER 08:45
DX: R10.84 Generalized abdominal pain (principal); R11.0 Nausea; I10 Essential (primary) hypertension; Z20.822 Contact with and (suspected) exposure to COVID-19; Z88.5 Allergy status to narcotic agent
CPT/HCPCS: 96361; 85025; 81001; 36415; 83690; 80053; 87635; 87804 ×2; 74177; 96374; 99284; Q9967; J2405; J7030

== ENCOUNTER → 2023-05-15 | Emergency (ER) | payer OTHER, BC ==
[~2023-05-15] MED LIST: LABETALOL 20 MG/4ML SYRINGE IV ONE; LEVETIRACETAM 500 MG/5 ML VIAL IV ONE; LIDOCAINE 1% 20 ML MDV ONE; NA CHLORIDE 0.9% 100 ML ONE; TDAP (DIPHTH,PERTUSS(ACELL),TET VAC) 0.5 ML VIAL IMVAC ONE
--- NOTE | 2023-05-15 16:29 | RAD REPORT ---
EXAM DESCRIPTION: CT - Head Brain Wo Cont - 05/15/2023 4:10 pm CLINICAL HISTORY: Head injury status post fall COMPARISON: None TECHNIQUE: Computed axial tomography of the head was obtained. IV contrast was not requested. All CT scans are performed using dose optimization technique as appropriate and may include automated exposure control or mA/KV adjustment according to patient size. FINDINGS: A right frontal scalp laceration. Linear area of increased density anterior right frontal lobe Mild prominence of the ventricles probably secondary to cerebral atrophy No extra-axial fluid collection is noted. Mild low-density areas within periventricular, deep and subcortical white matter likely represent isc hemic changes secondary to small vessel disease. Fluid within the sinuses/ mastoids is not seen. IMPRESSION: Linear area of increased density right frontal lobe is favored to be volume averaging of adjacent bone rather then a very small subarachnoid bleed. If patient's symptoms persist MRI of the brain would be recommended
--- NOTE | 2023-05-15 16:45 | EDPHYS ---
Physician Documentation [facility] Name: Kalpana Guzmán Age: 83 yrs Sex: Female : 1940 Arrival Date: 05/15/2023 Time: 15:43 Bed 13 Private MD: ED Physician Jose R Duval HPI: 05/14 16:00 This 83 yrs old Female presents to ER via Unassigned with complaints of Fall ec2 Injury, Laceration To Head. 16:00 Patient arrives today for an injury to the head. States that last night she was walking ec2 her dog approximately 12 hours ago, states that she tripped and fell. Patient reports no LOC, no blood thinner use. Complaining of pain at the right head. Last tetanus greater than 5 years.. Historical: - Allergies: 16:01 Codeine; ld1 - PMHx: 16:01 Glaucoma; Hypertensive disorder; MAC; ld1 - Immunization history:: Adult Immunizations up to date. - Social history:: Smoking status: Patient denies any tobacco usage or history of. Patient/guardian denies using alcohol. ROS: 16:00 Constitutional: as per hpi ec2 Exam: 16:00 Constitutional: GEN: NAD Head: atraumatic Eyes: EOMI Ears: External ears are ec2 normal. CV: regular rate LUNGS: no respiratory distress ABD: non-distended SKIN: 4 cm laceration to the right forehead MSK: No C/T/L-spine TTP NEURO: moves all extremities equally Vital Signs: 15:59 BP 167 / 66; Pulse 75; Resp 18; Temp 97.5(TE); Pulse Ox 100% on R/A; Weight 55 kg; ld1 Height 5 ft. 5 in. ; Pain 0/10; 16:55 BP 184 / 71; Pulse 78; Resp 16; Pulse Ox 100% on R/A; mb9 17:23 BP 197 / 79; Pulse 84; Resp 16; Pulse Ox 98% on R/A; mb9 17:38 BP 168 / 61; Pulse 71; Resp 18; Pulse Ox 100% on R/A; mb9 18:18 BP 166 / 78; Pulse 78; Resp 16; Pulse Ox 100% on R/A; mb9 19:25 BP 172 / 58; Pulse 69; Resp 16; Pulse Ox 100% on R/A; vc1 15:59 Body Mass Index 20.18 (55.00 kg, 165.1 cm) ld1 15:59 Pain Scale: Adult ld1 Laceration: 16:43 Wound Repair of 4cm ( 1.6in ) subcutaneous laceration to face. Distal ec2 neuro/vascular/tendon intact. Anesthesia: Local anesthetic administered with 3 mls of 1% lidocaine. Wound prep: Moderate cleansing. Skin closed with 4-0 Prolene using simple sutures and sterile technique. Patient tolerated well. MDM: 15:56 Patient medically screened. ec2 16:00 Data reviewed: vital signs. ED course: Patient arrives today for a laceration ec2 evaluation to the right forehead. Examination remarkable for skin findings as above. Will obtain CT scan of the head given the patient's age, will clean the wound and repair it. Considering intracranial brain bleed, I considered C-spine fracture however patient well-appearing without focal tenderness. Additionally no prodromal symptoms will defer any lab work such as CBC or BMP or EKG.. 16:43 ED course: CT scan shows increased density in the right frontal lobe area, patient did ec2 have a head strike in this area, radiology, small possible bone artifact versus small subarachnoid. I will treat a subarachnoid, will place an IV, obtain lab work and give the patient Keppra and plan to transfer the patient for neurosurgery capable facility. . 17:22 ED course: CBC is reassuring, metabolic profile with slight hypokalemia and renal ec2 dysfunction noted. Will proceed with transfer. . 17:42 ED course: Patient reports that she will be transferred to [facility]. Will attempt ec2 transfer there.. 17:44 ED course: I discussed case with trauma surgery at [facility] who agrees accept the ec2 patient for transfer. I updated the patient who is agreeable.. 05/14 16:43 Order name: CBC with Diff; Complete Time: 17:22 ec2 05/14 16:43 Order name: CMP; Complete Time: 17:22 ec2 05/14 16:43 Order name: PT-INR; Complete Time: 17:15 ec2 05/14 16:43 Order name: Ptt, Activated; Complete Time: 17:15 ec2 05/14 16:00 Order name: CT Head Brain wo Cont; Complete Time: 16:42 ec2 05/14 16:00 Order name: Wound Care; Complete Time: 16:09 ec2 05/14 16:00 Order name: Suture Tray Setup; Complete Time: 16:09 ec2 05/14 16:56 Order name: IV Saline Lock; Complete Time: 16:56 mb9 Administered Medications: 16:17 Drug: Boostrix Tdap IM 0.5 ml IM once; as a single dose {Note: LK59T 03/09/25 mb9 [employer].} Route: IM; Site: right deltoid; 17:30 Follow up: Response: No adverse reaction mb9 16:19 Drug: Lidocaine-Epinephrine Infiltration -1%: (1:100,000) 10 ml 20 ml Infiltration mb9 once; to bedside Volume: 20 ml; Route: Infiltration; 16:55 Drug: Keppra IV 1000 mg IV at calculated rate once Route: IV; Rate: calculated rate; mb9 Site: left antecubital; 17:29 Follow up: Response: No adverse reaction; IV Status: Completed infusion mb9 17:29 Drug: Labetalol IV 10 mg IV at bolus once Route: IV; Rate: bolus; Site: left mb9 antecubital; 17:55 Follow up: Response: No adverse reaction; IV Status: Completed infusion mb9 Disposition Summary: 05/15/23 16:44 Transfer Ordered Notes: Transfer Location: Other Acute Care Facility ec2 Reason: Higher level of care ec2 Condition: Stable ec2 Problem: new ec2 Symptoms: are unchanged ec2 Accepting Physician: transferring doc(05/15/23 19:48) jb4 Diagnosis - Traumatic subarachnoid hemorrhage ec2 Discharge Instructions: - Discharge Summary Sheet ec2 - Laceration Care, Adult, [id number] ec2 Forms: - Medication Reconciliation Form ec2 - SBAR form ec2 Critical care time excluding procedures: 16:44 Critical care time: Bedside Care: 30 minutes, Consultation: 5 minutes. Total time: 35 ec2 minutes Signatures: Dispatcher [employer] Madhu Francis RN RN jb4 Sol Ulloa RN RN ld1 Celine Carr RN RN mb9 Jose R Duval MD MD ec2 Corrections: (The following items were deleted from the chart) 19:48 16:44 transferring doc ec2 jb4
--- NOTE | 2023-05-15 16:45 | ER ---
Nurse's Notes [facility] Name: Kalpana Guzmán Age: 83 yrs Sex: Female : 1940 Arrival Date: 05/15/2023 Time: 15:43 Bed 13 Private MD: Diagnosis: Traumatic subarachnoid hemorrhage Presentation: 05/14 15:59 Chief complaint: Patient states: Taking dog out last night in a hurry and half asleep. ld1 Pt fell - laceration to right forehead. Denies LOC, not on blood thinners. Coronavirus screen: At this time, the client does not indicate any symptoms associated with coronavirus-19. Ebola Screen: No symptoms or risks identified at this time. Initial Sepsis Screen: Does the patient meet any 2 criteria? No. Patient's initial sepsis screen is negative. Does the patient have a suspected source of infection? No. Patient's initial sepsis screen is negative. Risk Assessment: Do you want to hurt yourself or someone else? Patient reports no desire to harm self or others. Onset of symptoms was May 15, 2023. 15:59 Method Of Arrival: Ambulatory ld1 15:59 Acuity: KATIE 3 ld1 16:47 Acuity: KATIE 2 mb9 Triage Assessment: 16:01 General: Appears in no apparent distress. comfortable, Behavior is calm, cooperative, ld1 appropriate for age. Pain: Denies pain. EENT: No signs and/or symptoms were reported regarding the EENT system. Neuro: Level of Consciousness is awake, alert, obeys commands, Oriented to person, place, time, situation. Cardiovascular: Capillary refill < 3 seconds Patient's skin is warm and dry. Respiratory: Airway is patent Respiratory effort is even, unlabored. Injury Description: Laceration sustained to forehead. Historical: - Allergies: 16:01 Codeine; ld1 - PMHx: 16:01 Glaucoma; Hypertensive disorder; MAC; ld1 - Immunization history:: Adult Immunizations up to date. - Social history:: Smoking status: Patient denies any tobacco usage or history of. Patient/guardian denies using alcohol. Screenin:10 [facility] ED Fall Risk Assessment (Adult) History of falling in the last 3 months, mb9 including since admission Yes- single mechanical fall (1 pt) Confusion or Disorientation No (0 pts) Intoxicated or Sedated No (0 pts) Impaired Gait No (0 pts) Mobility Assist Device Used No (0 pt) Altered Elimination No (0 pt) Score/Fall Risk Level 0 - 2 = Low Risk Oriented to surroundings, Maintained a safe environment, Educated pt \T\ family on fall prevention, incl call for assistance when getting out of bed. Abuse screen: Denies threats or abuse. Nutritional screening: No deficits noted. Tuberculosis screening: No symptoms or risk factors identified. Assessment: 16:09 General: Appears in no apparent distress. Behavior is calm, cooperative. Pain: mb9 Complains of pain in face Pain does not radiate. Quality of pain is described as throbbing. Neuro: Lopez Agitation-Sedation Scale (RASS): 0 - Alert and Calm Level of Consciousness is awake, alert, obeys commands, Oriented to person, place, time, situation, Appropriate for age. Neuro: Pupils are PERRLA. Cardiovascular: Patient's skin is warm and dry. Respiratory: Airway is patent Respiratory effort is even, unlabored, Respiratory pattern is regular, symmetrical. GI: No signs and/or symptoms were reported involving the gastrointestinal system. : No signs and/or symptoms were reported regarding the genitourinary system. EENT: No signs and/or symptoms were reported regarding the EENT system. Derm: Skin is pink, warm \T\ dry. Musculoskeletal: Range of motion: intact in all extremities. Injury Description: Laceration sustained to right anterior forehead is clean, 2.6 to 7.5 cm long, not bleeding. 17:05 Reassessment: No changes from previously documented assessment. Patient and/or family mb9 updated on plan of care and expected duration. Pain level reassessed. Patient is alert, oriented x 3, equal unlabored respirations, skin warm/dry/pink. 17:30 Reassessment: ERP notified about pts BP of 197/79. See MAR for medication. VO for mb9 systolic BP to be less than 180. 18:30 Reassessment: No changes from previously documented assessment. Patient and/or family mb9 updated on plan of care and expected duration. Pain level reassessed. Patient is alert, oriented x 3, equal unlabored respirations, skin warm/dry/pink. 19:25 Reassessment: Patient appears in no apparent distress at this time. No changes from vc1 previously documented assessment. Patient and/or family updated on plan of care and expected duration. Pain level reassessed. Patient is alert, oriented x 3, equal unlabored respirations, skin warm/dry/pink. Vital Signs: 15:59 BP 167 / 66; Pulse 75; Resp 18; Temp 97.5(TE); Pulse Ox 100% on R/A; Weight 55 kg; ld1 Height 5 ft. 5 in. ; Pain 0/10; 16:55 BP 184 / 71; Pulse 78; Resp 16; Pulse Ox 100% on R/A; mb9 17:23 BP 197 / 79; Pulse 84; Resp 16; Pulse Ox 98% on R/A; mb9 17:38 BP 168 / 61; Pulse 71; Resp 18; Pulse Ox 100% on R/A; mb9 18:18 BP 166 / 78; Pulse 78; Resp 16; Pulse Ox 100% on R/A; mb9 19:25 BP 172 / 58; Pulse 69; Resp 16; Pulse Ox 100% on R/A; vc1 15:59 Body Mass Index 20.18 (55.00 kg, 165.1 cm) ld1 15:59 Pain Scale: Adult ld1 ED Course: 15:47 Patient arrived in ED. mg5 15:49 Jose R Duval MD is Attending Physician. ec2 15:58 Celine Carr, KAVON is Primary Nurse. mb9 16:00 Provided Education on: press call light if needing anything. mb9 16:01 Triage completed. ld1 16:01 Arm band placed on right wrist. ld1 16:[address] via stretcher. mb9 16:10 Placed in gown. Bed in low position. Call light in reach. Side rails up X 1. Client mb9 placed on continuous cardiac and pulse oximetry monitoring. NIBP monitoring applied. 16:11 CT Head Brain wo Cont In Process Unspecified. EDMS 16:24 Assist provider with laceration repair on forehead that was between 2.6 to 7.5 cm using mb9 sutures. Set up tray. Performed by Jose R Duval MD Dressed with 4X4s, Patient tolerated well. 16:56 Inserted saline lock: 20 gauge in left antecubital area, using aseptic technique. mb9 16:56 Ptt, Activated Sent. mb9 16:56 PT-INR Sent. mb9 16:56 CMP Sent. mb9 16:56 CBC with Diff Sent. mb9 16:56 Initial lab(s) drawn, by me, sent to lab. mb9 17:00 Wound care: to laceration located on forehead was cleaned with Hibiclens, soaked in mb9 normal saline solution, ice pack applied. Patient tolerated well. 17:36 1730 called [facility] for transfer talked to Clare. Neuro Trauma/ ICU bed. sp 18:[address] Dirk Vail accepted pt to [facility]. Admin approval \T\ 1745by Andree Funk RN TC Report number [id number] fax number [phone]. 18:17 Patient transferred, IV remains in place. mb9 18:29 talked to [facility] will transfer pt. 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 sp 19:01 Report given to KAVON Garrido. mb9 Administered Medications: 16:17 Drug: Boostrix Tdap IM 0.5 ml IM once; as a single dose {Note: LK59T 03/09/25 mb9 [employer].} Route: IM; Site: right deltoid; 17:30 Follow up: Response: No adverse reaction mb9 16:19 Drug: Lidocaine-Epinephrine Infiltration -1%: (1:100,000) 10 ml 20 ml Infiltration mb9 once; to bedside Volume: 20 ml; Route: Infiltration; 16:55 Drug: Keppra IV 1000 mg IV at calculated rate once Route: IV; Rate: calculated rate; mb9 Site: left antecubital; 17:29 Follow up: Response: No adverse reaction; IV Status: Completed infusion mb9 17:29 Drug: Labetalol IV 10 mg IV at bolus once Route: IV; Rate: bolus; Site: left mb9 antecubital; 17:55 Follow up: Response: No adverse reaction; IV Status: Completed infusion mb9 Medication: 16:10 VIS not applicable for this client. mb9 Outcome: 16:44 ER care complete, transfer ordered by . ec2 18:17 Transferred by ground EMS to [facility], Transfer form mb9 completed. X-rays sent w/ patient. 18:17 Transferred Note: Report given to transferring nurse KAVON Hernández 18:17 Condition: stable 18:17 Instructed on the need for transfer, 19:48 Patient left the ED. jb4 Signatures: Dispatcher [employer] EDMS Anahi Walter James, RN RN jb4 Sol Ulloa RN RN ld1 Radhika Rivas RN RN vc1 Celine Carr RN RN mb9 Richa Kim mg5 Jose R Duval MD MD ec2 Corrections: (The following items were deleted from the chart) 16:56 16:36 Patient did not have IV access during this emergency room visit. boni mb9
[2023-05-15 17:14] LABS: PT Prothrombin Time 10.3 SECONDS (9.5-12.5); PTT, Activated Partial Thromb 29.6 SECONDS (24.3-36.9); Protime INR 0.93
[2023-05-15 17:15] LABS: Absolute Eosinophils 0.3 K/uL (0-0.5); Absolute Lymphocytes (CBC) 1.7 K/uL (0.7-4.9); Absolute Monocytes 0.7 K/uL (0.1-1.3); Absolute Neutrophil 6.4 K/uL (1.8-8.0); Basophils % 0.3 % (0-1.3); Eosinophils % 3.7 % (0-4.4); Hematocrit 29.5 % (36.0-45.0); Hemoglobin 10.2 g/dL (12.0-15.0); Lymphocytes % 18.1 % (15.3-44.8); MCH 32.1 pg (27.0-35.0); MCHC 34.7 g/dL (32.0-36.0); MCV 92.7 fL (80-100); MPV 9.2 fL (7.6-11.3); Monocytes % 8.1 % (3.3-12.3); Neutrophils % 69.8 % (41.7-73.7); Nucleated Red Blood Cells % 0.2 % (0-0); Platelets 266 thou/uL (152-406); RBC Red Blood Cell Count 3.18 M/uL (3.86-4.86); Red Cell Distribution Width 13.6 % (12.1-15.2)
[2023-05-15 17:19] LABS: Albumin 3.7 g/dL (3.4-5.0); Albumin/Globulin Ratio 0.8 (1.1-1.8); Anion Gap 8.4 mEq/L (5.0-15.0); Bilirubin Total 0.3 mg/dL (0.2-1.0); Globulin 4.4 g/dL (2.3-3.5); Potassium 4.4 mEq/L (3.5-5.1); Protein, Total 8.1 g/dL (6.4-8.2)
[2023-05-15 21:19] VITALS: BP 172/58; TEMP 97.5; O2SAT 100
== END ==
LOC: ER 15:43
PROC: 0HQ1XZZ Repair Face Skin, External Approach (ICD-10-PCS; principal; 2023-05-15)
DX: S06.6X0A Traumatic subarachnoid hemorrhage without loss of consciousness, initial encounter (principal); S01.81XA Laceration without foreign body of other part of head, initial encounter; W01.0XXA Fall on same level from slipping, tripping and stumbling without subsequent striking against object, initial encounter; I10 Essential (primary) hypertension; Z88.5 Allergy status to narcotic agent
CPT/HCPCS: 85025; 36415; 85610; 85730; 80053; 70450; 12013; J1953; J2001

== ENCOUNTER 2023-06-04 10:22 | Emergency (ER) | payer OTHER, BC ==
--- NOTE | 2023-06-04 12:26 | ER ---
Nurse's Notes [facility] Name: Kalpana Guzmán Age: 83 yrs Sex: Female : 1940 Arrival Date: 06/04/2023 Time: 10:22 Bed IW1 Private MD: Diagnosis: Presentation: 06/03 10:38 Chief complaint: Patient states: R hip still hurts from her fall a few weeks ago. ll1 Coronavirus screen: Client denies travel out of the [place] in the last 14 days. At this time, the client does not indicate any symptoms associated with coronavirus-19. Ebola Screen: Patient denies travel to an Ebola-affected area in the 21 days before illness onset. Initial Sepsis Screen: Does the patient meet any 2 criteria? No. Patient's initial sepsis screen is negative. Does the patient have a suspected source of infection? No. Patient's initial sepsis screen is negative. Risk Assessment: Do you want to hurt yourself or someone else? Patient reports no desire to harm self or others. 10:38 Method Of Arrival: Ambulatory ll1 10:38 Acuity: KAITE 4 ll1 10:41 Onset of symptoms was May 27, 2023. ll1 Triage Assessment: 10:38 General: Appears uncomfortable, Behavior is calm, cooperative, appropriate for age. ll1 Pain: Complains of pain in R hip Quality of pain is described as aching, Pain began 3 weeks ago. Musculoskeletal: Reports pain in R hip. Historical: - Allergies: 10:35 Codeine; ll1 - PMHx: 10:35 Glaucoma; Hypertensive disorder; MAC; ll1 - Immunization history:: Adult Immunizations up to date. - Social history:: Smoking status: Patient denies any tobacco usage or history of. Vital Signs: 10:38 BP 160 / 65; Pulse 66; Resp 16; Temp 97.9; Pulse Ox 100% ; Weight 53.07 kg; Height 5 ll1 ft. 4 in. ; Pain 5/10; 10:38 Body Mass Index 20.08 (53.07 kg, 162.56 cm) ll1 10:38 Pain Scale: Adult ll1 ED Course: 10:26 Patient arrived in ED. im 10:35 Arm band placed on. ll1 10:38 Negrito Nelson is Attending Physician. ci 10:41 Triage completed. ll1 Administered Medications: No medications were administered Outcome: 11:39 Condition: not found in lobby when called for x-ray ll1 12:23 Condition: not in lobby still, must have eloped ll1 12:23 Eloped from waiting room, after seeing physician Time discovered patient gone: May ll2023 at 11:39 12:23 Condition: unchanged 12:26 Patient left the ED. 1 Signatures: Magda Painting RN RN ll1 Jen Cross Chizite ci Corrections: (The following items were deleted from the chart) 10:41 10:38 Chief complaint: Patient states: R hip still hurts from her fall a few days ago ll1 ll1
[2023-06-04 12:41] VITALS: BP 160/65; TEMP 97.9; O2SAT 100
--- NOTE | 2023-06-05 12:26 | EDPHYS ---
Physician Documentation [facility] Name: Kalpana Guzmán Age: 83 yrs Sex: Female : 1940 Arrival Date: 06/04/2023 Time: 10:22 Bed IW1 Private MD: ED Physician Negrito Nelson HPI: 06/03 19:50 This 83 yrs old Female presents to ER via Ambulatory with complaints of Hip Pain. ci 19:50 Patient is an 83-year-old female with PMH hypertension who presents to the ED with ci right hip pain s/p fall that occurred 2 weeks ago. Pain is aching, intermittent, nonradiating. She had a laceration and CT had at the time of her fall but did not have any hip pain. Reports that with ambulation and running errands by the end of the she has severe pain, pain is tolerable at this time. No paresthesias. Patient requesting standing x-rays.. Historical: - Allergies: 10:35 Codeine; ll1 - PMHx: 10:35 Glaucoma; Hypertensive disorder; MAC; ll1 - Immunization history:: Adult Immunizations up to date. - Social history:: Smoking status: Patient denies any tobacco usage or history of. ROS: 19:50 MS/extremity: Positive for pain, Negative for deformity, ecchymosis, erythema, ci paresthesias, 19:58 Constitutional: Negative for fever, chills, and weight loss, Cardiovascular: Negative ci for chest pain, palpitations, and edema, Respiratory: Negative for shortness of breath, cough, wheezing, and pleuritic chest pain, Exam: 19:50 Constitutional: This is a well developed, well nourished patient who is awake, alert, ci and in no acute distress. Head/Face: Normocephalic, atraumatic. Eyes: Pupils equal round and reactive to light, extra-ocular motions intact. Lids and lashes normal. Conjunctiva and sclera are non-icteric and not injected. Cornea within normal limits. Periorbital areas with no swelling, redness, or edema. ENT: Nares patent. No nasal discharge, no septal abnormalities noted. Tympanic membranes are normal and external auditory canals are clear. Oropharynx with no redness, swelling, or masses, exudates, or evidence of obstruction, uvula midline. Mucous membranes moist. Neck: Trachea midline, no thyromegaly or masses palpated, and no cervical lymphadenopathy. Supple, full range of motion without nuchal rigidity, or vertebral point tenderness. No Meningismus. Chest/axilla: Normal chest wall appearance and motion. Nontender with no deformity. No lesions are appreciated. Cardiovascular: Regular rate and rhythm with a normal S1 and S2. No gallops, murmurs, or rubs. Normal PMI, no JVD. No pulse deficits. Respiratory: Lungs have equal breath sounds bilaterally, clear to auscultation and percussion. No rales, rhonchi or wheezes noted. No increased work of breathing, no retractions or nasal flaring. Abdomen/GI: Soft, non-tender, with normal bowel sounds. No distension or tympany. No guarding or rebound. No evidence of tenderness throughout. Back: No spinal tenderness. No costovertebral tenderness. Full range of motion. Skin: Warm, dry with normal turgor. Normal color with no rashes, no lesions, and no evidence of cellulitis. MS/ Extremity: Pulses equal, no cyanosis. Neurovascular intact. Full, normal range of motion. Mild tenderness to palpation to right hip. No erythema, swelling or ecchymosis noted. DP/PT 2+, sensation to light touch is intact, cap refill less than 2 seconds. Neuro: Awake and alert, GCS 15, oriented to person, place, time, and situation. Cranial nerves II-XII grossly intact. Motor strength 5/5 in all extremities. Sensory grossly intact. Cerebellar exam normal. Normal gait. Psych: Awake, alert, with orientation to person, place and time. Behavior, mood, and affect are within normal limits. Vital Signs: 10:38 BP 160 / 65; Pulse 66; Resp 16; Temp 97.9; Pulse Ox 100% ; Weight 53.07 kg; Height 5 ll1 ft. 4 in. ; Pain 5/10; 10:38 Body Mass Index 20.08 (53.07 kg, 162.56 cm) ll1 10:38 Pain Scale: Adult ll1 MDM: 10:39 Patient medically screened. ci 19:50 Differential diagnosis: hip fracture, femoral neck fracture, bursitis, arthritis, ci strain, Osteoarthritis, rheumatoid arthritis. Data reviewed: vital signs, nurses notes. ED course: Patient presents with right hip pain s/p fall. She is nontoxic-appearing, vital signs stable. Right hip is atraumatic on exam. Right lower extremity compartment is soft, she is neurovascularly intact. Patient was offered pain meds but declined, states pain is tolerable at this time. X-ray of the right hip was ordered but patient eloped prior to getting x-rays.. Administered Medications: No medications were administered Disposition Summary: 06/04/23 12:26 Eloped Notes: Reason: unknown ll1 Signatures: Dispatcher [employer] EDMO Magda Painting RN RN ll1 Negrito Nelson ci Corrections: (The following items were deleted from the chart) 11:39 11:16 Hip Right 2 View+RAD.RAD.BRZ ordered. [facility] 19:54 19:50 ED course: Patient presents with right hip pain s/p fall. She is ci nontoxic-appearing, vital signs stable. Right hip is atraumatic on exam. Right lower extremity compartment is soft, she is neurovascularly intact. X-ray of the right hip was obtained but patient eloped prior to getting x-rays.. ci 19:56 19:50 Patient is an 83-year-old female with PMH hypertension who presents to the ED ci with right hip pain s/p fall that occurred 2 weeks ago. She had a laceration and CT had at that time but did not have any hip pain. Reports that with ambulation and running errands by the end of the she has severe pain. No paresthesias. Patient requesting standing x-rays.. ci 19:57 19:50 Differential diagnosis: hip fracture, femoral neck fracture, bursitis, arthritis, ci strain, ci 19:57 12:26 after being seen by provider ll1 ci
== END 2023-06-04 12:26 | disposition left against medical advice (07) ==
LOC: ER 10:22
DX: M25.551 Pain in right hip (principal); Z88.5 Allergy status to narcotic agent
CPT/HCPCS: 99281

== ENCOUNTER 2024-05-02 11:07 | Emergency (ER) | payer OTHER, BC ==
--- NOTE | 2024-05-02 12:32 | RAD REPORT ---
EXAM: CT CHEST, ABDOMEN AND PELVIS WITHOUT CONTRAST CLINICAL INDICATION: Female, 84 years old right side rib/chest pain TECHNIQUE: CT chest, abdomen and pelvis was performed, without IV contrast, as per department protoco l. Axial, sagittal and coronal reconstructions were obtained. One or more of the following dose reduction techniques were used: Automated exposure control, adjustment of the mA and/or kV according to the patient size, and/or iterative reconstruction. Unless otherwise specified, incidental findings do not require dedicated imaging follow-up. [id number]. COMPARISON: No prior exam. FINDINGS: The lack of intravenous contrast limits the sensitivity of this exam for evaluation of solid visceral organs, vascular structures, and retroperitoneum. THORAX: LOWER NECK AND CHEST WALL: Visualized thyroid gland and soft tissues are normal. LUNGS AND AIRWAYS: There is a scattered mild scarring and subpleural nodularity.No suspicious and/or stable pulmonary nodules. PLEURA: No pleural effusion. No pneumothorax. MEDIASTINUM AND LYMPH NODES: No mediastinal mass or fluid collection. Normal size mediastinal, hilar, and axillary lymph nodes. THORACIC AORTA: No thoracic aortic aneurysm. Atherosclerotic changes are present. PULMONARY ARTERIES: Caliber is within normal limits. Unable to evaluate for pulmonary emboli due to e ither protocol or lack of contrast. HEART: Normal heart size. Moderate coronary artery calcifications.No significant pericardial effusion . Aortic valve and mitral annular calcifications. ABDOMEN/PELVIS: UPPER GI: No significant abnormality. LIVER: No significant focal abnormality. GALLBLADDER/BILE DUCTS: No biliary ductal dilatation.? PANCREAS: No mass, ductal dilation, or terra-pancreatic fluid. SPLEEN: Unremarkable. ADRENALS: No adrenal masses. KIDNEYS AND URETERS: No hydronephrosis.No suspicious renal mass. ABDOMINAL AORTA AND OTHER VESSELS: Moderate atherosclerotic changes without aortic aneurysm. PERITONEUM: No abnormal free fluid. No free air. LYMPH NODES: No pathologic lymphadenopathy. ABDOMINAL WALL: Unremarkable SMALL BOWEL/COLON: Small bowel has normal course and caliber. No colonic wall thickening or pericolon ic inflammatory changes. Mild diverticulosis without diverticulitis. Mild formed colonic stool burden. URINARY BLADDER: Underdistended but grossly unremarkable. REPRODUCTIVE ORGANS: No pathologic process. COMBINED: MUSCULOSKELETAL: Right L2 compression deformity which is favored chronic. Motion artifact but suspect ed right ninth through 11th fractures laterally. ADDITIONAL FINDINGS: None. IMPRESSION: Suspected acute nondisplaced right ninth through 11th rib fractures. No pneumothorax. Age-indeterminate L2 compression fracture which is favored subacute or chronic.
--- NOTE | 2024-05-02 13:12 | EDPHYS ---
Physician Documentation [facility] Name: Kalpana Guzmán Age: 84 yrs Sex: Female : 1940 Arrival Date: 05/02/2024 Time: 11:07 Bed DX3 Private MD: ED Physician Julio Neely HPI: 05/02 11:50 This 84 yrs old Female presents to ER via Ambulatory with complaints of Fall Injury. cp 11:50 Details of fall: The patient fell from an upright position, while standing, to get up cp from bed. Onset: The symptoms/episode began/occurred this morning. Associated injuries: The patient sustained right lateral rib , flank and mid back area. Patient reports she lost her balance getting up from her bed causing her to fall into dresser. Historical: - Allergies: 11:33 Codeine; iw - PMHx: 11:33 Glaucoma; Hypertensive disorder; MAC; iw ROS: 11:55 Constitutional: Negative for body aches, chills, fever, poor PO intake, cp 11:55 Eyes: Negative for injury, pain, redness, and discharge, cp 11:55 ENT: Negative for drainage from ear(s), ear pain, sore throat, difficulty swallowing, difficulty handling secretions, 11:55 Cardiovascular: Positive for chest pain, of the right lower and lateral chest wall, Negative for edema, palpitations, 11:55 Respiratory: Negative for cough, shortness of breath, wheezing, 11:55 Abdomen/GI: Negative for vomiting, diarrhea, constipation, 11:55 Back: Positive for pain at rest, pain with movement, of the right subscapular area and right mid back, 11:55 Skin: Negative for cellulitis, rash, 11:55 Neuro: Negative for altered mental status, dizziness, headache, loss of consciousness, syncope, weakness, 11:55 All other systems are negative, Exam: 12:00 Constitutional: The patient appears in no acute distress, alert, awake, cp non-diaphoretic, non-toxic, well developed, well nourished, uncomfortable, 12:00 Head/Face: Normocephalic, atraumatic. cp 12:00 Eyes: Periorbital structures: appear normal, Conjunctiva: normal, no exudate, no injection, Sclera: no appreciated abnormality, Lids and lashes: appear normal, bilaterally, 12:00 ENT: External ear(s): are unremarkable, Nose: is normal, Mouth: Lips: moist, Oral mucosa: moist, Posterior pharynx: Airway: no evidence of obstruction, patent, 12:00 Neck: C-spine: vertebral tenderness, is not appreciated, crepitus, is not appreciated, ROM/movement: is normal, is supple, without pain, no range of motions limitations, no meningismus, 12:00 Chest/axilla: Inspection: normal, Palpation: crepitus, is not appreciated, tenderness, that is moderate, of the right lower and lateral chest wall, 12:00 Cardiovascular: Rate: normal, 12:00 Respiratory: the patient does not display signs of respiratory distress, Respirations: normal, no use of accessory muscles, no retractions, labored breathing, is not present, Breath sounds: are clear throughout, no decreased breath sounds, no stridor, no wheezing, 12:00 Abdomen/GI: Inspection: abdomen appears normal, Bowel sounds: active, all quadrants, Palpation: soft, in all quadrants, moderate abdominal tenderness, in the right upper quadrant, rebound tenderness, is not appreciated, voluntary guarding, is elicited in the right upper quadrant, 12:00 Back: vertebral tenderness, is not appreciated, no vertebral crepitus noted, 12:00 Skin: cellulitis, is not appreciated, no rash present. 12:00 Neuro: Orientation: to person, place \T\ time. Mentation: is normal, Motor: moves all fours, strength is normal, Gait: is steady, Vital Signs: 11:35 BP 136 / 62; Pulse 60; Resp 16; Temp 98.1; Pulse Ox 99% ; Weight 53.52 kg; Height 5 ft. iw 4 in. ; Pain 9/10; 11:35 Body Mass Index 20.25 (53.52 kg, 162.56 cm) iw 11:35 Pain Scale: Adult iw MDM: 11:32 Medical Screening Exam initiated cp 12:00 Differential diagnosis: contusion, fracture, multiple trauma, intraabdominal injury, cp hematoma. 13:12 Data reviewed: vital signs, nurses notes, radiologic studies, CT scan, and as a result, I will discharge patient. 13:12 I considered the following discharge prescriptions or medication management in the emergency department Medications were administered in the Emergency Department. See MAR. 13:12 Care significantly affected by the following chronic conditions: Hypertension. cp Counseling: I had a detailed discussion with the patient and/or guardian regarding the historical points, exam findings, and any diagnostic results supporting the discharge/admit diagnosis, radiology results, the need for outpatient follow up, a family practitioner, to return to the emergency department if symptoms worsen or persist or if there are any questions or concerns that arise at home. 05/02 11:47 Order name: CT Chest Abdomen Pelvis W/O Contrast; Complete Time: 12:41 cp 05/02 12:43 Interpretation: Report reviewed. cp 05/02 13:12 Order name: INCENTIVE SPIROMETRY cp Administered Medications: 12:05 Not Given (Patient Refused): [id number] mg PO once iw Disposition Summary: 05/02/24 13:12 Discharge Ordered Notes: Location: Home cp Problem: new cp Symptoms: have improved cp Condition: Stable cp Diagnosis - Multiple fractures of ribs, right side cp Followup: cp - With: Private Physician - When: 2 - 3 days - Reason: Recheck today's complaints Discharge Instructions: - Discharge Summary Sheet cp - Rib Fracture cp - How to Use an Incentive Spirometer cp Forms: - Medication Reconciliation Form cp - Antibiotic Education cp - Prescription Opioid Use cp - Patient Portal Instructions cp - Leadership Thank You Letter cp Prescriptions: - Ultracet 37.5-325 mg Oral tablet - take 1 tablet ORAL route every 6 hours - for up to 5 days; do not exceed 8 cp tablets per day.; 20 tablet; Refills: 0, Product Selection Permitted Signatures: Dispatcher [employer] Ludy Freedman RN RN iw Page, Corey, PA PA cp Corrections: (The following items were deleted from the chart) 12: 11:50 Patient reports she lost her balance getting up from her bed causing her to fall cp into table. cp
--- NOTE | 2024-05-02 13:12 | ER ---
Nurse's Notes [facility] Name: Kalpana Guzmán Age: 84 yrs Sex: Female : 1940 Arrival Date: 05/02/2024 Time: 11:07 Bed DX3 Private MD: Diagnosis: Multiple fractures of ribs, right side Presentation: 05/02 11:31 Chief complaint: Patient states: tripped and fell on right side, hit a dresser , hurts iw in right side of ribs when she takes a deep breath happened last night. 11:31 Acuity: KATIE 4 iw 11:32 Coronavirus screen: At this time, the client does not indicate any symptoms associated iw with coronavirus-19. Ebola Screen: No symptoms or risks identified at this time. Initial Sepsis Screen: Does the patient meet any 2 criteria? Does the patient have a suspected source of infection?. Risk Assessment: Do you want to hurt yourself or someone else? Patient reports no desire to harm self or others. Onset of symptoms was May 01, 2024. 11:32 Method Of Arrival: Ambulatory iw 11:34 Acuity: KATIE 3 iw Historical: - Allergies: 11:33 Codeine; iw - PMHx: 11:33 Glaucoma; Hypertensive disorder; MAC; iw Assessment: 12:03 Reassessment: pt at triage room asking for pain medicine but she refuses tylenol , pt iw does not have a ride to pick her up ,I explained to pt that she needs to arrange for someone to pick her up if we give her narcotic pain meds , pt refuses. Vital Signs: 11:35 BP 136 / 62; Pulse 60; Resp 16; Temp 98.1; Pulse Ox 99% ; Weight 53.52 kg; Height 5 ft. iw 4 in. ; Pain 9/10; 11:35 Body Mass Index 20.25 (53.52 kg, 162.56 cm) iw 11:35 Pain Scale: Adult iw ED Course: 11:09 Patient arrived in ED. im 11:13 Julio Swartz PA is PHCP. cp 11:13 Julio Neely MD is Attending Physician. cp 11:32 Triage completed. iw 11:33 Arm band placed on. iw 12:12 CT Chest Abdomen Pelvis W/O Contrast In Process Unspecified. EDMS Administered Medications: 12:05 Not Given (Patient Refused): [id number] mg PO once iw Outcome: 13:12 Discharge ordered by MD. rojas 13:29 Patient left the ED. hb Signatures: Dispatcher [employer] Ludy Freedman RN RN iw Julio Swartz PA PA cp Baxter, Heather, RN RN Jen Cross
[2024-05-02 13:46] VITALS: BP 136/62; TEMP 98.1; O2SAT 99
== END 2024-05-02 13:29 | disposition home or self-care (01) ==
LOC: ER 11:07
DX: S22.41XA Multiple fractures of ribs, right side, initial encounter for closed fracture (principal); W06.XXXA Fall from bed, initial encounter
CPT/HCPCS: 71250; 74176; 99281